=== PATIENT | female | born 1980 | race Caucasian/White ===

== ENCOUNTER 2021-08-28 11:58 | Emergency (ER) | payer MEDICAID, SELFPAY ==
[2021-08-28] VITALS (25 sets, daily range): BP systolic 124–142; BP diastolic 67–96; PULSE 85–116; RESP 8–26; TEMP 37.7–39.4; O2SAT 93–100
--- NOTE | ~2021-08-28 | XR_ITS ---
XR chest 2V 08/28/2021 12:34 Indication: Left-sided chest pain Procedure: 2 view chest Comparison: No prior studies for comparison. Findings: Heart size normal. Left basilar infiltrates. No edema, pleural effusion or pneumothorax. No acute osseous abnormality. Impression: 1: Left basilar infiltrates, most likely atelectasis. Pneumonia less favored. Reviewed, dictated and finalized at location A. Impression: 1: Left basilar infiltrates, most likely atelectasis. Pneumonia less favored.
--- NOTE | 2021-08-28 11:59 | ECG_ITS ---
Measurements Intervals [place] Rate: 102 P: 21 MI: 151 QRS: -4 QRSD: 86 T: 25 QT: 314 QTc: 411 Interpretive Statements SINUS TACHYCARDIA INCOMPLETE RIGHT BUNDLE BRANCH BLOCK DELAYED PRECORDIAL R/S TRANSITION LOW QRS VOLTAGE IN PRECORDIAL LEADS BORDERLINE T WAVE ABNORMALITY- ANTERIOR LEADS BORDERLINE ECG Electronically Signed On 08-28-2021 13:02:17 CDT by Carlos Salcido D.O.
[2021-08-28 12:22] LABS: Basophils Absolute Auto 0.1 K/mm3 (0.0-0.1); Basophils Percent Auto 0.4 % (0.2-1.2); Eosinophils Percent Auto 0.2 % (0-4.4); Hematocrit 38.9 % (37.0-47.0); Immature Granulocyte Absolute 0.05 K/mm3 (0.00-0.031); Immature Granulocyte Percent A 0.4 % (0-0.5); Lymphocytes Absolute Auto 1.16 K/mm3 (0.9-3.2); Lymphocytes Percent Auto 8.9 % (18.3-44.2); Mean Corpuscular HGB Conc 33.4 g/dl (32-36); Mean Corpuscular Hemoglobin 30.1 pg (26-34); Mean Platelet Volume 10.6 fl (7.4-10.4); Monocytes Absolute Auto 1.6 K/mm3 (0.1-0.6); Monocytes Percent Auto 11.9 % (2.6-8.5); Neutrophils Absolute Auto 10.2 K/mm3 (1.3-6.7); Neutrophils Percent Auto 78.2 % (45.5-73.1); Platelet Count Result 263 k/mm3 (150-375); Red Blood Count 4.32 M/mm3 (4.2-5.4); Red Cell Distribution Width 12.1 % (11.5-14.5); White Blood Count 13.1 K/mm3 (4.5-10.0)
--- NOTE | 2021-08-28 12:31 | PC.NURSE ---
Patient off unit to Radiology .
[2021-08-28 12:32] LABS: INR 1.1; Prothrombin Time 13.6 Seconds (11.1-14.7)
[2021-08-28 12:33] LABS: Alanine Aminotransferase 91 U/L (6-35); Albumin Level 4.2 g/dL (3.5-5.1); Alkaline Phosphatase 94 U/L (38-126); Anion Gap 6 mmol/L (8-16); Aspartate Amino Transferase 66 U/L (14-36); Bilirubin,Total 2.7 mg/dL (0.2-1.3); Blood Urea Nitrogen 10 mg/dL (7-17); Calcium 8.9 mg/dL (8.4-10.2); Carbon Dioxide 24 mmol/L (22-30); Chloride 106 mmol/L (98-107); Estimated CRCL calculation 106 ml/min; Estimated Glomerular Filt Rate > 60; Glucose 103 mg/dL (65-110); Lipase 20 U/L (23-300); Partial Thromboplastin Time 32.5 SECONDS (22.3-36.8); Potassium 4.1 mmol/L (3.4-5.0); Sodium 136 mmol/L (137-145)
[2021-08-28 12:44] LABS: Troponin I < 0.012 ng/mL (0.000-0.034)
--- NOTE | 2021-08-28 12:51 | PC.NURSE ---
Dr. Muhammad at bedside to assess pt.
[2021-08-28] MEDS: ONDANSETRON INJ 4 MG/2 ML VIAL IV PUSH (13:11)
[2021-08-28] MEDS: SODIUM CHLORIDE 0.9% IV 1,000 ML 999 ML IV CONT (13:11)
[2021-08-28] MEDS: KETOROLAC 30 MG/ML VIAL (*BKC) IV PUSH (13:11)
[2021-08-28 13:21] LABS: Appearance Urine Cloudy (Clear); Bilirubin Urine Negative (Negative); Blood Urine 2+ (Negative); Color Urine Yellow (Yellow); Glucose Urine UA Negative (Negative); Ketones Urine Negative (Negative); Leukocyte Esterase Ur 3+ LEU/UL (Negative); Nitrate Urine Positive (Negative); Protein Urine 3+ mg/dL (Negative); Specific Grav Ur 1.025 (1.001-1.035); Urobilinogen Urine >=8.0 mg/dL (<2.0); pH Urine 7.5 (5.0-9.0)
[2021-08-28 13:29] LABS: Add Urine Microscopic? YES; Bacteria Urine Trace /hpf; Squamous Epithelial Cell Urine Occasional /hpf (Few); WBC Clumps Urine Present /HPF; WBC Urine >75 /hpf
[2021-08-28] MEDS: ACETAMINOPHEN 500 MG TABLET 1000 MG PO (13:51)
--- NOTE | 2021-08-28 14:07 | ED.GENADULT ---
HPI - General Adult General Chief complaint: Chest Pain Stated complaint: chest pain Time Seen by Provider: 08/28/21 12:40 History of Present Illness HPI narrative: Patient is a 41-year-old female who presents ER with left-sided back pain. Sudden onset. Goes up into her shoulder into her leg. Associate with some chest pain as well. She also endorses some left side abdominal. Developed nausea while here. Been ongoing for couple of hours. Patient can be febrile here. No sinus congestion sore throat or productive cough. No known sick contacts. She does endorse that she has had some dark burning urination for the last week. Has history of kidney infections unsure if this is similar. Has not take any pain medication for her discomfort. Related Data Allergies Allergy/AdvReac Type Severity Reaction Status Date / Time No Known Allergies Allergy Verified 08/28/21 12:47 Review of Systems Review of Systems: All systems reviewed & are unremarkable except as noted in HPI and below Constitutional: Constitutional: Denies chills, Reports fatigue and Reports fever(s) ENT: Denies nasal congestion and Denies sore throat Cardiovascular: Cardiovascular: Reports chest pain, Denies rapid heart rate and Reports radiating jaw, neck or arm pain Respiratory: Respiratory: Denies chest congestion, Denies cough and Denies dyspnea Gastrointestinal: Gastrointestinal: Reports abdominal pain, Denies diarrhea, Reports nausea and Denies vomiting Genitourinary: Genitourinary: Denies hematuria, Reports nocturia, Reports dysuria and Reports flank pain Musculoskeletal: Musculoskeletal: Reports myalgias and Denies arthralgias PMFSH Past Medical History Medical History (Updated 08/28/21 @ 16:33 by Huber Muhammad MD) Healthy female adult Surgical History Surgical History (Updated 08/28/21 @ 14:09 by Huber Muhammad MD) No history of previous surgery Social History Social History (Updated 08/28/21 @ 14:09 by Huber Muhammad MD) Smoking status: Never smoker Exam Narrative: GENERAL: Fatigued-appearing, well-nourished, and in no acute distress. HEAD: Normocephalic, atraumatic. EYES: PERRL and EOMI. ENT: Nares clear, no rhinorrhea or epistaxis. Mucous membranes moist. NECK: Supple. CHEST: Clear to auscultation. No respiratory distress. HEART: Tachycardic and regular. Normal peripheral pulses. ABDOMEN: Soft, nontender, nondistended, normal active bowel sounds. Back: No reproducible midline tenderness of the T/L-spine. Left CVA tenderness noted but no right CVA tenderness. No palpable spasm in the paraspinal musculature. EXTREMITIES: Normal range of motion. No edema. SKIN: Warm, dry, no rash. NEURO: Alert and oriented x3. PSYCH: Normal mood and affect. Course Vital Signs Vital signs: Vital Signs Temperature 101.7 F H 08/28/21 12:01 Pulse Rate 108 H 08/28/21 12:01 Respiratory Rate 14 08/28/21 12:01 Blood Pressure 142/89 H 08/28/21 12:01 Pulse Oximetry 100 08/28/21 12:01 Oxygen Delivery Room Air 08/28/21 12:01 Temperature 99.9 F H 08/28/21 14:45 Pulse Rate 102 H 08/28/21 14:45 Respiratory Rate 10 L 08/28/21 14:45 Blood Pressure 138/92 H 08/28/21 14:31 Pulse Oximetry 94 08/28/21 14:45 Oxygen Delivery Room Air 08/28/21 12:48 Medical Decision Making Vital Signs Vital Signs: Vital Signs Temperature 101.7 F H 08/28/21 12:01 Pulse Rate 108 H 08/28/21 12:01 Respiratory Rate 14 08/28/21 12:01 Blood Pressure 142/89 H 08/28/21 12:01 Pulse Oximetry 100 08/28/21 12:01 Oxygen Delivery Room Air 08/28/21 12:01 Temperature 99.9 F H 08/28/21 14:45 Pulse Rate 102 H 08/28/21 14:45 Respiratory Rate 10 L 08/28/21 14:45 Blood Pressure 138/92 H 08/28/21 14:31 Pulse Oximetry 94 08/28/21 14:45 Oxygen Delivery Room Air 08/28/21 12:48 Lab Data Result diagrams: 08/28/21 12:12 08/28/21 12:12 Labs: Lab Results 08/28/21 0
[2021-08-28 14:12] LABS: Influenza A QL RT-PCR Negative (Negative); Influenza B QL RT-PCR Negative (Negative); SARS-CoV-2 RNA PCR Negative
[2021-08-28 16:16] LABS: Troponin I < 0.012 ng/mL (0.000-0.034)
== END 2021-08-28 16:53 | disposition home or self-care (01) ==
PROVIDERS: Emergency Medicine; Emergency Provider Emergency Medicine
DX: N12 Tubulo-interstitial nephritis, not specified as acute or chronic (principal); Z20.822 Contact with and (suspected) exposure to COVID-19
CPT/HCPCS: 36415; 71046; 80053; 81001; 83690; 84484; 85025; 85610; 85730; 87077; 87086; 87088; 87186; 87502; 93005; 96365; 96375; 99284; A9270; C9803; J0696; J1885; J2405; J7030; U0003; U0005

== ENCOUNTER 2022-01-07 15:15 | Emergency (ER) | payer OTHER, SELFPAY ==
[2022-01-07 15:24] VITALS: BP 150/97; PULSE 96; RESP 16; TEMP 36.8; O2SAT 99
--- NOTE | 2022-01-07 15:32 | ED.BACK ---
HPI - Back Pain/Injury General Chief Complaint: Back Pain/Injury Stated Complaint: lowerback/rib pain Time Seen by Provider: 01/07/22 15:30 Source: patient Mode of arrival: ambulatory Limitations: no limitations History of Present Illness HPI Narrative: Ms. Parry is a 41-year-old female patient presenting to clinic today with complaints of low back pain and bilateral rib pain. She reports that she had episode of nausea and vomiting 2 days ago and developed back pain and rib pain yesterday. She reports she is taking some old Flexeril in they do not seem to be helping her. Feels as though she is having muscle spasms in her back as well as in her ribs. She denies any shortness of breath or chest pain. States that she does have some pain with walking and trying to stand up straight. She rates her pain a 9/10 currently. She has not taken any pain medications this morning Related Data Home Medications Medication Instructions Recorded Confirmed hydroxyzine HCl 25 mg tablet mg 01/07/22 Allergies Allergy/AdvReac Type Severity Reaction Status Date / Time No Known Allergies Allergy Unverified 09/02/21 11:01 Review of Systems Review of Systems: Pertinent positives per HPI. Patient denies any fever, chills, rash, headache, visual changes, dizziness, cough, runny nose, sore throat, shortness of breath, chest pain, palpitations, nausea, vomiting, diarrhea, constipation, abdominal pain, or any urinary issues. PMFSH Past Medical History Medical History Healthy female adult Surgical History Surgical History No history of previous surgery Social History Social History Smoking status: Never smoker Comments At the time of my signature, I reviewed and agree with the nursing past medical, surgical, social, and family history. There is no relevant family history pertinent to the patient complaint. Exam Narrative: General: Well-developed, well nourished, in no apparent distress Head: Normocephalic, atraumatic. Cardio: Regular rate and rhythm, s1 and s2 normal, no murmur appreciated. Resp: Clear to auscultation bilaterally, no rhonchi, rales, wheezing or rubs. Musculoskeletal: No deformity, exquisite tenderness to light palpation across the low back and across the upper abdomen lower ribs, grossly normal range of motion, muscle strength strong and equal, peripheral pulse strong, no edema, no cyanosis, cautious and slow gait and station. Not wanting to stand up straight due to pain Course Course Emergency Course: Portions of this record may have been created with voice recognition software. Level of Care: Express Care Visit Vital Signs Vital signs: Vital Signs Temperature 36.8 C 01/07/22 15:24 Pulse Rate 96 01/07/22 15:24 Respiratory Rate 16 01/07/22 15:24 Blood Pressure 150/97 H 01/07/22 15:24 Pulse Oximetry 99 01/07/22 15:24 Oxygen Delivery Room Air 01/07/22 15:24 Temperature 36.8 C 01/07/22 15:24 Pulse Rate 96 01/07/22 15:24 Respiratory Rate 16 01/07/22 15:24 Blood Pressure 150/97 H 01/07/22 15:24 Pulse Oximetry 99 01/07/22 15:24 Oxygen Delivery Room Air 01/07/22 15:24 Vital signs reviewed MDM - Back Pain/Injury MDM Narrative Medical decision making narrative: At the time of visit patient is resting in the exam chair with moderate to severe pain. She rates her pain 9 at 10 currently. Toradol 60 mg IM given in the clinic today. I suspect the patient has also lower lumbar strain and abdominal wall muscle strain from vomiting 2 days [address] I will place her on a prescription for some naproxen as well as some Flexeril. Differential Diagnosis Differential diagnosis: Likely lumbar radiculopathy, strain of lumbar region and other ( Abdominal wall pain) Discharge Plan Discharge
[2022-01-07] MEDS: KETOROLAC (*BKC) 60 MG/2 ML VIAL IM (15:39)
== END 2022-01-07 16:06 | disposition home or self-care (01) ==
PROVIDERS: Emergency Provider Nurse Practitioner Family; PCP Physician Assistant
DX: S39.012A Strain of muscle, fascia and tendon of lower back, initial encounter (principal); S39.011A Strain of muscle, fascia and tendon of abdomen, initial encounter; X58.XXXA Exposure to other specified factors, initial encounter
CPT/HCPCS: 96372; 99213; G0463; J1885

== ENCOUNTER 2022-03-19 07:29 | Outpatient (CLI) | payer OTHER, SELFPAY ==
--- NOTE | ~2022-03-19 | MM_ITS ---
EXAMINATION: MM screening samia BI w mathew HISTORY: Screening mammogram TECHNIQUE: Craniocaudal and mediolateral oblique 3-D tomosynthesis images were obtained and synthetic 2-D images were generated. Bilateral rotated lateral CC views. CAD analysis was submitted and interp reted. COMPARISON: No prior mammogram is available for comparison at this institution. BREAST PARENCHYMAL COMPOSITION: The breasts are heterogeneously dense, which may obscure small masses . FINDINGS: There is no evidence of suspicious mass, calcification, or architectural distortion to sugg est malignancy in either breast. There has been no suspicious interval change. IMPRESSION: 1. No mammographic evidence of malignancy. 2. Recommend routine screening mammography in one year. BI-RADS Category 1: Negative Reviewed, dictated and finalized at location B. [employer]
== END 2022-03-19 07:30 | disposition home or self-care (01) ==
LOC: ANHIMG 07:32
PROVIDERS: PCP Physician Assistant; Visit Provider Physician Assistant
DX: Z12.31 Encounter for screening mammogram for malignant neoplasm of breast (principal)
CPT/HCPCS: 77063; 77067

== ENCOUNTER 2022-07-20 15:15 | Emergency (ER) | payer OTHER, SELFPAY ==
[2022-07-20 15:24] VITALS: BP 139/84; PULSE 72; RESP 16; TEMP 37; O2SAT 99
--- NOTE | 2022-07-20 15:57 | ED.GENADULT ---
HPI - General Adult General Chief complaint: Urogenital-Female Stated complaint: Vaginal Problems Source: patient Mode of arrival: ambulatory Limitations: no limitations History of Present Illness HPI narrative: Patient presents for evaluation of a burning sensation in her vagina this started 3 days ago. She believes she has an infection associated with using a public toilet 2 days prior to that. She has noted some blood and white discharge on tissue when wiping after urinating. She believes she cut herself with her fingernail when wiping vigorously following urination. She states her significant other two months ago and she has not been sexually active since that time. She has not had a period since December 2021. She has an IUD. Denies any abdominal pain, nausea, vomiting, fever chills. Denies any hx of STI. States she has burning sensation during urination without other urinary symptoms. Related Data Home Medications Medication Instructions Recorded Confirmed Unknown Iud 07/20/22 amitriptyline 100 mg tablet mg 07/20/22 hydrochlorothiazide 25 mg tablet mg 07/20/22 Allergies Allergy/AdvReac Type Severity Reaction Status Date / Time No Known Allergies Allergy Verified 07/20/22 15:26 Review of Systems Review of Systems: CONSTITUTIONAL: Denies fever, chills, or sweats. EYES: Denies visual changes, redness, or discharge. ENT: Denies rhinorrhea, congestion, sore throat, or otalgia. CARDIOVASCULAR: Denies chest pain, palpitations, or edema. RESPIRATORY: Denies cough or dyspnea. GASTROINTESTINAL: Denies abdominal pain, nausea, vomiting, or diarrhea. GENITOURINARY: reports burning sensation in the vagina with white discharge. Reports blood on the tissue when wiping following urination. Reports dysuria without other urinary symptoms. Denies vaginal bleeding other than on tissue when wiping following urination. SKIN: reports a wound to the vaginal area MUSCULOSKELETAL: Denies back pain, joint pain, or myalgia. NEUROLOGIC: Denies headache, numbness, dizziness, or weakness. PSYCHIATRIC: Denies anxiety or depression. [facility] Past Medical History Medical History Healthy female adult Surgical History Surgical History No history of previous surgery Family History Family History Mother Family history non-contributory Social History Social History Smoking status: Never smoker Gender identity (if verbalized by the patient): Female Sexual Orientation (if Verbalized by the Patient): Straight or Heterosexual Spiritual care concerns: No Exam Narrative: GENERAL: Well-appearing, well-nourished, and in no acute distress. HEAD: Normocephalic, atraumatic. EYES: PERRLA and EOMI. ENT: Nares clear, no rhinorrhea or epistaxis. Mucous membranes moist. Oropharynx without tonsillar hypertrophy exudate or other lesions. Bilateral TMs pearly conteh nonbulging NECK: Supple. No adenopathy or masses. No carotid bruits or JVD CHEST: Clear to auscultation. No respiratory distress. No wheezes rales or rhonchi HEART: Regular rate and rhythm. No murmur heard. Normal peripheral pulses. ABDOMEN: Soft, nontender, nondistended, normal active bowel sounds. EXTREMITIES: Normal range of motion. No edema. GENITAL: (performed in company of manager supply chain planning ISABELA Hauser): no external genital lesions. There is a linear fissure between the labia which appears to be a simple excoriation. Labia are erythematous. There is a thick yellow/ green discharge in vaginal vault. I cannot visualize IUD strings. She has no adnexal tenderness or cervical motion tenderness SKIN: Warm, dry, no rash. NEURO: No focal deficits. Alert and oriented x3. PSYCH: Normal mood and affect. Course Cours
== END 2022-07-20 16:00 | disposition home or self-care (01) ==
PROVIDERS: Emergency Provider Nurse Practitioner; PCP Physician Assistant
DX: N76.0 Acute vaginitis (principal); N30.00 Acute cystitis without hematuria
CPT/HCPCS: 81003; 81025; 87070; 87086; 87255; 87491; 87591; 87661; 99214; G0463

== ENCOUNTER 2022-11-23 13:29 | Emergency (ER) | payer OTHER, SELFPAY ==
--- NOTE | ~2022-11-23 | XR_ITS ---
XR lumbar spine 2-3V 11/23/2022 14:11 Indication: Low back pain Procedure: 3 views lumbar spine Comparison: No prior studies for comparison. Findings: Vertebral body heights are maintained. There is disc narrowing at all lumbar levels. There is facet hypertrophy at L4-5 and L5-S1. No acute fracture or traumatic malalignment. No evidence for spondylolisthesis. Pedicles intact. There is an IUD in the pelvis. Sacral foramen are symmetric. Impression: 1: Moderate lumbar spondylosis. Reviewed, dictated and finalized at location L. Impression: 1: Moderate lumbar spondylosis.
--- NOTE | 2022-11-23 13:40 | ED.BACK ---
HPI - Back Pain/Injury General Chief Complaint: Back Pain/Injury Stated Complaint: Back/Left Leg Pain Time Seen by Provider: 11/23/22 13:41 Source: patient Mode of arrival: ambulatory Limitations: no limitations History of Present Illness HPI Narrative: Abena is a 42-year-old female patient presenting to the clinic today with complaints of back and left leg pain. She reports the pain started approximately 3 weeks ago when she got out of her truck and felt a pop to her left lower back. She denies any saddle anesthesia or loss of bowel bladder. Reports that she is having numbness and tingling in the left leg with the low back/hip pain. States she went to her PCP 1 week ago and was prescribed a muscle relaxer as they thought at that time that her pain was caused by muscle spasms. She has been taking ibuprofen with minimal relief. Rates her pain a 10/10 currently. Last dose of Motrin was at 6:00 a.m. this morning. States she is unable to sit due to the pain and standing will not bearing much weight on her left leg is the most comfortable position. She reports she is having difficulty walking due to the pain. Related Data Home Medications Medication Instructions Recorded Confirmed Unknown Iud 07/20/22 amitriptyline 100 mg tablet mg 07/20/22 hydrochlorothiazide 25 mg tablet mg 07/20/22 cyclobenzaprine 10 mg tablet mg 11/23/22 11/23/22 Allergies Allergy/AdvReac Type Severity Reaction Status Date / Time No Known Allergies Allergy Verified 11/23/22 13:45 Review of Systems Review of Systems: Pertinent positives per HPI. Patient denies any fever, chills, rash, headache, visual changes, dizziness, cough, runny nose, sore throat, shortness of breath, chest pain, palpitations, nausea, vomiting, diarrhea, constipation, abdominal pain, or any urinary issues. [facility] Past Medical History Medical History Healthy female adult Surgical History Surgical History No history of previous surgery Family History Family History Mother Family history non-contributory Social History Social History Smoking status: Never smoker Gender identity (if verbalized by the patient): Female Sexual Orientation (if Verbalized by the Patient): Straight or Heterosexual Spiritual care concerns: No Comments At the time of my signature, I reviewed and agree with the nursing past medical, surgical, social, and family history. There is no relevant family history pertinent to the patient complaint. Exam Narrative: General: Well-developed, well nourished, in no apparent distress Head: Normocephalic, atraumatic. Cardio: Regular rate and rhythm, s1 and s2 normal, no murmur appreciated. Resp: Clear to auscultation bilaterally, no rhonchi, rales, wheezing or rubs. Musculoskeletal: No deformity, non-tender to palpation, grossly normal range of motion, muscle strength strong and equal, peripheral pulse strong, no edema, no cyanosis, normal gait and station Course Course Emergency Course: Portions of this record may have been created with voice recognition software. Level of Care: Express Care Visit Vital Signs Vital signs: Vital signs reviewed MDM - Back Pain/Injury MDM Narrative Medical decision making narrative: At the time of visit patient is resting on the exam table. X-ray of the lumbar spine was performed and was negative for any sign fracture or malalignment. I suspect the patient has lumbar radiculopathy with sciatica on the left side. Toradol 60 mg IM was given in the clinic for pain. Prescription for Medrol Dosepak was also given. Patient is continue her muscle relaxers. Supportive measures were discussed with the patient she voiced understanding the discharge instructions. Return to
[2022-11-23 13:44] VITALS: BP 117/70; PULSE 85; RESP 16; TEMP 37.4; O2SAT 98
[2022-11-23 13:46] VITALS: BP 117/70; PULSE 85; RESP 16; TEMP 37.4; O2SAT 98
[2022-11-23] MEDS: KETOROLAC (*BKC) 60 MG/2 ML VIAL IM (14:14)
== END 2022-11-23 14:38 | disposition home or self-care (01) ==
PROVIDERS: Emergency Provider Nurse Practitioner Family; PCP Physician Assistant
DX: M54.42 Lumbago with sciatica, left side (principal)
CPT/HCPCS: 72100; 96372; 99213; G0463; J1885

== ENCOUNTER 2023-05-22 17:26 | Emergency (ER) | payer OTHER, SELFPAY ==
[2023-05-22 17:49] VITALS: BP 134/92; PULSE 91; RESP 16; TEMP 37.6; O2SAT 100
--- NOTE | 2023-05-22 18:32 | ED.GENADULT ---
HPI - General Adult General Chief complaint: Upper Respiratory Infection Stated complaint: SOB, freezing Source: patient Mode of arrival: ambulatory Limitations: no limitations History of Present Illness HPI narrative: Patient presents for evaluation of sick symptoms for last 3 days. Symptoms include fever, chills, headache, sore throat, sinus congestion, clear rhinorrhea, mild shortness of breath. She denies any significant cough, nausea, vomiting, diarrhea. No recent sick contacts to her knowledge. She is taking nytl-[id number]-[id number] cough and cold medications with mild improvement in her symptoms or after. She does not smoke. Related Data Home Medications Medication Instructions Recorded Confirmed hydrochlorothiazide 25 mg tablet 25 mg PO DAILY 07/20/22 05/22/23 dulaglutide 3 mg/0.5 mL See Rx Instructions .Route .COMPLEX 05/22/23 05/22/23 subcutaneous pen injector (Trulicity) Allergies Allergy/AdvReac Type Severity Reaction Status Date / Time No Known Allergies Allergy Verified 05/22/23 17:36 Review of Systems Review of Systems: CONSTITUTIONAL: Reports fever and chills. EYES: Denies visual changes, redness, or discharge. ENT: Reports sinus congestion, clear rhinorrhea, sore throat. CARDIOVASCULAR: Denies chest pain, palpitations, or edema. RESPIRATORY: Reports mild shortness of breath. Denies significant cough. GASTROINTESTINAL: Denies abdominal pain, nausea, vomiting, or diarrhea. GENITOURINARY: Denies dysuria or hematuria. SKIN: Denies rash or itching. MUSCULOSKELETAL: Denies back pain, joint pain, or myalgia. NEUROLOGIC: Reports headache. Denies numbness, dizziness, or weakness. PSYCHIATRIC: Denies anxiety or depression. [facility] Past Medical History Medical History Healthy female adult Surgical History Surgical History No history of previous surgery Family History Family History Mother Family history non-contributory Social History Social History Smoking status: Never smoker Substance use: never Gender identity (if verbalized by the patient): Female Sexual Orientation (if Verbalized by the Patient): Straight or Heterosexual Spiritual care concerns: No Exam Narrative: GENERAL: appears acutely ill but nontoxic. HEAD: Normocephalic, atraumatic. EYES: PERRLA and EOMI. ENT: Nares clear, no rhinorrhea or epistaxis. Mucous membranes moist. Mild posterior pharyngeal erythema. No exudate. Uvula is midline.. Bilateral TMs pearly cnoteh nonbulging NECK: Supple. No adenopathy or masses. No carotid bruits or JVD CHEST: Clear to auscultation. No respiratory distress. No wheezes rales or rhonchi HEART: Regular rate and rhythm. No murmur heard. Normal peripheral pulses. ABDOMEN: Soft, nontender, nondistended, normal active bowel sounds. EXTREMITIES: Normal range of motion. No edema. SKIN: Warm, dry, no rash. NEURO: No focal deficits. Alert and oriented x3. PSYCH: Normal mood and affect. Course Course Emergency Course: This is a 42-year-old female who presented for evaluation of sick symptoms. Influenza B positive. Will treat with Tamiflu. Increase hydration. Dzcu-ajw-grxjpln agents for symptom management. Follow up with primary provider. Go to the ER for worsening symptoms. Patient in agreement with plan of care. Level of Care: Express Care Visit Vital Signs Vital signs: Vital Signs Temperature 37.6 C 05/22/23 17:49 Pulse Rate 91 05/22/23 17:49 Respiratory Rate 16 05/22/23 17:49 Blood Pressure 134/92 H 05/22/23 17:49 Pulse Oximetry 100 05/22/23 17:49 Oxygen Delivery Room Air 05/22/23 17:49 Temperature 37.6 C 05/22/23 17:49 Pulse Rate 91 05/22/23 17:49 Respiratory Rate 16
== END 2023-05-22 18:52 | disposition home or self-care (01) ==
PROVIDERS: Emergency Provider Nurse Practitioner; PCP Physician Assistant
DX: J10.1 Influenza due to other identified influenza virus with other respiratory manifestations (principal); Z20.822 Contact with and (suspected) exposure to COVID-19
CPT/HCPCS: 87081; 87426; 87804; 87880; 99213; G0463

== ENCOUNTER 2023-06-06 07:26 | Outpatient (CLI) | payer OTHER, SELFPAY ==
--- NOTE | ~2023-06-06 | MM_ITS ---
EXAMINATION: MM screening samia BI w mathew HISTORY: Screening mammogram TECHNIQUE: Craniocaudal and mediolateral oblique 3-D tomosynthesis images were obtained and synthetic 2-D images were generated. CAD analysis was submitted and interpreted. COMPARISON: 03/19/2022 bilateral screening mammogram BREAST PARENCHYMAL COMPOSITION: The breasts are heterogeneously dense, which may obscure small masses . FINDINGS: There is no evidence of suspicious mass, calcification, or architectural distortion to sugg est malignancy in either breast. There has been no suspicious interval change. IMPRESSION: 1. No mammographic evidence of malignancy. 2. Recommend routine screening mammography in one year. BI-RADS Category 1: Negative Reviewed, dictated and finalized at location A.
== END 2023-06-06 07:27 | disposition home or self-care (01) ==
LOC: ANHIMG 07:28
PROVIDERS: PCP Physician Assistant; Visit Provider Physician Assistant
DX: Z12.31 Encounter for screening mammogram for malignant neoplasm of breast (principal)
CPT/HCPCS: 77063; 77067

== ENCOUNTER 2023-12-04 16:02 | Emergency (ER) | payer OTHER, SELFPAY ==
[2023-12-04 16:13] VITALS: BP 130/88; PULSE 78; RESP 16; TEMP 36.2; O2SAT 99
--- NOTE | 2023-12-04 16:28 | ED.URI ---
HPI - URI/Sore Throat General Chief Complaint: Upper Respiratory Infection Stated Complaint: runny nose,hurts to swallow,loss of voice Time Seen by Provider: 12/04/23 16:31 Source: patient, RN notes reviewed and old records reviewed Mode of arrival: ambulatory Limitations: no limitations History of Present Illness HPI Narrative: Patient presents with complaints of runny nose, sore throat, hoarse voice. Symptoms began yesterday. She reports most bothersome symptoms are sore throat and hoarseness. She denies any fever, chills, sweats. She denies any injury or trauma. No other concerns or complaints at this time. Related Data Home Medications Medication Instructions Recorded Confirmed hydrochlorothiazide 25 mg tablet 25 mg PO DAILY 07/20/22 12/04/23 dulaglutide 3 mg/0.5 mL See Rx Instructions .Route .COMPLEX 05/22/23 12/04/23 subcutaneous pen injector (Trulicity) Allergies Allergy/AdvReac Type Severity Reaction Status Date / Time No Known Allergies Allergy Verified 12/04/23 16:09 Review of Systems Review of Systems: All systems reviewed & are unremarkable except as noted in HPI and below Constitutional: Constitutional: Reports no additional constitutional complaints ENT: Reports system reviewed and no additional complaints, except as documented, Reports as per HPI, Reports change in voice, Reports hoarseness, Reports nasal congestion, Reports nasal discharge and Reports sore throat Cardiovascular: Cardiovascular: Reports no additional cardiovascular complaints Respiratory: Respiratory: Reports no additional respiratory complaints Gastrointestinal: Gastrointestinal: Reports no additional gastrointestinal complaints [facility] Past Medical History Medical History Healthy female adult Surgical History Surgical History No history of previous surgery Family History Family History Mother Family history non-contributory Social History Social History Smoking status: Never smoker Substance use: never Gender identity (if verbalized by the patient): Female Sexual Orientation (if Verbalized by the Patient): Straight or Heterosexual Spiritual care concerns: No Comments At the time of my signature, I reviewed and agree with the nursing past medical, surgical, social, and family history. There is no relevant family history pertinent to the patient complaint. Exam Const: General: cooperative, no acute distress, alert and awake Orientation/consciousness: oriented to person, oriented to place and oriented to time HENMT: Head: normal to inspection Ears: TM's normal bilaterally Mouth: Yes moist mucous membranes Throat: posterior oropharynx abnormal erythema Other: hoarse voice noted Resp: Effort & Inspection: normal respiratory effort and able to speak in complete sentences Auscultation: clear to auscultation bilaterally, no crackles, no rales, no rhonchi and no wheezes Cardio: Palpation: normal PMI Rate: regular rate Rhythm: regular rhythm Heart sounds: S1 normal heart sound present and S2 normal heart sound present Neuro: General: oriented to person, oriented to place and oriented to time Cranial nerves: Yes CN's II-XII intact bilaterally Psych: Appearance: grossly normal Thought process: Normal thought process present Insight: Good insight present (Psych) Judgement: Good judgement present (Psych) Course Course Level of Care: Express Care Visit Vital Signs Vital signs: Vital Signs Temperature 97.2 F L 12/04/23 16:13 Pulse Rate 78 12/04/23 16:13 Respiratory Rate 16 12/04/23 16:13 Blood Pressure 130/88 12/04/23 16:13 Pulse Oximetry 99 12/04/23 16:13 Oxygen Delivery Room Air 12/04/23 16:13 Temperature 97.2 F L 12/04/23 16:13 Puls
[2023-12-04 16:42] LABS: EDCOVIDSCREEN Negative (Negative); EDINFLUASCREEN Negative (Negative); EDINFLUBSCREEN Negative (Negative)
[2023-12-04 16:43] LABS: EDSTREPNEGPOS1 Negative (Negative)
== END 2023-12-04 17:21 | disposition home or self-care (01) ==
PROVIDERS: Emergency Provider Nurse Practitioner Family; PCP Physician Assistant
DX: J06.9 Acute upper respiratory infection, unspecified (principal); Z20.822 Contact with and (suspected) exposure to COVID-19
CPT/HCPCS: 87081; 87426; 87804; 87880; 99213; G0463

== ENCOUNTER 2024-02-20 07:45 | Outpatient (CLI) | payer OTHER, SELFPAY ==
--- NOTE | 2024-02-20 07:54 | ECG_ITS ---
Test Date: 2024-02-20 08:15:26 Measurements Intervals [place] Rate: 70 P: 5 MO: 171 QRS: -5 QRSD: 94 T: 21 QT: 378 QTc: 410 Interpretive Statements SINUS RHYTHM LOW QRS VOLTAGE IN PRECORDIAL LEADS [QRS DEFLECTION < 1.0 mV IN CHEST LEADS] WARNING: DATA QUALITY MAY AFFECT INTERPRETATION No previous ECG available for comparison Electronically Signed On 02-21-2024 14:51:49 PRINCIPAL TECHNICAL WRITER by Gurpreet Lion M.D.
[2024-02-20 08:23] LABS: Hematocrit 41.2 % (37.0-47.0); Hemoglobin 13.7 g/dL (12.0-15.0)
[2024-02-20 08:41] LABS: Alanine Aminotransferase 23 U/L (6-35); Albumin Level 3.8 g/dL (3.5-5.1); Alkaline Phosphatase 74 U/L (38-126); Anion Gap 3 mmol/L (4-12); Aspartate Amino Transferase 19 U/L (14-36); Bilirubin,Total 1.1 mg/dL (0.2-1.3); Blood Urea Nitrogen 18 mg/dL (7-17); Calcium 9.1 mg/dL (8.4-10.2); Carbon Dioxide 28 mmol/L (22-30); Chloride 108 mmol/L (98-107); Estimated Glomerular Filt Rate > 60; Glucose 99 mg/dL (65-110); Potassium 3.9 mmol/L (3.4-5.0); Sodium 139 mmol/L (137-145)
--- OUTSIDE RECORDS SUMMARY | 2024-02-27 09:51 | XMS_ITS | CONTINUITY OF CARE DOCUMENT ---
Author Name shyla mansfield Address Unknown Organization [facility] Address [address] [place] [address] Phone [phone] Care Team Providers Care Ship'S Pilot Name Role Phone shyla mansfield Unavailable Unavailable INSURANCE PROVIDERS Payer name Policy type / Coverage type Roland red democrat [place] [id number] MEDICAID (2) Medicaid [id number]
--- OUTSIDE RECORDS SUMMARY | 2024-02-27 09:52 | XMS_ITS | Continuity of Care Document ---
Author Organization [facility] [place] Address [address] [place] [address] Care Team Providers Care Operating Room Specialist Name Role Phone ISAACDWAINERICCOKALYANI Primary Care Provider [phone] Assessment No assessment recorded. Plan of Treatment Reminders Order Date Submit Date Provider Last Modified By Organization Details Last Modified Time Details Appointments None recorded. Lab None recorded. Referral None recorded. Procedures None recorded. Surgeries robotic assisted hysterectom y w/bilateral salpingo-oo phorectomy (SURG) 2023 024 [facility] Surgery [facility], [address], [place], [address], 12:05:32 Imaging None recorded. Medication Orders None recorded. Patient TargetsNo targets recorded. Patient InstructionsNo instructions recorded. Reason for Referral None Reported. Results Created Date Observation Date Name Description Value Unit Range Abnormal Flag Note LastModifiedBy Organization Detail LastModifiedTime 12/08/1912/08/2023 US, pelvi s No observ ation record ed. [email or web address] [place] [address], [place], [address], 12/08/2023 10:29:38 12/08/1912/08/2023 US, trans vagin al No observ ation record ed. [email or web address] [place] [address], [place], [address], 12/08/2023 10:29:48 12/08/1912/08/2023 US, pelvi s No observ ation record ed. [email or web address] [address], [place], [address], 12/08/2023 22:24:30 Result Notes None recorded. Problems Name Problem SNOMED Code Status Onset Date Resolution Date Notes Provider Name and Address Organization Details Recorded Time Removal of intrauter ine device Active 2012 REMOVAL OF IUD;Record ed Elsewhere: No Locatio n: [facility] rce: EHR Chroni c: N Practice ID: [id number] Billa ble Time: 03:30:00 PM Not Available [facility] 0 16:09:36 Insertion of intrauter ine contracep tive device Active 2012 INSERTION OF IUD;Record ed Elsewhere: No Locatio n: [facility] rce: EHR Chroni c: N Practice ID: 0001 Billa ble Time: 10:30:00 AM Not Available [facility] 0 16:09:36 Uses IUD (intraute rine device) contracep tion [id number] Active 2013 Surveillan ce of intrauteri ne contracept torsten device;Rec orded Elsewhere: No Locatio n: [facility] rce: EHR Chroni c: N Practice ID: 0001 Billa ble Time: 04:00:00 PM Not Available [facility] 0 16:09:36 Screening for malignant neoplasm of cervix Active 2012 Screening for malignant neoplasms of the cervix;Rec orded Elsewhere: No Locatio n: [facility] rce: EHR Chroni c: N Practice ID: 0001 Billa ble Time: 09:00:00 AM Not Available [facility] 0 16:09:36 Specializ ed medical examinati on Active 2012 Gynecologi isela Examinatio n;Recorded Elsewhere: No Locatio n: [facility] rce: EHR Chroni c: N Practice ID: 0001 Billa ble Time: 09:00:00 AM Not Available [facility] 0 16:09:36 test negative [id number] Active 2012 examinatio n or test, negative result;Rec orded Elsewhere: No Locatio n: [facility] rce: EHR Chroni c: N Practice ID: 0001 Parul ble Time: 10:30:00 AM Not Available [facility] 16:09:36 Problem Notes None recorded. Procedures Surgical History Date Name Laterality Status Provider Name and Address Organization Details Recorded Time 02/24/20 24 ROBOTIC ASSISTED HYSTERECTOMY W/BILATERAL SALPINGO-OOPHORECT AVIS (SURG) completed Jacquelin Thomson [facility] 02/24/2024 12:06:20 04/01/19 23 Date of Last Pap Smear completed [facility] 11/28/2023 14:54:49 02/28/19 21 cholecystectomy completed [facility] 11/28/2023 16:10:10 10/20/19 08 Dilation and Curettage completed [facility] 11/28/2023 16:09:48 10/12/19 08 Colposcopy completed [facility] 11/28/2023 16:12:36 10/12/19 08 LEEP completed [facility] 11/28/2023 16:10:55 08/29/19 08 Colposcopy completed [facility] 11/28/2023 16:11:08 02/28/19 06 Dilation and Curettage completed [facility] 11/28/2023 16:09:09 02/28/19 05 Dilation and Curettage completed [facility] 11/28/2023 16:09:31 02/28/19 04 Dilation and Curettage completed [facility] 11/28/2023 16:08:51 12/14/19 02 section completed [facility] 11/28/2023 16:11:50 02/28/19 02 Dilation and Curettage completed [facility] 11/28/2023 16:08:39 02/28/19 01 Dilation and Curettage completed [facility] 11/28/2023 16:07:47 02/28/19 00 Dilation and Curettage completed [facility] 11/28/2023 16:07:42 02/28/19 00 Laparoscopy completed [facility] 11/28/2023 16:10:40 02/28/18 98 Dilation and Curettage completed [facility] 11/28/2023 16:07:26 02/28/18 97 Dilation and Curettage completed [facility] 11/28/2023 16:08:04 02/28/18 96 Dilation and Curettage completed [facility] 11/28/2023 16:08:01 02/28/18 95 Dilation and Curettage completed [facility] 11/28/2023 16:08:27 02/28/18 94 Dilation and Curettage completed [facility] 11/28/2023 16:07:07 Imaging Results None recorded. Procedure Notes None recorded. Medical Equipment None Reported. Allergies No known drug allergies Medications Name Sig Start Date Stop Date Status Note LastModified by Organization Details LastModified Time Mirena 21 mcg/24 hr (up to 8 years) 52 mg intrauter ine device active Prescrib ed Elsewher e: Yes Loca tion: [facility] M odify By: [email or web address] trick En counter DateTime : 02/10/20 13 10:30:00 AM Not Available Not Available Not Available hydrocodo ne 5 mg-acetam inophen 325 mg tablet TAKE 1 TO 2 TABLETS BY MOUTH EVERY 6 HOURS NEEDED FOR PAIN active Not Available Not Available No t Available Flagyl 500 mg tablet take 1 tablet (500MG) by oral route every 12 hours for 10 days 03/12 completed Prescrib ed Elsewher e: No Locat ion: [facility] odify By: [email or web address] trick En counter DateTime : 03/08/19 02:52:07 PM Not Available Not Available Not Available methylpre dnisolone 8 mg tablet 12/06 completed Not Available Not Available Not Available oseltamiv ir 75 mg capsule 12/06 completed Not Available Not Available Not Available triamcino lone acetonide 0.1 % topical ointment active Not Available Not Available Not Available nystatin 100,000 unit/gram topical cream active Not Available Not Available Not Available prednison e 50 mg tablet TAKE 1 TABLET BY MOUTH DAILY 12/06 completed Not Available Not Available Not Available Clindagel 1 % topical gel, once daily apply by topical route every day a thin layer to the affected area(s) 03/08 completed Prescrib ed Elsewher e: No Locat ion: [facility] odify By: [email or web address] Encount er DateTime : 02/10/20 13 10:30:00 AM Not Available Not Available Not Available hydrochlo rothiazid e 25 mg tablet TAKE 1 TABLET BY MOUTH EVERY DAY IN THE MORNING active Not Available Not Available No t Available amoxicill in 875 mg-potass ium clavulana te 125 mg tablet 12/06 completed Not Available Not Available Not Available Trulicity 1.5 mg/0.5 mL subcutane ous pen injector 12/06 completed Not Available Not Available Not Available Trulicity 0.75 mg/0.5 mL subcutane ous pen injector 12/06 completed Not Available Not Available Not Available Trulicity 3 mg/0.5 mL subcutane ous pen injector 12/06 completed Not Available Not Available Not Available Trulicity 4.5 mg/0.5 mL subcutane ous pen injector 12/06 completed Not Available Not Available Not Available Vitals Date Recorded Body height Body mass index (BMI) Body weight Systolic blood pressure Diastolic blood pressure Provider Name and Address Organization Details Last Updated DateTime 12/13/2023 172.72 cm 38.9 kg/m2 069559.6 5 g 126 mm[Hg] 86 mm[Hg] Hiwot Kenyon [facility] 09:35:00 Social History Question Answer Notes LastModified by Organizat ion Details LastModified Time Tobacco Smoking Status Never Smoker Ofelia Snyder adria, [facility] 12/07/2023 12:05:33 What Is Your Level Of Alcohol Consumption? Occasional Information not available 12/07/2023 Are You Blind Or Do You Have Difficulty Seeing? No Information n ot available 12/07/2023 What Is Your Level Of Caffeine Consumption? None Information not available 12/07/2023 How Much Tobacco Do You Chew? None Information not available 12/07/2023 In The 14 Days Before Symptom Onset, Have You Had Close Contact With A Laboratory-confirm ed COVID-19 While That Case Was Ill? No Information n ot available 12/07/2023 In The 14 Days Before Symptom Onset, Have You Had Close Contact With A Person Who Is Under Investigation For COVID-19 While That Person Was Ill? No Information not available 12/07/2023 Have You Been To An Area Known To Be High Risk For COVID-19? No Information not available 12/07/2023 Are You Deaf Or Do You Have Serious Difficulty Hearing? No Information not available 12/07/2023 What Is The Highest Grade Or Level Of School You Have Completed Or The Highest Degree You Have Received? 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 No Information not available 12/07/2023 Do You Feel Stressed (tense, Restless, Nervous, Or Anxious, Or Unable To Sleep At Night)? [id number] Information not available 12/07/2023 Do You Use Any Illicit Or Recreational Drugs? No Information not available 12/07/2023 Have You Used IV Drugs? No Information not available 12/07/2023 Sex: Female Functional Status Question Answer Note LastModified by Organizat ion Details LastModified Time Do you have difficulty walking or climbing stairs? No Information not available 12/07/2023 Are you able to walk? YESWOREST Information not available 12/07/2023 Are you able to care for yourself? Yes Information not available 12/07/2023 Do you have difficulty dressing or bathing? No Information not available 12/07/2023 What is your exercise level? Moderate Information not available 12/07/2023 Mental Status None recorded. Family History Relationship Description Onset Age of this Age Resolved Age Notes LastModified by Organization Details LastModified Time Mother Diabetes mellitus [email or web address] Not available 11/27 15:01:54 Mother Malignant tumor of cervix [email or web address] Not available 11/27 15:02:07 Father Diabetes mellitus [email or web address] Not available 11/27 15:01:54 Sister Diabetes mellitus [email or web address] Not available 11/27 15:01:54 Brother Diabetes mellitus [email or web address] Not available 11/27 15:01:55 Maternal Grandmother Diabetes mellitus Not available 11/27 15:01:55 Paternal Grandmother Diabetes mellitus [email or web address] Not available 11/27 15:01:55 Paternal Grandmother Malignant tumor of lung [email or web address] Not available 11/27 15:02:32 Maternal Grandfather Diabetes mellitus Not available 11/27 15:02:52 Paternal Grandfather Diabetes mellitus [email or web address] Not available 11/27 15:03:00 Medical History Condition Response Allergies (Food, seasonal, environmental ) N Other N Breast Cancer N Drug/Latex Allergies/Reactions N Blood Transfusion N Dermatologic Disorders N Lung Disease N Defects or Inherited Disease N Breast Problem N Gestational Diabetes N Hematologic disorders N Anesthesia Complications N History of STI N Deep Vein Thrombosis N Polycystic ovary syndrome N Anxiety Disorder N Autoimmune disease N Arthritis N Infertility N Polyps N Acid Reflux (GERD) N History of abnormal pap N Cancer N Stroke N Varicosities N Neurologic/Epilepsy N Endometriosis N High Cholesterol N Headaches N Fibromyalgia N Kidney Disease N Heart Problems N Kidney or Bladder Problems N Thyroid Problems N GI Problems N Eating Disorder N Anemia N Art (IVF or FET) N Psychiatric Illness N Ovarian Cancer N Diabetes N Pulmonary (TB, Asthma) N Hepatitis/Liver Disease N No Past Medical History N Eczema N Urinary Tract Infection N Abuse/Domestic Violence N Asthma N Trauma/Violence N Depression/ depression N Heart Disease N Pre-Eclampsia N Hypertension N Osteoporosis N Thrombophilias N Gynecological History Statement/Question Response Date of Last Mammogram Flow Heavy Date of LMP 01/31/2024 Was last menstrual period normal N STIs/STDs N HPV Vaccine N Colposcopy 10/12/2007 Duration of Flow (days) Current Control Method IUD Date of Last Colonoscopy Sexually Active? N Menses Monthly Y Date of DEXA bone scan Age of first menstrual cycle 11 Date of Last Pap Smear 04/01/2022 Sexual Problems? N Desired Control Method Hysterectom y LMP Definite Obstetrics History GPAL:G 3 P 2 0 1 2 Type Value Full Term 2 Living 2 Ectopics 1 Total 3 Past Encounters Encounter ID Performer Location Encounter Start Date Encounter Closed Date Diagnosis/Indication Diagnosis SNOMED-CT Code Diagnosis ICD10 Code [id number] Josse Gillespie MD [place] [address],[facility] [address] 12/07/2023 11:45:14 12/07/2023 12:55:02 Menorrhagia 827240938 N92.0 [id number] [facility] [address],[facility] [address] 12/08/2023 09:28:38 12/08/2023 09:52:58 Menorrhagia 322692793 N92.0 [id number] Josse Gillespie MD [place] [address],[place] [address] 12/13/2023 09:31:22 12/13/2023 12:40:55 Menorrhagia 170966139 N92.0 Family his tory of malignant neoplasm of ovary 743621432 Z80.41 Health Concerns Section Related Observation LastModified by Organization Detai ls LastModified Time None Recorded Concern Status LastModified by Organization Details LastModified Time None Recorded Payers Encounter Date Sequence Insurance Name Policy Number Policy Astorga Covered Member ID Astorga Member ID Guarantor Name 12/13/2023 1 [facility] (MEDICAID HMO) [id number] Jaja Parry [id number] Jaja Parry Notes Date Note Type Note Provider Name and Address Organization Details Recorded Time 12/13/2023 text/html This patient is a 43-year-old female presents for heavy vaginal bleeding. She has longstanding very heavy bleeding. Her menses are regular. However, they require double protection. Patient has accidents, getting blood on her bedding and clothing. Is affected work. She changes a pad or tampon every hour. She leaks blood around the pad and tampon. This bleeding has a profound impact on her quality of life and her activities of daily living. we reviewed her ultrasound results. The ultrasound is normal. We discussed treatment in detail. I spent over 40 minutes on the patient's care. We made a decision to perform surgery today. We discussed the procedure in detail. We discussed all the medical alternatives. We discussed those in detail including the risks, benefits, and alternatives. She has a strong family history of ovarian cancer. We agreed to robotic assisted hysterectomy with bilateral salpingo-oophorect avis. The patient understands the procedure. The procedure was described to the patient in great detail. the patient also understands the risks. The risks were also explained in detail. She understands that injuries May occur during surgery. She understands these injuries can result in hospitalization, more surgery, and severe illness. She understands there is risk of hemorrhage and infection. Josse Gillespie MD [address], [place], [address], [place] [facility] 12/13/2023 12:34:48 OBGyn Episode No OBEpisode recorded.
--- OUTSIDE RECORDS SUMMARY | 2024-02-27 09:52 | XMS_ITS | Continuity of Care Document ---
Author Organization [facility] [place] Address [address] [place] [address] Care Team Providers Care Business Banking Officer Name Role Phone RICCO PRESTONSEY Primary Care Provider Assessment No assessment recorded. Plan of Treatment Reminders Order Date Submit Date Provider Last Modified By Organization Details Last Modified Time Details Appointments None record ed. Lab None record ed. Referral None record ed. Procedures None record ed. Surgeries None record ed. Imaging None record ed. Medication Orders None record ed. Patient TargetsNo targets recorded. Patient InstructionsNo instructions recorded. Reason for Referral None Reported. Results Created Date Observation Date Name Description Value Unit Range Abnormal Flag Note LastModifiedBy Organization Detail LastModifiedTime 12/08/1912/08/2023 US, migdalia s No observ ation record ed. [email or web address] [place] [address], [place], [address], 12/08/2023 10:29:38 12/08/1912/08/2023 US, trans vagin al No observ ation record ed. [email or web address] [place] [address], [place], [address], 12/08/2023 10:29:48 12/08/1912/08/2023 US, huevi s No observ ation record ed. [email or web address] [address], [place], [address], 12/08/2023 22:24:30 Result Notes None recorded. Problems Name Problem SNOMED Code Status Onset Date Resolution Date Notes Provider Name and Address Organization Details Recorded Time Removal of intrauter ine device Active 2012 REMOVAL OF IUD;Record ed Elsewhere: No Locatio n: [facility]: EHR Chroni c: N Practice ID: 0001 Billa ble Time: 03:30:00 PM [facility] 0 16:09:36 Insertion of intrauter ine contracep tive device Active 2012 INSERTION OF IUD;Record ed Elsewhere: No Locatio n: [facility]: EHR Chroni c: N Practice ID: 0001 Billa ble Time: 10:30:00 AM Not Available [facility] 0 16:09:36 Uses IUD (intraute rine device) contracep tion [id number] Active 2013 Surveillan ce of intrauteri ne contracept torsten device;Rec orded Elsewhere: No Locatio n: [facility]: EHR Chroni c: N Practice ID: 0001 Billa ble Time: 04:00:00 PM Not Available [facility] 0 16:09:36 Screening for malignant neoplasm of cervix Active 2012 Screening for malignant neoplasms of the cervix;Rec orded Elsewhere: No Locatio n: [facility]: EHR Chroni c: N Practice ID: 0001 Billa ble Time: 09:00:00 AM Not Available [facility] 0 16:09:36 Specializ ed medical examinati on Active 2012 Gynecologi isela Examinatio n;Recorded Elsewhere: No Locatio n: [facility]: EHR Chroni c: N Practice ID: 0001 Billa ble Time: 09:00:00 AM Not Available [facility] 0 16:09:36 test negative 261465214 Active 2012 examinatio n or test, negative result;Rec orded Elsewhere: No Locatio n: [facility]: EHR Chroni c: N Practice ID: 0001 Billa ble Time: 10:30:00 AM Not Available [facility] 0 16:09:36 Problem Notes None recorded. Procedures Surgical History Date Name Laterality Status Provider Name and Address Organization Details Recorded Time 02/24/20 24 ROBOTIC ASSISTED HYSTERECTOMY W/BILATERAL SALPINGO-OOPHORECT TYLER (SURG) completed Jacquelin Thomson [facility] 02/24/2024 12:06:20 04/01/19 23 Date of Last Pap Smear completed [facility] 11/28/2023 14:54:49 02/28/19 21 cholecystectomy completed [facility] 11/28/2023 16:10:10 10/20/19 08 Dilation and Curettage completed [facility] 11/28/2023 16:09:48 10/12/19 08 Colposcopy completed [facility] 11/28/2023 16:12:36 10/12/19 08 LEEP completed [facility] 11/28/2023 16:10:55 08/29/19 08 Colposcopy completed [facility] 11/28/2023 16:11:08 02/28/19 06 Dilation and Curettage completed [facility] 11/28/2023 16:09:09 02/28/19 05 Dilation and Curettage completed [facility] 11/28/2023 16:09:31 02/28/19 04 Dilation and Curettage completed [facility] 11/28/2023 16:08:51 12/14/19 02 section completed [facility] 11/28/2023 16:11:50 02/28/19 02 Dilation and Curettage completed [facility] 11/28/2023 16:08:39 02/28/19 01 Dilation and Curettage completed [facility] 11/28/2023 16:07:47 02/28/19 00 Dilation and Curettage completed [facility] 11/28/2023 16:07:42 02/28/19 00 Laparoscopy completed [facility] 11/28/2023 16:10:40 02/28/18 98 Dilation and Curettage completed [facility] 11/28/2023 16:07:26 02/28/18 97 Dilation and Curettage completed [facility] 11/28/2023 16:08:04 02/28/18 96 Dilation and Curettage completed [facility] 11/28/2023 16:08:01 02/28/18 95 Dilation and Curettage completed [facility] 11/28/2023 16:08:27 02/28/18 94 Dilation and Curettage completed [facility] 11/28/2023 16:07:07 Imaging Results None recorded. Procedure Notes None recorded. Medical Equipment None Reported. Allergies No known drug allergies Medications Name Sig Start Date Stop Date Status Note LastModified by Organization Details LastModified Time Mirena 21 mcg/24 hr (up to 8 years) 52 mg intrauter ine device active Prescrib ed Elsewher e: Yes [facility] M odify By: [email or web address] trick En counter [...] Prescrib ed Elsewher e: No Locat ion: [facility] odify By: [email or web address] trick En counter DateTime : 03/08/19 14 02:52:07 PM Not Available Not Available Not [...] Prescrib ed Elsewher e: No Locat ion: [facility] odify By: [email or web address] Encount er DateTime : [...] Available Not Available Vitals Date Recorded Body weight Body mass index (BMI) Body height Systolic blood pressure Diastolic blood pressure Provider Name and Address Organization Details Last Updated DateTime 12/07/2023 310387.5 8 g 39.5 kg/m2 172.72 cm 115 mm[Hg] 80 mm[Hg] [facility] 12:03:11 Social History Question Answer Notes LastModified by Organizat ion Details LastModified Time Tobacco Smoking Status Never Smoker Ofelia Snyder adria [facility] 12/07/2023 12:05:33 What Is Your [...] Or The Highest Degree You Have Received? 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 No Information not available 12/07/2023 Do You Feel Stressed (tense, Restless, Nervous, Or Anxious, Or Unable To Sleep At Night)? [id number] Information not available 12/07/2023 Do You Use [...] Organization Details LastModified Time Mother Diabetes mellitus [email or web address] Not available 11/27 15:01:54 Mother Malignant tumor of cervix [email or web address] Not available 11/27 15:02:07 Father Diabetes mellitus [email or web address] Not available 11/27 15:01:54 Sister Diabetes mellitus [email or web address] Not available 11/27 15:01:54 Brother Diabetes mellitus [email or web address] Not available 11/27 15:01:55 Maternal Grandmother Diabetes mellitus [email or web address] Not available 11/27 15:01:55 Paternal Grandmother Diabetes mellitus [email or web address] Not available 11/27 15:01:55 Paternal Grandmother Malignant tumor of lung Not available 11/27 15:02:32 Maternal Grandfather Diabetes mellitus [email or web address] Not available 11/27 15:02:52 Paternal Grandfather Diabetes mellitus [email or web address] Not available 11/27 15:03:00 Medical History Condition [...] Diagnosis/Indication Diagnosis SNOMED-CT Code Diagnosis ICD10 Code [id number] Josse Gillespie MD [place] [address] [address] 12/07/2023 11:45:14 12/07/2023 12:55:02 Menorrhagia 500469711 N92.0 Health Concerns Section Related Observation LastModified by Organization Detai ls LastModified Time None Recorded Concern Status LastModified by Organization Details LastModified Time None Recorded Payers Encounter Date Sequence Insurance Name Policy Number Policy Astorga Covered Member ID Astorga Member ID Guarantor Name 12/07/2023 1 [facility] (MEDICAID HMO) [id number] Jaja Parry [id number] Jaja Parry Notes Date Note Type Note Provider Name and Address Organization Details Recorded Time 12/07/2023 text/html This patient is a 43-year-old female [...] life and her activities of daily living. patient has failed treatment with Mirena IUD. Patient would like definitive treatment. We talked about various treatment options. Not a good candidate for hormone /estrogen containing treatment. Discussed endometrial ablation. Showed her the endometrial ablation video. Discussed risks, benefits, and alternatives. Discussed hysterectomy. Discussed risks, benefits, and alternatives. She will will obtain pelvic ultrasound and we will consider ablation versus hysterectomy. Spent over 30 minutes on her care. Josse Gillespie MD [address], [place], [address], [place] [facility] 12/07/2023 12:54:55 OBGyn Episode No OBEpisode recorded.
--- OUTSIDE RECORDS SUMMARY | 2024-02-27 09:52 | XMS_ITS | Data Portability ---
Author Organization [employer], Main Office Address [address] [place] [address] Assessment Encounter Date Assessment Date Assessment LastModified by Organization Details LastModified Time 09/07/2023 09/07/2023 P eyad Not available 11/2023 14:32:51 09/14/2023 09/14/2023 Pt to RTC one wk for possible BK casting. eyad Not available 09/14/2023 12:29:05 Plan of Treatment Reminders Order Date Submit Date Provider Last Modified By Organization Details Last Modified Time Details Appointments None recorded. Lab None recorded. Referral None recorded. Procedures None recorded. Surgeries None recorded. Imaging None recorded. Medication Orders methylpre dnisolone 8 mg tablet 2023 024 [id number], [address], [place], [place], [id number], 4 12:46:04 Patient TargetsNo targets recorded. Patient Instructions Encounter Date Encounter Id Patient Instructions Last Modified By Organization Details Last Modified Time 09/21/2023 [id number] application of cast, short leg cast* CATHERINE Not available 09/29/2023 04:27:01 Reason for Referral None Reported. Problems Name Problem SNOMED Code Status Onset Date Resolution Date Notes Provider Name and Address Organization Details Recorded Time Plantar fasciitis of right foot 9339484026695 9101 Active 2023 ANNA MARIE Alvarez, [employer] 15:49:57 Pain in right foot 0638302999695 07 Active 2023 Spike Navas DPM [address] [facility], [facility] [address], [place], [address], [employer] [facility] [employer] 4 16:20:12 Edema of lower extremity 729446379 Active 2023 Spike Navas DPM [address], [place], [address], [employer] [facility] 4 16:20:18 Leg length inequality 96521090 Active 2023 Spike Navas DPM [address], [address], [place], [address], [employer] [facility] 4 16:21:06 Plantar fasciitis 065024057 Active 2023 ANNA MARIE Alvarez, [place] [employer] [facility] 4 10:40:55 Edema 859481900 Active 2023 Spike Navas DPM [address], [address], [place], [address], [employer] [facility] 4 12:27:46 Problem Notes None recorded. Procedures Surgical History Date Name Laterality Status Provider Name and Address Organization Details Recorded Time 10/06/19 Unna boot - LE edema completed Spike Navas DPM [address], [address], [place], [address], [employer] [facility] 10/07/2023 09:20:24 09/28/19 24 Unna boot - LE edema completed Spike Navas DPM [address], [address], [place], [address], [employer] [facility] 09/28/2023 12:27:34 09/21/19 24 Trigger Point Injection completed Spike Navas DPM [address], [place], [address], [employer] [facility] [employer] [facility] 09/22/2023 08:43:43 09/14/19 24 Corticosteroid Injection completed Spike Navas DPM [address], [place], [address], [facility] [employer] 09/14/2023 12:28:46 09/14/19 24 Strapping Foot & Ankle completed Spike Navas DPM [address], [address], [place], [address], [facility] [employer] [facility] 09/14/2023 12:28:06 09/07/19 24 Trigger Point Injection completed Spike Navas DPM [address], [place], [address], [facility] [employer] [facility] 09/07/2023 14:32:22 09/07/19 24 Strapping Foot & Ankle completed Spike Navas DPM [address], [address], [place], [address], [facility] [employer] [facility] 09/07/2023 14:32:40 07/20/19 24 Trigger Point Injection completed Spike Navas DPM [address], [address], [place], [address], [facility] [employer] [facility] 07/20/2023 09:26:00 07/20/19 24 Unna boot - LE edema completed Spike Navas DPM [address], [address], [place], [address], [facility] [employer] [facility] 07/20/2023 09:26:07 07/11/19 24 Trigger Point Injection completed Spike Navas DPM [address], [place], [address], [facility] [employer] [facility] 07/11/2023 16:19:47 07/11/19 24 Unna boot - LE edema completed Spike Navas DPM [address], [place], [address], [facility] [employer] [facility] 07/11/2023 16:20:08 Imaging Results None recorded. Procedure Notes None recorded. Medical Equipment None Reported. Allergies No known drug allergies Medications Name Sig Start Date Stop Date Status Note LastModified by Organization Details LastModified Time fluconazole 150 mg tablet active Not Available Not Available No t Available metronidazole 500 mg tablet active Not Available Not Availabl e Not Available methylprednisolo ne 8 mg tablet TAKE 1 TABLET BY MOUTH THREE TIMES DAILY active Not Available Not Available No t Available oseltamivir 75 mg capsule active Not Available Not Available N ot Available lidocaine 5 % topical patch active Not Available Not Availabl e Not Available hydrochlorothiaz mansoor 25 mg tablet active Not Available Not Avail able Not Available gabapentin 100 mg capsule active Not Available Not Available N ot Available methylprednisolo ne 4 mg tablets in a dose pack active Not Available Not Availab le Not Available amitriptyline 100 mg tablet active Not Available Not Availabl e Not Available amoxicillin 875 mg-potassium clavulanate 125 mg tablet active Not Available Not Available No t Available nitrofurantoin monohydrate/macr ocrystals 100 mg capsule active Not Available Not Available Not Available Trulicity 1.5 mg/0.5 mL subcutaneous pen injector active Not Available Not Available Not Available Trulicity 0.75 mg/0.5 mL subcutaneous pen injector active Not Available Not Available Not Available Trulicity 3 mg/0.5 mL subcutaneous pen injector active Not Available Not Available Not Available Trulicity 4.5 mg/0.5 mL subcutaneous pen injector active Not Available Not Available Not Available Vitals Date Recorded Body height Body mass index (BMI) Body weight Oxygen saturation Oxygen saturation in Arterial blood by Pulse oximetry Body temperature Heart rate Provider Name and Address Organization Details Last Updated DateTime 4 172.72 cm 39.8 kg/m2 553578. 2 g 99 % 99 % 98.2 [degF] 77 /min Elías Toth, [facility] 4 10:34:40 Date Recorded Body height Body mass index (BMI) Body weight Oxygen saturation Oxygen saturation in Arterial blood by Pulse oximetry Body temperature Heart rate Provider Name and Address Organization Details Last Updated DateTime 4 172.72 cm 39.8 kg/m2 879814. 2 g 98 % 98 % 98.6 [degF] 70 /min Elías Toth [facility] 4 12:04:35 Date Recorded Body height Body mass index (BMI) Body weight Oxygen saturation Oxygen saturation in Arterial blood by Pulse oximetry Body temperature Heart rate Provider Name and Address Organization Details Last Updated DateTime 4 172.72 cm 39.8 kg/m2 118024. 2 g 98 % 98 % 98.2 [degF] 66 /min ANNA MARIE Alvarez [facility] [employer] [facility] 4 12:04:37 Date Recorded Body height Body mass index (BMI) Body weight Oxygen saturation Oxygen saturation in Arterial blood by Pulse oximetry Body temperature Heart rate Provider Name and Address Organization Details Last Updated DateTime 4 172.72 cm 39.8 kg/m2 272534. 2 g 98 % 98 % 98.2 [degF] 70 /min ANNA MARIE Alvarez [facility] [employer] [facility] 4 11:40:22 Date Recorded Body height Body mass index (BMI) Body weight Oxygen saturation Oxygen saturation in Arterial blood by Pulse oximetry Body temperature Heart rate Provider Name and Address Organization Details Last Updated DateTime 4 172.72 cm 39.8 kg/m2 551047. 2 g 96 % 96 % 98.4 [degF] 77 /min ANNA MARIE Alvarez [facility] [employer] [facility] 4 16:01:00 Social History Question Answer Notes LastModified by [employer] ion Details LastModified Time Tobacco Smoking Status Never Smoker ANNA MARIE Alvarez [facility] [employer] [facility] 07/11/2023 15:40:48 What Is Your Level Of Alcohol Consumption? Occasional [email or web address] Information not available 07/11/2023 What Is Your Level Of Caffeine Consumption? Moderate [email or web address] Information not available 07/11/2023 What Was The Date Of Your Most Recent Tobacco Screening? 10/06/2023 Information not available 10/06/2023 Do You Use Any Illicit Or Recreational Drugs? No [email or web address] Information not available 07/11/2023 Sex: Unknown Functional Status None recorded. Mental Status None recorded. Family History Relationship Description Onset Age of this Age Resolved Age Notes LastModified by Organization Details LastModified Time Father Diabetes mellitus [email or web address] Not available 2023 15:39:08 Father Hypertensive disorder [email or web address] Not available 2023 15:39:34 Mother Diabetes mellitus [email or web address] Not available 2023 15:39:08 Mother Hypertensive disorder [email or web address] Not available 2023 15:39:34 Maternal Grandmother Hypertensive disorder [email or web address] Not available 2023 15:39:34 Paternal Grandmother Malignant neoplastic disease [email or web address] Not available 2023 15:39:56 Medical History Condition Response HEADACHES/MIGRAINES Y Gynecological HistoryNo gynecological history recorded. Obstetrics History GPAL:G 0 P 0 0 0 0 Past Encounters Encounter ID Performer Location Encounter Start Date Encounter Closed Date Diagnosis/Indication Diagnosis SNOMED-CT Code Diagnosis ICD10 Code [id number] Spike Navas DPM [facility] [place] [address] [address] 07/11/2023 15:17:13 10/04/2023 17:50:53 Plantar fasciitis of right foot 7586926225 2180150 M72.2 Pain in right foot 50952 85439 03053 M79.671 Edema of l ower extremity 705009359 R60.0 Leg length inequality 45 664896 M21.70 [id number] Spike Navas D[place] [facility] [place] [address] [address] 07/20/2023 09:05:50 07/20/2023 09:53:32 Pain in right foot 5175189847 52315 M79.671 Edema of l ower extremity 425502633 R60.0 Plantar fa sciitis of right foot 7276232856 5444398 M72.2 Leg length inequality 45 390449 M21.70 [id number] Spike Navas DPM [facility] [place] [address] [address] 09/07/2023 10:19:16 09/07/2023 14:45:41 Plantar fasciitis 288089503 M72.2 Pain in right foot 04237 81908 42781 M79.190 [id number] Spike Navas DPM [facility] [place] [address] [address] 09/14/2023 12:01:15 09/14/2023 12:35:34 [id number] Spike Navas DPM [facility] [place] [address] [address] [address] 09/21/2023 11:54:24 09/22/2023 10:15:08 Pain in right foot 7121345607 66750 M79.671 Edema of l ower extremity 909989380 R60.0 [id number] Spike Navas DPM [facility] [place] [address] [address] [address] 09/28/2023 11:32:25 09/28/2023 12:52:52 Pain in right foot 1879965745 30844 M79.671 Edema 276698835 R60.9 Edema of l ower extremity 420845901 R60.0 [id number] Spike Navas DPM [facility] [place] [address] [address] 10/06/2023 15:56:09 11/28/2023 16:38:07 Pain in right foot 4840653931 94415 M79.671 Edema of l ower extremity 885704501 R60.0 Health Concerns Section Related Observation LastModified by Organization Detai ls LastModified Time None Recorded Concern Status LastModified by Organization Details LastModified Time None Recorded Advance Directives Directive None Recorded Payers Encounter Date Sequence Insurance Name Policy Number Policy Astorga Covered Member ID Astorga Member ID Guarantor Name 09/07/2023 1 [facility] [id number] Jaja Parry [id number] Jaja Parry 09/14/2023 1 [facility] (MEDICAID HMO) [id number] Jaja Parry [id number] Jaja Parry 09/21/2023 1 [facility] (MEDICAID HMO) [id number] Jaja Parry [id number] Jaja Parry 09/28/2023 1 [facility] (MEDICAID HMO) [id number] 0003 Jaja Parry [id number] Jaja Parry 10/06/2023 1 [facility] (MEDICAID HMO) [id number] 0003 Jaja Parry [id number] Jaja Parry Notes Date Note Type Note Provider Name and Address Organization Details Recorded Time 09/07/2023 text/html 30 % improved at this time, Rt foot, PFitis. Rx and previous injections helpful, but pt is undergoing weight loss regimen and WB and walking excessively to lose weight. Pain has recurred. Spike Navas DPM [address], [address], [place], [address], [employer] 09/07/2023 14:32:55 09/14/2023 text/html Persistent heel pain, Rt foot. Unrelieved by injections and steroids oral. Spike Navas DPM [address], [place], [address], [employer] 09/14/2023 12:29:09 09/21/2023 text/html Pt RTC for sever PFitis, heel spur, Rt foot. Unrelieved by oral meds, taping and support, injections. Spike Navas DPM [address], [place], [address], [employer] 09/22/2023 09:02:20 09/28/2023 text/html Pt RTC for c/o pain and edema, Rt leg. BK cast applied last visit. Pt stepped on a nail which pierced the cast and caused significant pain. Pt RT urgent care, where the BK cast was removed. Pt RTC this date w/o any area of ulceration or infection from the trauma. Her pain is mildly improved. Spike Navas DPM [address], [place], [address], [email or web address] [facility] 09/28/2023 12:28:07 10/06/2023 text/html Pt RTC in low profile walker. States that she still has pain during ambulation, 30% improved since pain was at its worst. Pt was instructed on proper application of the device (too loose as worn). Spike Navas DPM [address], [place], [address], [place] [facility] 10/07/2023 09:20:43 OBGyn Episode No OBEpisode recorded.
--- OUTSIDE RECORDS SUMMARY | 2024-02-27 09:52 | XMS_ITS | Continuity of Care Document ---
Author Organization [facility] [place] Address [address] [place] [place] [address] Care Team Providers Care Lead Carpenter Name Role Phone KALYANI PRESTON Primary Care Provider Assessment No assessment recorded. Plan of Treatment Reminders Order Date Submit Date Provider Last Modified By Organization Details Last Modified Time Details Appointments None recorded. Lab None recorded. Referral None recorded. Procedures None recorded. Surgeries None recorded. Imaging US, pelvis 2023 [place] [address] [address], [address], [place], [address], 14:34:58 [email or web address] [place] [facility] [address], [place], [address], 14:34:58 Medication Orders None recorded. Patient TargetsNo targets recorded. Patient InstructionsNo instructions recorded. Reason for Referral None Reported. Results Created Date Observation Date Name Description Value Unit Range Abnormal Flag Note LastModifiedBy Organization Detail LastModifiedTime 12/08/1912/08/2023 US, pelvi s No observ ation record ed. [email or web address] [place] [address], [place], [address], 12/08/2023 10:29:38 12/08/1912/08/2023 US, trans vagin al No observ ation record ed. [email or web address] [place] [address], [place], [address], 12/08/2023 10:29:48 12/08/19 24 12/08/2023 US, migdalia s No observ ation record ed. [email or web address] [address], [place], [address], 12/08/2023 22:24:30 Result Notes None recorded. Problems Name Problem SNOMED Code Status Onset Date Resolution Date Notes Provider Name and Address Organization Details Recorded Time Removal of intrauter ine device Active 2012 REMOVAL OF IUD;Record ed Elsewhere: No Locatio n: [facility] rce: EHR Chroni c: N Practice ID: 0001 Billa ble Time: 03:30:00 PM Not Available [facility] 0 16:09:36 Insertion of intrauter ine contracep tive device Active 2012 INSERTION OF IUD;Record ed Elsewhere: No Locatio n: [facility] rce: EHR Chroni c: N Practice ID: 0001 Billa ble Time: 10:30:00 AM Not Available [facility] 0 16:09:36 Uses IUD (intraute rine device) contracep tion [id number] Active 2013 Surveillan ce of intrauteri ne contracept torsten device;Rec orded Elsewhere: No Locatio n: [facility] rce: EHR Chroni c: N Practice ID: 0001 Billa ble Time: 04:00:00 PM Not Available [facility] 0 16:09:36 Screening for malignant neoplasm of cervix Active 2012 Screening for malignant neoplasms of the cervix;Rec orded Elsewhere: No Locatio n: [facility] rce: EHR Chroni c: N Practice ID: 0001 Billa ble Time: 09:00:00 AM Not Available [facility] 0 16:09:36 Specializ ed medical examinati on Active 2012 Gynecologi isela Examinatio n;Recorded Elsewhere: No Locatio n: [facility] rce: EHR Chroni c: N Practice ID: 0001 Billa ble Time: 09:00:00 AM Not Available [facility] 0 16:09:36 test negative [id number] Active 2012 examinatio n or test, negative result;Rec orded Elsewhere: No Locatio n: [facility] rce: EHR Chroni c: N Practice ID: 0001 Billa ble Time: 10:30:00 AM Not Available [facility] 0 16:09:36 Problem Notes None recorded. Procedures Surgical History Date Name Laterality Status Provider Name and Address Organization Details Recorded Time 02/24/20 24 ROBOTIC ASSISTED HYSTERECTOMY W/BILATERAL SALPINGO-OOPHORECT TYLER (SURG) completed Jacquelin Thomson [facility] 02/24/2024 12:06:20 04/01/19 23 Date of [...] [facility] 11/28/2023 16:07:07 Imaging Results Imaging Date Name Status LastModified by Organization Details LastModified Time 12/08/2023 US, pelvis completed [email or web address] [address] [address], [place], [address], 12/08/2023 10:29:38 12/08/2023 US, transvaginal completed [email or web address] [facility] [address] [address], [place], [address], 12/08/2023 10:29:48 12/08/2023 US, pelvis completed [email or web address] [address], [place], [address], 12/08/2023 22:24:30 Procedure Notes None recorded. Medical Equipment None Reported. Allergies No known drug allergies Medications Name Sig Start Date Stop Date Status Note LastModified by Organization Details LastModified Time Mirena 21 mcg/24 hr (up to 8 years) 52 mg intrauter ine device active Prescrib ed Elsewher e: Yes Loca tion: [facility] odify By: [email or web address] trick En counter DateTime [...] Prescrib ed Elsewher e: No Locat ion: [facility] odify By: [email or web address] trick En counter DateTime [...] Prescrib ed Elsewher e: No Locat ion: [facility] M odify By: cmedical Encount er DateTime : [...] Not Available Not Available Not Available Vitals None Recorded Social History Question Answer Notes LastModified by Organizat ion Details LastModified Time Tobacco Smoking Status Never Smoker Ofelia Snyder [facility] 12/07/2023 12:05:33 What Is Your Level [...] Or The Highest Degree You Have Received? 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 No Information not available 12/07/2023 Do You Feel Stressed (tense, Restless, Nervous, Or Anxious, Or Unable To Sleep At Night)? [id number] Information not available 12/07/2023 Do You Use [...] Organization Details LastModified Time Mother Diabetes mellitus [email or web address] Not available 11/27 15:01:54 Mother Malignant tumor of cervix [email or web address] Not available 11/27 15:02:07 Father Diabetes mellitus [email or web address] Not available 11/27 15:01:54 Sister Diabetes mellitus [email or web address] Not available 11/27 15:01:54 Brother Diabetes mellitus [email or web address] Not available 11/27 15:01:55 Maternal Grandmother Diabetes mellitus Not available 11/27 15:01:55 Paternal Grandmother Diabetes mellitus [email or web address] Not available 11/27 15:01:55 Paternal Grandmother Malignant tumor of lung [email or web address] Not available 11/27 15:02:32 Maternal Grandfather Diabetes mellitus [email or web address] Not available 11/27 15:02:52 Paternal Grandfather Diabetes mellitus [email or web address] Not available 11/27 15:03:00 Medical History Condition [...] Diagnosis/Indication Diagnosis SNOMED-CT Code Diagnosis ICD10 Code [id number] Josse Gillespie MD [place] [address] [address] 12/07/2023 11:45:14 12/07/2023 12:55:02 Menorrhagia 932957194 N92.0 [id number] Odette De Leon [place] [address] [address] 12/08/2023 09:28:38 12/08/2023 09:52:58 Menorrhagia 910591951 N92.0 Health Concerns Section Related Observation LastModified by Organization Detai ls LastModified Time None Recorded Concern Status LastModified by Organization Details LastModified Time None Recorded Payers Encounter Date Sequence Insurance Name Policy Number Policy Astorga Covered Member ID Astorga Member ID Guarantor Name 12/08/2023 1 [facility] (MEDICAID HMO) [id number] Jaja Parry [id number] Jaja Parry OBGyn Episode No OBEpisode recorded.
--- OUTSIDE RECORDS SUMMARY | 2024-02-27 09:52 | XMS_ITS | Continuity of Care Document ---
Author Organization [facility] Address [address] [place] [address] Care Team Providers Care Reinsurance Accountant Name Role Phone KALYANI PRESTON Primary Care [...] instructions recorded. Reason for Referral None Reported. Problems Name Problem SNOMED Code Status Onset Date Resolution Date Notes Provider Name and Address Organization Details Recorded Time Removal of intrauter ine device Active 2012 REMOVAL OF IUD;Record ed Elsewhere: No Locatio n: [facility] rce: EHR Chroni c: N Practice ID: 0001 Billa ble Time: 03:30:00 PM Not Available [facility] 0 16:09:36 Insertion of intrauter ine contracep tive device Active 2012 INSERTION OF IUD;Record ed Elsewhere: No Locatio n: [facility] rce: EHR Chroni c: N Practice ID: 0001 Billa ble Time: 10:30:00 AM Not Available [facility] 0 16:09:36 Uses IUD (intraute rine device) contracep tion [id number] Active 2013 Surveillan ce of intrauteri ne contracept torsten device;Rec orded Elsewhere: No Locatio n: [facility] rce: EHR Chroni c: N Practice ID: 0001 Billa ble Time: 04:00:00 PM Not Available [facility] 0 16:09:36 Screening for malignant neoplasm of cervix Active 2012 Screening for malignant neoplasms of the cervix;Rec orded Elsewhere: No Locatio n: [facility] rce: EHR Chroni c: N Practice ID: 0001 Billa ble Time: 09:00:00 AM Not Available [facility] 0 16:09:36 Specializ ed medical examinati on Active 2012 Gynecologi isela Examinatio n;Recorded Elsewhere: No Locatio n: [facility] rce: EHR Chroni c: N Practice ID: 0001 Billa ble Time: 09:00:00 AM Not Available [facility] 0 16:09:36 test negative [id number] Active 2012 examinatio n or test, negative result;Rec orded Elsewhere: No Locatio n: [facility] rce: EHR Chroni c: N Practice ID: 0001 Billa ble Time: 10:30:00 AM Not Available [facility] 0 16:09:36 Problem Notes None recorded. Procedures Surgical History Date Name Laterality Status Provider Name and Address Organization Details Recorded Time 02/24/20 24 ROBOTIC ASSISTED HYSTERECTOMY W/BILATERAL SALPINGO-OOPHORECT TYLER (SURG) completed Jacquelin Thomson [facility] 02/24/2024 12:06:20 04/01/19 23 Date of Last Pap Smear completed Taniya Niño [facility] 11/28/2023 14:54:49 02/28/19 21 cholecystectomy completed Taniya Niño [facility] 11/28/2023 16:10:10 10/20/19 08 Dilation and Curettage completed Taniya Niño [facility] 11/28/2023 16:09:48 10/12/19 08 Colposcopy completed Taniya Niño [facility] 11/28/2023 16:12:36 10/12/19 08 LEEP completed [facility] 11/28/2023 16:10:55 08/29/19 08 Colposcopy completed [facility] 11/28/2023 16:11:08 02/28/19 06 Dilation and Curettage completed [facility] 11/28/2023 16:09:09 02/28/19 05 Dilation and Curettage completed [facility] 11/28/2023 16:09:31 02/28/19 04 Dilation and Curettage completed [facility] 11/28/2023 16:08:51 12/14/19 02 section completed [facility] 11/28/2023 16:11:50 02/28/19 02 Dilation and Curettage completed [facility] 11/28/2023 16:08:39 02/28/19 01 Dilation and Curettage completed [facility] 11/28/2023 16:07:47 02/28/19 00 Dilation and Curettage completed [facility] 11/28/2023 16:07:42 02/28/19 00 Laparoscopy completed [facility] 11/28/2023 16:10:40 02/28/18 98 Dilation and Curettage completed [facility] 11/28/2023 16:07:26 02/28/18 97 Dilation and Curettage completed [facility] 11/28/2023 16:08:04 02/28/18 96 Dilation and Curettage completed [facility] 11/28/2023 16:08:01 02/28/18 95 Dilation and Curettage completed Taniya Niño [facility] 11/28/2023 16:08:27 02/28/18 94 Dilation and Curettage completed Taniya Niño [facility] 11/28/2023 16:07:07 Imaging Results None recorded. Procedure Notes None recorded. Medical Equipment None Reported. Allergies No known drug allergies Medications Name Sig Start Date Stop Date Status Note LastModified by Organization Details LastModified Time Mirena 21 mcg/24 hr (up to 8 years) 52 mg intrauter ine device active Prescrib ed Elsewher e: Yes [facility] By: [email or web address] faulknerk En counter DateTime : 02/10/20 10:30:00 AM Not Available Not Available Not Available hydrocodo ne 5 mg-acetam inophen 325 mg tablet TAKE 1 TO 2 TABLETS BY MOUTH EVERY 6 HOURS NEEDED FOR PAIN active Not Available Not Available No t Available Flagyl 500 mg tablet take 1 tablet (500MG) by oral route every 12 hours for 10 days 03/12 completed Prescrib ed Elsewher e: No Locat ion: [facility] odify By: [email or web address] faulknerk En counter DateTime : 03/08/19 14 02:52:07 [...] Prescrib ed Elsewher e: No Locat ion: [facility] odify By: cmedical Encount er DateTime : [...] and Address Organization Details Last Updated DateTime 02/13/2024 172.72 cm 40.3 kg/m2 773033.9 8 g 144 mm[Hg] 96 mm[Hg] Hiwot Prescott [facility] 09:41:17 Social History Question Answer Notes LastModified by Organizat ion Details LastModified Time Tobacco Smoking Status Never Smoker Ofelia Snyder adria, [facility] 12/07/2023 12:05:33 What Is Your Level [...] Or The Highest Degree You Have Received? [id number] Information not available 12/07/2023 What Is Your Occupation? [employer] Information not available 12/07/2023 How Much Tobacco Do You Smoke? No Information not available 12/07/2023 Do You Feel Stressed (tense, Restless, Nervous, Or Anxious, Or Unable To Sleep At Night)? AE50088-3 Information not available 12/07/2023 Do You Use [...] Organization Details LastModified Time Mother Diabetes mellitus [email or web address] Not available 11/27 15:01:54 Mother Malignant tumor of cervix [email or web address] Not available 11/27 15:02:07 Father Diabetes mellitus Not available 11/27 15:01:54 Sister Diabetes mellitus [email or web address] Not available 11/27 15:01:54 Brother Diabetes mellitus [email or web address] Not available 11/27 15:01:55 Maternal Grandmother Diabetes mellitus [email or web address] Not available 11/27 15:01:55 Paternal Grandmother Diabetes mellitus [email or web address] Not available 11/27 15:01:55 Paternal Grandmother Malignant tumor of lung [email or web address] Not available 11/27 15:02:32 Maternal Grandfather Diabetes mellitus [email or web address] Not available 11/27 15:02:52 Paternal Grandfather Diabetes mellitus Not available 11/27 15:03:00 Medical History Condition [...] Diagnosis/Indication Diagnosis SNOMED-CT Code Diagnosis ICD10 Code [id number] Josse Gillespie MD [facility] [address] [address] 02/13/2024 09:29:03 02/14/2024 07:03:17 Menorrhagia 143064732 N92.0 Health Concerns Section Related Observation LastModified by Organization Detai ls LastModified Time None Recorded Concern Status LastModified by Organization Details LastModified Time None Recorded Payers Encounter Date Sequence Insurance Name Policy Number Policy Astorga Covered Member ID Astorga Member ID Guarantor Name 02/13/2024 1 [facility] (MEDICAID HMO) [id number] Jaja Parry [id number] Jaja Parry Notes Date Note Type Note Provider Name and Address Organization Details Recorded Time 02/13/2024 text/html this patient is a 43-year-old female with severe menorrhagia. We have agreed to perform robotic assisted hysterectomy with bilateral salpingo-oophorect tyler. The patient understands the procedure. The procedure was described to the patient in great detail. the patient also understands the risks. The risks were also explained in detail. She understands that injuries May occur during surgery. She understands these injuries can result in hospitalization, more surgery, and severe illness. She understands there is risk of hemorrhage and infection. Josse Gillespie MD [address], [place], [address], [place] [facility] 02/13/2024 21:10:33 OBGyn Episode No OBEpisode recorded.
== END 2024-02-20 07:46 | disposition home or self-care (01) ==
LOC: ANHSURGERY 07:48
PROVIDERS: Anesthesiology; PCP Physician Assistant; Visit Provider Obstetrics & Gynecology
DX: Z01.818 Encounter for other preprocedural examination (principal); N92.0 Excessive and frequent menstruation with regular cycle; I10 Essential (primary) hypertension; D64.9 Anemia, unspecified
CPT/HCPCS: 36415; 80053; 85014; 85018; 86850; 86900; 86901; 93005

== ENCOUNTER 2024-02-24 00:24 | Day surgery (SDC) | payer OTHER, SELFPAY ==
[2024-02-15 14:49] VITALS: BMI 40.2
--- NOTE | 2024-02-15 15:00 | PC.NURSE ---
Report to the Outpatient Waiting Room, entrance under the green pavilion located off [facility], at time 06:00am on date _02/24/24 . Planned Procedure Time: ___07:30am .? Time changes happen often and if your time is changed the preop area will call you the afternoon before. - You and your visitor will be asked to self-screen and do not enter if you have any COVID symptoms. Please call surgeon if you need to reschedule. - A mask is optional within the hospital at this time. Patients may have clear liquids (water, carbonated beverages, clear teas, apple juice) until 3 hours prior to surgery with a maximum of 20 ounces. - No food from midnight until time of surgery and no smoking. This includes no chewing gum, candy or mints. (0430) Take only the following medications with a SIP of water on the morning of surgery: _None DO NOT STOP ANY OF YOUR OTHER PRESCRIPTION MEDICATIONS PRIOR TO SURGERY EXCEPT THE FOLLOWING Medications to discontinue per physician None Date to take last dose None Please no make-up, nail tajik, hairspray, perfume, deodorant, or body powder the day of surgery.? No jewelry (including any body piercings) or valuables the day of surgery, leave them at home.? Please take a shower or bath the night before, or the morning of, surgery with an antibacterial soap.? Wear comfortable, loose fitting clothing.? - Jewelry must be removed prior to entering the operating room.? Rings and piercings that are not removed may be cut off. - The hospital will not accept responsibility for valuables.? - Please leave all valuables, including medications, at home the day of surgery. If you are going home after surgery, a licensed carrier driver must drive you home.? - NO public transportation without another adult if you receive anesthesia. - We recommend that an adult stay with you for 24 hours following discharge. - We also recommend that you do not drive, make important decision, drink alcoholic beverages, or take any drugs that were not prescribed by your health care provider for at least 24 hours after your discharge time. Follow any additional instructions given to you from your surgeon. Telephone instructions given to __Patient and asked if any additional questions and then verbalized understanding. Patient advised to call surgeon office or pre surgery nurse liaison [phone] if any additional questions.
[2024-02-24] VITALS (12 sets, daily range): BP systolic 126–160; BP diastolic 83–96; PULSE 74–92; RESP 12–18; TEMP 35.9–36.7; O2SAT 92–100
--- NOTE | 2024-02-24 05:38 | P.PNAN_ITS ---
Anes - Eval Pre Procedure Procedure: Operation Date: 02/24/24 07:30 Proposed Procedures p Robotic Assisted Hysterectomy with Bilateral Salpingo-oophorectomy - Josse Gillespie MD Date/Time: 02/24/24 05:38 Pre Op Diagnosis: Menorrhagia Patient Data Age: 43 Gender: F Height: 1.73 m Weight: 120 kg Allergies Allergy/AdvReac Type Severity Reaction Status Date / Time No Known Allergies Allergy Verified 12/04/23 16:09 Home Medications ?Medication ?Instructions ?Recorded ?Confirmed ?Type hydrochlorothiazide 25 mg tablet 25 mg PO DAILY 07/20/22 02/15/24 History Patient hx anesthesia problems: none Family hx anesthesia problems: none Results Review: All pre-operative results and documents have been reviewed as part of the pre- operative evaluation. [facility] Past Medical History Medical History (Updated 02/24/24 @ 05:39 by Brinda Neely CRNA) Morbid obesity HTN (hypertension) Hx of migraines Healthy female adult Surgical History Surgical History No history of previous surgery Family History Family History Mother Family history non-contributory Social History Social History Smoking status: Never smoker Alcohol use details: 1 Beer per month Substance use: never Living arrangements: with family Additional living arrangements comments: Son Gender identity (if verbalized by the patient): Female Sexual Orientation (if Verbalized by the Patient): Straight or Heterosexual Spiritual care concerns: No Exam Day of Procedure 02/24/24 05:38
[2024-02-24] MEDS: LACTATED RINGERS 1,000 ML 30 ML IV CONT ×2 (06:40→10:04)
[2024-02-24] MEDS: KETOROLAC 15 MG/ML VIAL (*BKC) IV PUSH (06:40)
[2024-02-24] MEDS: ACETAMINOPHEN 500 MG TABLET 1000 MG PO ×3 (06:40→18:45)
--- NOTE | 2024-02-24 07:15 | WPDHPUPDATE1 ---
History and Physical Update Update Date/Time: 02/24/24 07:15 History and Physical has been reviewed, including an updated exam of the patient. There are NO changes in the patient's condition. Risks, benefits, and alternatives have been discussed and questions answered. Patient agrees to proceed with procedure.
--- NOTE | 2024-02-24 07:22 | WPDANESEPPF ---
Anes - Initial Pre Proc Eval Procedure: Operation Date: 02/24/24 07:30 Proposed Procedures p Robotic Assisted Hysterectomy with Bilateral Salpingo-oophorectomy - Josse Gillespie MD Date/Time: 02/24/24 07:22 Surgeon: Josse Gillespie MD Pre Op Diagnosis: Menorrhagia Patient Data Age: 43 Gender: F Height: 1.73 m Weight: 119.3 kg Last Vital Signs Temp 97.1 F L 02/24/24 06:30 Pulse 75 02/24/24 06:30 Resp 16 02/24/24 06:30 BP 126/83 02/24/24 06:30 Pulse Ox 99 02/24/24 06:30 O2 Del Method Room Air 02/24/24 06:30 Allergies Allergy/AdvReac Type Severity Reaction Status Date / Time No Known Allergies Allergy Verified 12/04/23 16:09 Home Medications ?Medication ?Instructions ?Recorded ?Confirmed ?Type hydrochlorothiazide 25 mg tablet 25 mg PO DAILY 07/20/22 02/24/24 History Patient hx anesthesia problems: none Family hx anesthesia problems: none Results Review: All pre-operative results and documents have been reviewed as part of the pre-operative evaluation. [facility] Past Medical History Medical History Morbid obesity HTN (hypertension) Hx of migraines Healthy female adult Surgical History Surgical History No history of previous surgery Family History Family History Mother Family history non-contributory Social History Social History Smoking status: Never smoker Alcohol use details: 1 Beer per month Substance use: never Living arrangements: with family Additional living arrangements comments: Son Gender identity (if verbalized by the patient): Female Sexual Orientation (if Verbalized by the Patient): Straight or Heterosexual Spiritual care concerns: No Anes - Eval Final PreProcedure Day of Procedure 02/24/24 07:22 Patient weight: morbidly obese Heart: regular rate and rhythm Lungs: clear to auscultation Airway: Mallampati scale class II Neurological: alert and oriented Last oral intake: >/= 8 hours ASA classification: III Emergent: no Anesthetic plan: proceed Anesthesia type and monitoring: general ETT and standard monitoring Results Review: All pre-operative results and documents have been reviewed as part of the pre-operative evaluation. HTN, Morbid obesity. Informed Consent: The patient's anesthetic plan and its attendant risks and benefits were discussed with the patient/family/POA. Questions were solicited and answers provided to the satisfaction of the patient/family/POA.
[2024-02-24] MEDS: ceFAZolin 2 GM/D5W 50 ML 2 GM/50 ML BAG IVPB (07:28)
[2024-02-24 07:48] LABS: BEDSIDEPREGUCG Negative (Negative)
[2024-02-24] MEDS: METHYLENE BLUE 0.5% INJ 10 ML AMPULE IRRIGATION (09:55)
--- NOTE | 2024-02-24 10:14 | W.PM.PROC2 ---
Procedure Note - Detailed Date of Procedure 02/24/24 Pre-op Diagnosis Menorrhagia Post-op Diagnosis Same Procedure Performed Robot assisted Total hysterectomy with bilateral salpingo-oophorectomy. Cystoscopy Surgeon Josse Gillespie MD Anesthesia General Indications heavy vaginal bleeding, pelvic pain Findings Moderately enlarged uterus, normal-appearing ovaries, and and fallopian tubes. Some scarring the parametrium. Description of Procedure This patient was taken to the operating room. She was prepped and draped in the dorsal lithotomy position after induction of general anesthesia. The uterine manipulator and Ben cup were placed. This was done with a speculum and tenaculum. The speculum was placed. The cervix was grasped with a tenaculum. The stay sutures were placed at 3 and 9:00 a.m.. The stay sutures of 0 Vicryl were tied to the appropriately Size scope after it was slipped around the cervix.. The tip of the LENORA manipulator was placed in the intrauterine cavity. The cup was slid into place around the cervix and into the fornices. It was locked into place. The sutures were then wrapped around the handle and tied under tension. A 8 mm skin incision was made in the left upper quadrant the abdomen. a 5 mm Visiport trocar was inserted into abdominal cavity and pneumoperitoneum was achieved. A 8 mm supraumbilical incision was made and a 8 mm trocar was inserted into the intrauterine cavity under direct visualization of the scope. an 8 mm incision was made in the right upper quadrant of the abdomen and an 8 mm robotic trocar was placed the inter uterine cavity under direct visualization the scope. An 11 mm trocar was inserted in the right upper quadrant of the abdomen rectal is a cystoscope after an incision was made there as well. The robot was docked. Electronic Orientation of the robot was performed. Bilateral ureteral lysis was performed. This was done from the pelvic brim down to the uterine artery. This was done with careful dissection using sharp and blunt dissection.Bilateral salpingo-oophorectomy was performed. The bilateral infundibulopelvic ligaments were cauterized thoroughly and transected after visualization of the ureter passing over the pelvic brim. In stepwise fashion around the ovary the mesosalpinx was cauterized transected. The Fallopian tube tissue/ mesosalpinx was cauterized transected a stepwise fashion medially to the cornua of the uterus. the tube was transected at the cornua and cauterized thoroughly. The bilateral tubes and ovaries were taken out through the large air lock port. Then In a stepwise fashion along the lateral aspects of the uterus the round ligament and broad ligaments were cauterized transected down to the level of the uterine arteries. A bladder flap was created in the bladder was moved distally to the end of the cervix and over the Ben cup. The bilateral uterine arteries were cauterized and transected. Colpotomy was then performed. In a circumferential fashion the vagina was transected using unipolar cautery. The incision was made down on the Ben cup. The uterus and cervix were taken out through the vagina. A pneumo occluder was placed in the vagina. The vaginal cuff was closed with a 0 V lock suture in a running fashion. The pelvis was irrigated with copious amounts antibiotic irrigation. The ureters were again examined and found to be intact and flowing freely under the uterine arteries into the bladder. The bladder was intact. It was examined directly. Cystoscopy was performed after administration of methylene blue. The cystoscope was inserted. Bladder was distended with fluid. The ureteric meatus was observed bilaterally. Blue fluid was seen to egress bilaterally. The bladder was drained and the cystoscope was withdrawn. The vagina was irrigated with Betadine solution after removal of the Pneumo occluder. the trocars were removed after the robot was undocked. The skin was closed with subacute or Dermabond. The patient was taken to recovery room. She was stable condition. Sponge lap and needle counts were correct x2. Estimated Blood Loss 125 Urine Output 800 Drains Yes Packing No Pathology Yes Complications No immediate complications Condition Stable Disposition Floor
[2024-02-24] MEDS: fentaNYL CITRATE INJ (*CRX) 100 MCG/2 ML VIAL 25 MCG IV PUSH ×4 (10:24→11:10)
--- NOTE | 2024-02-24 11:40 | OBPPTRN ---
Patient transferred to post room #290 via bed. Oriented to unit, room, information board, rooming in, admission packet and security measures. Patient verbalizes understanding.
[2024-02-24] MEDS: DEXTROSE 5%/0.45% SOD CHL 1,000 ML 125 ML IV CONT ×2 (11:47→19:56)
[2024-02-24] MEDS: SIMETHICONE 80 MG TAB.CHEW PO ×2 (12:38→16:47)
[2024-02-24] MEDS: KETOROLAC 30 MG/ML VIAL (*BKC) IV PUSH ×2 (12:39→18:45)
[2024-02-24] MEDS: oxyCODONE HCL (*CRX) 5 MG TAB IR 10 MG PO (15:09)
[2024-02-24] MEDS: DOCUSATE SODIUM 100 MG CAPSULE PO (16:47)
--- NOTE | 2024-02-24 17:12 | PC.NURSE ---
Pharmacy consulted after patient complained of migraine and explained that she takes amitriptyline at home for headaches.Pharmacy verified that no drug interactions were found among current medications. Patient requested to take home medication of 100mg HS.
[2024-02-24] MEDS: ONDANSETRON INJ 4 MG/2 ML VIAL IV PUSH (17:20)
[2024-02-24] MEDS: hydroCHLOROthiazide 25 MG TABLET PO (17:37)
[2024-02-25 00:33] VITALS: BP 143/86; PULSE 79; RESP 18; TEMP 37; O2SAT 99
[2024-02-25] MEDS: KETOROLAC 30 MG/ML VIAL (*BKC) IV PUSH (00:50)
[2024-02-25] MEDS: ACETAMINOPHEN 500 MG TABLET 1000 MG PO ×2 (00:50→08:08)
[2024-02-25 04:25] VITALS: BP 116/63; PULSE 98; RESP 18; TEMP 36.6
--- NOTE | 2024-02-25 06:48 | WPDANESPN ---
Anes - Prog Note Post-Op Date/Time: 02/25/24 06:48 Cardiovascular status: normal Respiratory status: normal Airway patency: baseline Mental status: baseline Post-Op hydration status: normal Vital Signs: Last Vital Signs Temp 36.6 C 02/25/24 04:25 Pulse 98 02/25/24 04:25 Resp 18 02/25/24 04:25 BP 116/63 02/25/24 04:25 Pulse Ox 99 02/25/24 00:33 O2 Del Method Room Air 02/25/24 04:25 O2 Flow Rate 2 02/24/24 11:57 Pain Score (VAS): 2 I/O: Intake & Output 02/24/24 02/24/24 02/25/24 15:59 23:59 07:59 Intake Total 100 1800 1500 Output Total 7636 025 0380 Balance -1360 1150 -2700 02/24/24 06:30 POC Urine HCG, Qual Negative Post-procedural complaints: none Patient Feedback: Patient satisfied with anesthetic care.
--- NOTE | 2024-02-25 07:20 | PM.GYNPNOP ---
[employer] - A/P Postoperative Procedures: Procedures Operation Date: 02/24/24 07:30 Actual Procedure Side Surgeon p Robotic Assisted Hysterectomy with Bilateral Salpingo-oophorectomy, Cystoscopy Bilateral Josse Gillespie MD Postoperative day: 1 Postoperative status: doing well and other (Tollerating Regular Diet) Postoperative plan: routine post-op care and discharge Time Spent With Patient Time: Total time spent is greater than 50% in coordination of care (as documented) at patient's floor/unit and/or counseling patient: Time with patient: 15 - 25 minutes [employer]- PN:Subj Post-Op Subjective Date/time seen: 02/25/24 07:20 Subjective: patient reports feeling better, pain is well controlled and patient is tolerating oral intake Exam Const: General: cooperative, healthy appearing, comfortable and no acute distress Resp: Auscultation: no crackles, no rales, no rhonchi and no wheezes Cardio: Rhythm: regular rhythm Heart sounds: no click and no murmurs GI: Inspection: non-distended Auscultation: normal bowel sounds Other: Incisions - CDI Extrem: General: normal to inspection, no pedal edema and no calf tenderness [employer] - PN: Obj Data Vital Signs Vital Signs: Vital Signs - 24 hr 02/24/24 10:04 02/24/24 10:15 02/24/24 10:30 Temperature 97.3 F L Pulse Rate 92 79 78 Respiratory Rate 18 15 13 Blood Pressure 132/90 150/96 H 143/89 H Pulse Oximetry 98 98 98 Oxygen Delivery Simple Face Mask Simple Face Mask Simple Face Mask Oxygen Flow Rate 8 8 10 02/24/24 10:45 02/24/24 11:00 02/24/24 11:15 Temperature Pulse Rate 82 80 80 Respiratory Rate 15 12 15 Blood Pressure 151/91 H 160/90 H 152/87 H Pulse Oximetry 100 100 92 Oxygen Delivery Simple Face Mask Room Air Room Air Oxygen Flow Rate 10 02/24/24 11:19 02/24/24 11:22 02/24/24 11:57 Temperature 97.0 F L 96.6 F L Pulse Rate 74 78 Respiratory Rate 15 14 Blood Pressure 152/90 H 151/93 H Pulse Oximetry 92 95 99 Oxygen Delivery Nasal Cannula Nasal Cannula Oxygen Flow Rate 2 2 02/24/24 11:57 02/24/24 16:50 12/27/24 18:45 Temperature 98.1 F Pulse Rate 81 Respiratory Rate 18 Blood Pressure 142/89 H Pulse Oximetry 99 98 Oxygen Delivery Nasal Cannula Room Air Oxygen Flow Rate 2 02/24/24 18:45 02/24/24 20:17 02/25/24 00:33 Temperature 98.6 F Pulse Rate 83 79 Respiratory Rate 18 Blood Pressure 140/85 143/86 H Pulse Oximetry 99 Oxygen Delivery Room Air Oxygen Flow Rate 02/25/24 00:33 02/25/24 04:25 02/25/24 04:25 Temperature 97.9 F Pulse Rate 98 Respiratory Rate 18 Blood Pressure 116/63 Pulse Oximetry Oxygen Delivery Room Air Room Air Oxygen Flow Rate Intake/Output Intake/Output: Intake & Output 02/22/24 02/23/24 02/24/24 02/25/24 23:59 23:59 23:59 23:59 Intake Total 1950 1500 Output Total 2110 4200 Balance -160 -2700 Meds/Results Medications: Active Medications Generic Name Dose Route Start Last Admin Trade Name Freq PRN Reason Stop Dose Admin Acetaminophen 1,000 mg 02/24/24 12:00 02/25/24 00:50 Acetaminophen 500 Mg Tablet PO 1,000 mg Q6HR JOSE Administration Docusate Sodium 100 mg 02/24/24 17:00 02/24/24 16:47 Docusate Sodium 100 Mg Capsule PO 100 mg BID JOSE Administration Hydrochlorothiazide 25 mg 02/25/24 09:00 Hydrochlorothiazide 25 Mg Tablet PO DAILY JOSE Dextrose/Sodium Chloride 1,000 mls @ 125 mls/hr 02/24/24 11:32 02/25/24 03:56 Dextrose 5% Sodium Chloride 0.45% IV CONT Infused .Q8H JOSE Infusion Ibuprofen 600 mg 02/25/24 06:00 Ibuprofen 600 Mg Tablet PO Q6HR JOSE Naloxone HCl 0.1 mg 02/24/24 11:32 Naloxone Hcl 0.4 Mg/Ml Vial IV PUSH Q2M PRN Respiratory rate less than 10 Ondansetron HCl 4 mg 02/24/24 11:32 02/24/24 17:20 Ondansetron Inj 4 Mg/2 Ml Vial IV PUSH 4 mg Q6H PRN Administration Nausea And Vomiting Oxycodone HCl 5 mg 02/24/24 11:32 Oxycodone Hcl (*Crx) 5 Mg Tab Ir PO Q4H PRN Pain Rated 4-6 Oxycodone HCl 10 mg 02/24/24 11:32 02/24/24 15:09 Oxycodone Hcl (*Crx) 5 Mg Tab Ir PO 10 mg Q6H PRN Administration Pain Rated 7-10 Simethicone 80 mg 02/24/24 12:00 02/24/24 16:47 Simethicone 80 Mg Tab.Chew PO 80 mg TIDWM JOSE Administration Labs Labs: Laboratory Results - last 24 hr 02/24/24 06:30 POC Urine HCG, Qual Negative
[2024-02-25 07:45] VITALS: BP 136/84; PULSE 100; RESP 16; TEMP 37.6; O2SAT 99
[2024-02-25] MEDS: SIMETHICONE 80 MG TAB.CHEW PO (08:09)
[2024-02-25] MEDS: IBUPROFEN 600 MG TABLET PO (08:09)
[2024-02-25] MEDS: hydroCHLOROthiazide 25 MG TABLET PO (08:09)
[2024-02-25] MEDS: DOCUSATE SODIUM 100 MG CAPSULE PO (08:09)
--- OUTSIDE RECORDS SUMMARY | 2024-03-02 01:28 | XMS_ITS | CONTINUITY OF CARE DOCUMENT ---
Author Name shyla mansfield Address Unknown Organization [facility] Address [address] [place] [address] Phone [phone] Care Team Providers Care Patient Assistant Name Role Phone shyla mansfield Unavailable Unavailable INSURANCE PROVIDERS Payer name Policy type / Coverage type Roland red democrat [id number] MEDICAID (2) Medicaid [id number]
--- OUTSIDE RECORDS SUMMARY | 2024-03-02 01:28 | XMS_ITS | Data Portability ---
Author Organization [employer], Main Office Address [address] [place] [address] Assessment Encounter Date Assessment Date Assessment LastModified [...] methylpre dnisolone 8 mg tablet 2023 024 [id number], [address], [place], [place], [id number], 4 12:46:04 Patient TargetsNo targets recorded. Patient Instructions Encounter Date Encounter Id Patient Instructions Last Modified By Organization Details Last Modified Time 09/21/2023 [id number] application of cast, short leg cast* CATHERINE Not available 09/29/2023 04:27:01 Reason for Referral None Reported. Problems Name Problem SNOMED Code Status Onset Date Resolution Date Notes Provider Name and Address Organization Details Recorded Time Plantar fasciitis of right foot 0872662592441 9101 Active 2023 ANNA MARIE Alvarez, [employer] 15:49:57 Pain in right foot 3422367694920 07 Active 2023 Spike Navas DPM [address] [facility] [facility] [address], [place], [address], [employer] [facility] [employer] 4 16:20:12 Edema of lower extremity 512722198 Active 2023 Spike Navas DPM [address], [place], [address], [employer] [facility] 4 16:20:18 Leg length inequality 26039054 Active 2023 Spike Navas DPM [address], [place], [address], [employer] [facility] 4 16:21:06 Plantar fasciitis 071404564 Active 2023 ANNA MARIE Alvarez, MD [facility] [address] [facility] [employer] 4 10:40:55 Edema 363879537 Active 2023 Spike Navas DPM [address], [place], [address], [employer] [facility] 4 12:27:46 Problem Notes None recorded. Procedures Surgical History Date Name Laterality Status Provider Name and Address Organization Details Recorded Time 10/06/19 Unna boot - LE edema completed Spike Navas DPM [address], [place], [address], [employer] [facility] [employer] 10/07/2023 09:20:24 09/28/19 24 Unna boot - LE edema completed Spike Navas DPM [address], [place], [address], [employer] [facility] [employer] 09/28/2023 12:27:34 09/21/19 24 Trigger Point Injection completed Spike Navas DPM [address], [place], [address], [employer] [facility] [employer] [facility] 09/22/2023 08:43:43 09/14/19 24 Corticosteroid Injection completed Spike Navas DPM [address], [place], [address], [facility] [employer] 09/14/2023 12:28:46 09/14/19 24 Strapping Foot & Ankle completed Spike Navas DPM [address], [place], [address], [facility] [employer] [facility] 09/14/2023 12:28:06 09/07/19 24 Trigger Point Injection completed Spike Navas DPM [address], [place], [address], [facility] [employer] [facility] 09/07/2023 14:32:22 09/07/19 24 Strapping Foot & Ankle completed Spike Navas DPM [address], [place], [address], [facility] [employer] [facility] 09/07/2023 14:32:40 07/20/19 24 Trigger Point Injection completed Spike Navas DPM [address], [place], [address], [facility] [employer] [facility] 07/20/2023 09:26:00 07/20/19 24 Unna boot - LE edema completed Spike Navas DPM [address], [place], [address], [facility] [employer] [facility] 07/20/2023 09:26:07 07/11/19 24 Trigger Point Injection completed Spike Navas DPM [address], [place], [address], [facility] [employer] [facility] 07/11/2023 16:19:47 07/11/19 24 Unna boot - LE edema completed Spike Navas DPM [address], [place], [address], [facility] [employer] [facility] 07/11/2023 16:20:08 Imaging Results None recorded. Procedure [...] Updated DateTime 4 172.72 cm 39.8 kg/m2 393941. 2 g 99 % 99 % 98.2 [degF] 77 /min Elías Toth, [facility] [employer] [facility] 4 10:34:40 Date Recorded Body height Body mass index (BMI) Body weight Oxygen saturation Oxygen saturation in Arterial blood by Pulse oximetry Body temperature Heart rate Provider Name and Address Organization Details Last Updated DateTime 4 172.72 cm 39.8 kg/m2 744735. 2 g 98 % 98 % 98.6 [degF] 70 /min Elías Toth [facility] [employer] [facility] 4 12:04:35 Date Recorded Body height Body mass index (BMI) Body weight Oxygen saturation Oxygen saturation in Arterial blood by Pulse oximetry Body temperature Heart rate Provider Name and Address Organization Details Last Updated DateTime 4 172.72 cm 39.8 kg/m2 384702. 2 g 98 % 98 % 98.2 [degF] 66 /min ANNA MARIE Alvarez [facility] [employer] [facility] 4 12:04:37 Date Recorded Body height Body mass index (BMI) Body weight Oxygen saturation Oxygen saturation in Arterial blood by Pulse oximetry Body temperature Heart rate Provider Name and Address Organization Details Last Updated DateTime 4 172.72 cm 39.8 kg/m2 798391. 2 g 98 % 98 % 98.2 [degF] 70 /min ANNA MARIE Alvarez [facility] [employer] [facility] 4 11:40:22 Date Recorded Body height Body mass index (BMI) Body weight Oxygen saturation Oxygen saturation in Arterial blood by Pulse oximetry Body temperature Heart rate Provider Name and Address Organization Details Last Updated DateTime 4 172.72 cm 39.8 kg/m2 339915. 2 g 96 % 96 % 98.4 [degF] 77 /min ANNA MARIE Alvarez [facility] [employer] [facility] 4 16:01:00 Social History Question Answer Notes LastModified by ADIKTIVOizat ion Details LastModified Time Tobacco Smoking Status Never Smoker ANNA MARIE Alvarez [facility] [employer] [facility] 07/11/2023 15:40:48 What Is Your Level Of Alcohol Consumption? Occasional Information not available 07/11/2023 What Is Your Level Of Caffeine Consumption? Moderate [email or web address] Information not available 07/11/2023 What Was The Date Of Your Most Recent Tobacco Screening? 10/06/2023 [email or web address] Information not available 10/06/2023 Do You Use Any Illicit Or Recreational Drugs? No [email or web address] Information not available 07/11/2023 Sex: Unknown Functional Status None recorded. Mental Status None recorded. Family History Relationship Description Onset Age of this Age Resolved Age Notes LastModified by Organization Details LastModified Time Father Diabetes mellitus [email or web address] Not available 2023 15:39:08 Father Hypertensive disorder Not available 2023 15:39:34 Mother Diabetes mellitus [email or web address] Not available 2023 15:39:08 Mother Hypertensive disorder [email or web address] Not available 2023 15:39:34 Maternal Grandmother Hypertensive disorder [email or web address] Not available 2023 15:39:34 Paternal Grandmother Malignant neoplastic disease [email or web address] Not available 2023 15:39:56 Medical History Condition Response HEADACHES/MIGRAINES Y Gynecological HistoryNo gynecological history recorded. Obstetrics History GPAL:G 0 P 0 0 0 0 Past Encounters Encounter ID Performer Location Encounter Start Date Encounter Closed Date Diagnosis/Indication Diagnosis SNOMED-CT Code Diagnosis ICD10 Code Diagnosis Note [id number] Spike Navas DPM [facility] [place] [address] [address] 07/11/2023 15:17:13 10/04/2023 17:50:53 Plantar fasciitis of right foot 3693408649 7202843 M72.2 Pain in right foot 36850 15993 62654 M79.671 Edema of l ower extremity 468120241 R60.0 Leg length inequality 45 734693 M21.70 [id number] Spike Navas DPM [facility] [address] [address] 07/20/2023 09:05:50 07/20/2023 09:53:32 Pain in right foot 2612366166 70444 M79.671 Edema of l ower extremity 098995032 R60.0 Plantar fa sciitis of right foot 4397976033 3765184 M72.2 Leg length inequality 45 550366 M21.70 [id number] Spike Navas DPM [facility] [place] [address] [address] 09/07/2023 10:19:16 09/07/2023 14:45:41 Plantar fasciitis 469544438 M72.2 Pain in right foot 17362 36182 42514 M79.950 [id number] Spike Navas DPM [facility] [address] [address] 09/14/2023 12:01:15 09/14/2023 12:35:34 [id number] Spike Navas DPM [facility] [place] [address] [address] [address] 09/21/2023 11:54:24 09/22/2023 10:15:08 Pain in right foot 6951851849 48939 M79.671 Edema of l ower extremity 979685892 R60.0 [id number] Spike Navas DPM [facility] [place] [address] [address] 09/28/2023 11:32:25 09/28/2023 12:52:52 Pain in right foot 6768245431 02302 M79.671 Edema 767104430 R60.9 Edema of l ower extremity 912760955 R60.0 [id number] Spike Navas DPM [facility] [address] [address] [address] 10/06/2023 15:56:09 11/28/2023 16:38:07 Pain in right foot 6920906223 12772 M79.671 Edema of l ower extremity 757064276 R60.0 Health Concerns Section Related Observation LastModified by Organization Detai ls LastModified Time None Recorded Concern Status LastModified by Organization Details LastModified Time None Recorded Advance Directives Directive None Recorded Payers Encounter Date Sequence Insurance Name Policy Number Policy Astorga Covered Member ID Astorga Member ID Guarantor Name 09/07/2023 1 [facility] (MEDICAID HMO) [id number] Jaja Parry [id number] Jaja Parry 09/14/2023 1 [facility] (MEDICAID HMO) [id number] Jaja Parry [id number] Jaja Parry 09/21/2023 1 [facility] (MEDICAID HMO) [id number] 0003 Jaja Parry [id number] Jaja Parry 09/28/2023 1 [facility] (MEDICAID HMO) [id number] 0003 Jaja Parry [id number] Jaja Parry 10/06/2023 1 [facility] (MEDICAID HMO) [id number] 0003 Jaja Sohan [id number] Jaja Parry Notes Date Note Type Note Provider Name and Address Organization Details Recorded Time 09/07/2023 text/html 30 % improved at this time, Rt foot, PFitis. Rx and previous injections helpful, but pt is undergoing weight loss regimen and WB and walking excessively to lose weight. Pain has recurred. Spike Navas DPM [address], [place], [address], [facility] 09/07/2023 14:32:55 09/14/2023 text/html Persistent heel pain, Rt foot. Unrelieved by injections and steroids oral. Spike Navas DPM [address], [place], [address], [facility] 09/14/2023 12:29:09 09/21/2023 text/html Pt RTC for sever PFitis, heel spur, Rt foot. Unrelieved by oral meds, taping and support, injections. Spike Navas DPM [employer], [place], [address], [facility] 09/22/2023 09:02:20 09/28/2023 text/html Pt RTC for [...] is mildly improved. Spike Navas DPM [address], [place], [address], [facility] 09/28/2023 12:28:07 10/06/2023 text/html Pt RTC in low profile walker. States that she still has pain during ambulation, 30% improved since pain was at its worst. Pt was instructed on proper application of the device (too loose as worn). Spike Navas DPM [address], [place], [address], [place] [facility] 10/07/2023 09:20:43 OBGyn Episode No OBEpisode recorded.
--- OUTSIDE RECORDS SUMMARY | 2024-03-02 01:29 | XMS_ITS | Continuity of Care Document ---
Author Organization [facility] [place] Address [address] [place] [address] Care Team Providers Care Imaging Engineer Name Role Phone RICCO PRESTONSEY Primary Care [...] s No observ ation record ed. [email or web address] [place] [address], [place], [address], 12/08/2023 10:29:38 12/08/1912/08/2023 US, trans vagin al No observ ation record ed. [email or web address] [place] [address], [place], [address], 12/08/2023 10:29:48 12/08/1912/08/2023 US, huevi s No observ ation record ed. [email or web address] [address], [place], [address], 12/08/2023 22:24:30 Result Notes None recorded. Problems Name Problem SNOMED Code Status Onset Date Resolution Date Notes Provider Name and Address Organization Details Recorded Time Removal of intrauter ine device Active 2012 REMOVAL OF IUD;Record ed Elsewhere: No Locatio n: [facility] rce: EHR Chroni c: N Practice ID: 0001 Billa ble Time: 03:30:00 PM Not Available [facility] 0 16:09:36 Insertion of intrauter ine contracep tive device Active 2012 INSERTION OF IUD;Record ed Elsewhere: No Locatio n: [facility] rce: EHR Chroni c: N Practice ID: 0001 Billa ble Time: 10:30:00 AM Not Available [facility] 0 16:09:36 Uses IUD (intraute rine device) contracep tion 780635671 Active 2013 Surveillan ce of intrauteri ne contracept torsten device;Rec orded Elsewhere: No Locatio n: [facility] rce: EHR Chroni c: N Practice ID: 0001 Billa ble Time: 04:00:00 PM Not Available [facility] 0 16:09:36 Screening for malignant neoplasm of cervix Active 2012 Screening for malignant neoplasms of the cervix;Rec orded Elsewhere: No Locatio n: [facility] rce: EHR Chroni c: N Practice ID: 0001 Billa ble Time: 09:00:00 AM Not Available [facility] 0 16:09:36 Specializ ed medical examinati on Active 2012 Gynecologi isela Examinatio n;Recorded Elsewhere: No Locatio n: [facility] rce: EHR Chroni c: N Practice ID: 0001 Billa ble Time: 09:00:00 AM Not Available [facility] 0 16:09:36 test negative 543452048 Active 2012 examinatio n or test, negative result;Rec orded Elsewhere: No Locatio n: [facility] rce: EHR Chroni c: N Practice ID: 0001 Billa ble Time: 10:30:00 AM Not Available [facility] 0 16:09:36 Problem Notes None recorded. Procedures Surgical History Date Name Laterality Status Provider Name and Address Organization Details Recorded Time 02/24/20 24 ROBOTIC ASSISTED HYSTERECTOMY W/BILATERAL SALPINGO-OOPHORECT TYLER (SURG) completed Jacquelin Thomson [facility] 02/24/2024 12:06:20 04/01/19 23 Date of Last Pap Smear completed [facility] 11/28/2023 14:54:49 02/28/19 21 cholecystectomy completed [facility] 11/28/2023 16:10:10 10/20/19 08 Dilation and Curettage completed [facility] 11/28/2023 16:09:48 10/12/19 08 Colposcopy completed [facility] 11/28/2023 16:12:36 10/12/19 08 LEEP completed [facility] 11/28/2023 16:10:55 08/29/19 08 Colposcopy completed [facility] 11/28/2023 16:11:08 02/28/19 06 Dilation and Curettage completed [facility] 11/28/2023 16:09:09 02/28/19 05 Dilation and Curettage completed [facility] 11/28/2023 16:09:31 02/28/19 04 Dilation and Curettage completed [facility] 11/28/2023 16:08:51 12/14/19 02 section completed [facility] 11/28/2023 16:11:50 02/28/19 02 Dilation and Curettage completed [facility] 11/28/2023 16:08:39 02/28/19 01 Dilation and Curettage completed [facility] 11/28/2023 16:07:47 02/28/19 00 Dilation and Curettage completed [facility] 11/28/2023 16:07:42 02/28/19 00 Laparoscopy completed [facility] 11/28/2023 16:10:40 02/28/18 98 Dilation and Curettage completed [facility] 11/28/2023 16:07:26 02/28/18 97 Dilation and Curettage completed [facility] 11/28/2023 16:08:04 02/28/18 96 Dilation and Curettage completed [facility] 11/28/2023 16:08:01 02/28/18 95 Dilation and Curettage completed [facility] 11/28/2023 16:08:27 02/28/18 94 Dilation and Curettage completed [facility] 11/28/2023 16:07:07 Imaging Results None recorded. Procedure Notes None recorded. Medical Equipment None Reported. Allergies No known drug allergies Medications Name Sig Start Date Stop Date Status Note LastModified by Organization Details LastModified Time Mirena 21 mcg/24 hr (up to 8 years) 52 mg intrauter ine device active Prescrib ed Elsewher e: Yes [facility] By: [email or web address] trick En counter DateTime : 02/10/20 13 10:30:00 AM Not Available Not Available Not Available hydrocodo ne 5 mg-acetam inophen 325 mg tablet 2023 active Not Available Not Available Not Avai lable Flagyl 500 mg tablet take 1 tablet (500MG) by oral route every 12 hours for 10 days 03/12 completed Prescrib ed Elsewher e: No Locat ion: [facility] odify By: [email or web address] trick En counter DateTime [...] the affected area(s) 03/08 completed Prescrib ed Brendanher e: No Locat ion: [facility] odify By: [email or web address] Encount er DateTime : [...] Address Organization Details Last Updated DateTime 12/07/2023 275077.5 8 g 39.5 kg/m2 172.72 cm 115 mm[Hg] 80 mm[Hg] Ofelia Snyder [facility] 12:03:11 Social History Question Answer Notes LastModified by Organizat ion Details LastModified Time Tobacco Smoking Status Never Smoker Ofelia Snyder [facility] 12/07/2023 12:05:33 What Is Your Level [...] Or The Highest Degree You Have Received? 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 No Information not available 12/07/2023 Do You Feel Stressed (tense, Restless, Nervous, Or Anxious, Or Unable To Sleep At Night)? DQ03058-2 Information not available 12/07/2023 Do You Use [...] Organization Details LastModified Time Mother Diabetes mellitus [email or web address] Not available 11/27 15:01:54 Mother Malignant tumor of cervix [email or web address] Not available 11/27 15:02:07 Father Diabetes mellitus [email or web address] Not available 11/27 15:01:54 Sister Diabetes mellitus [email or web address] Not available 11/27 15:01:54 Brother Diabetes mellitus [email or web address] Not available 11/27 15:01:55 Maternal Grandmother Diabetes mellitus [email or web address] Not available 11/27 15:01:55 Paternal Grandmother Diabetes mellitus [email or web address] Not available 11/27 15:01:55 Paternal Grandmother Malignant tumor of lung [email or web address] Not available 11/27 15:02:32 Maternal Grandfather Diabetes mellitus [email or web address] Not available 11/27 15:02:52 Paternal Grandfather Diabetes mellitus [email or web address] Not available 11/27 15:03:00 Medical History Condition Response Allergies (Food, seasonal, environmental ) N Other N Drug/Latex Allergies/Reactions N Breast Cancer N Blood Transfusion N Lung Disease N Dermatologic Disorders N Defects or Inherited Disease N Breast Problem N Gestational Diabetes N Hematologic disorders N Anesthesia Complications N History of STI N Deep Vein Thrombosis N Polycystic ovary syndrome N Anxiety Disorder N Autoimmune disease N Arthritis N Polyps N Infertility N Acid Reflux (GERD) N History of abnormal pap N Cancer N Varicosities N Stroke N Neurologic/Epilepsy N Endometriosis N High Cholesterol N Fibromyalgia N Headaches N Kidney Disease N Heart Problems N Thyroid Problems N Kidney or Bladder Problems N GI Problems N Eating Disorder [...] Duration of Flow (days) Current Control Method Hysterectom y Date of Last Colonoscopy Sexually Active? N [...] Diagnosis/Indication Diagnosis SNOMED-CT Code Diagnosis ICD10 Code [id number] Josse Gillespie MD [place] [address] [address] 12/07/2023 11:45:14 12/07/2023 12:55:02 Menorrhagia 156098880 N92.0 Health Concerns Section Related Observation LastModified by Organization Detai ls LastModified Time None Recorded Concern Status LastModified by Organization Details LastModified Time None Recorded Payers Encounter Date Sequence Insurance Name Policy Number Policy Astorga Covered Member ID Astorga Member ID Guarantor Name 12/07/2023 1 [facility] (MEDICAID HMO) [id number] Jaja Parry [id number] Jaja Parry Notes Date Note Type Note [...] over 30 minutes on her care. Josse Gillespei MD [address], [place], [address], [place] [facility] 12/07/2023 12:54:55 OBGyn Episode No OBEpisode recorded.
--- OUTSIDE RECORDS SUMMARY | 2024-03-02 01:29 | XMS_ITS | Continuity of Care Document ---
Author Organization [facility] [place] [place] Address [address] [place] [address] Care Team Providers Care Director Sales Support Name Role Phone ISAACDWAINERICCOKALYANI Primary Care Provider [phone] Assessment No assessment recorded. Plan of Treatment Reminders Order Date Submit Date Provider Last Modified By Organization Details Last Modified Time Details Appointments None recorded. Lab None recorded. Referral None recorded. Procedures None recorded. Surgeries robotic assisted hysterectom y w/bilateral salpingo-oo phorectomy (SURG) 2023 024 [facility], [address], [place], [address], 12:05:32 Imaging None recorded. Medication Orders None recorded. Patient TargetsNo targets recorded. Patient InstructionsNo instructions recorded. Reason for Referral None Reported. Results Created Date Observation Date Name Description Value Unit Range Abnormal Flag Note LastModifiedBy Organization Detail LastModifiedTime 12/08/1912/08/2023 US, pelvi s No observ ation record ed. [email or web address] [place] [address], [place], [address], 12/08/2023 10:29:38 12/08/1912/08/2023 US, trans vagin al No observ ation record ed. [email or web address] [place] [address], [place], [address], 12/08/2023 10:29:48 12/08/1912/08/2023 US, pelvi s No observ ation record ed. [email or web address] [address], [place], [address], 12/08/2023 22:24:30 Result Notes None recorded. Problems Name Problem SNOMED Code Status Onset Date Resolution Date Notes Provider Name and Address Organization Details Recorded Time Removal of intrauter ine device Active 2012 REMOVAL OF IUD;Record ed Elsewhere: No Locatio n: [facility] rce: EHR Chroni c: N Practice ID: 0001 Billa ble Time: 03:30:00 PM Not Available [facility] 0 16:09:36 Insertion of intrauter ine contracep tive device Active 2012 INSERTION OF IUD;Record ed Elsewhere: No Locatio n: [facility] rce: EHR Chroni c: N Practice ID: 0001 Billa ble Time: 10:30:00 AM Not Available [facility] 0 16:09:36 Uses IUD (intraute rine device) contracep tion [id number] Active 2013 Surveillan ce of intrauteri ne contracept torsten device;Rec orded Elsewhere: No Locatio n: [facility] rce: EHR Chroni c: N Practice ID: 0001 Billa ble Time: 04:00:00 PM Not Available [facility] 0 16:09:36 Screening for malignant neoplasm of cervix Active 2012 Screening for malignant neoplasms of the cervix;Rec orded Elsewhere: No Locatio n: [facility] rce: EHR Chroni c: N Practice ID: 0001 Billa ble Time: 09:00:00 AM Not Available [facility] 0 16:09:36 Specializ ed medical examinati on Active 2012 Gynecologi isela Examinatio n;Recorded Elsewhere: No Locatio n: [facility] rce: EHR Chroni c: N Practice ID: 0001 Billa ble Time: 09:00:00 AM Not Available [facility] 0 16:09:36 test negative [id number] Active 2012 examinatio n or test, negative result;Rec orded Elsewhere: No Locatio n: [facility] Fide rce: EHR Chroni c: N Practice ID: 0001 Parul ble Time: 10:30:00 AM Not Available [facility] 16:09:36 Problem Notes None recorded. Procedures Surgical History Date Name Laterality Status Provider Name and Address Organization Details Recorded Time 02/24/20 24 ROBOTIC ASSISTED HYSTERECTOMY W/BILATERAL SALPINGO-OOPHORECT AVIS (SURG) completed Jacquelin Thomson [facility] 02/24/2024 12:06:20 04/01/19 23 Date of Last Pap Smear completed [facility] 11/28/2023 14:54:49 02/28/19 21 cholecystectomy completed [facility] 11/28/2023 16:10:10 10/20/19 08 Dilation and Curettage completed [facility] 11/28/2023 16:09:48 10/12/19 08 Colposcopy completed [facility] 11/28/2023 16:12:36 10/12/19 08 LEEP completed [facility] 11/28/2023 16:10:55 08/29/19 08 Colposcopy completed [facility] 11/28/2023 16:11:08 02/28/19 06 Dilation and Curettage completed [facility] 11/28/2023 16:09:09 02/28/19 05 Dilation and Curettage completed [facility] 11/28/2023 16:09:31 02/28/19 04 Dilation and Curettage completed [facility] 11/28/2023 16:08:51 12/14/19 02 section completed [facility] 11/28/2023 16:11:50 02/28/19 02 Dilation and Curettage completed [facility] 11/28/2023 16:08:39 02/28/19 01 Dilation and Curettage completed [facility] 11/28/2023 16:07:47 02/28/19 00 Dilation and Curettage completed [facility] 11/28/2023 16:07:42 02/28/19 00 Laparoscopy completed [facility] 11/28/2023 16:10:40 02/28/18 98 Dilation and Curettage completed [facility] 11/28/2023 16:07:26 02/28/18 97 Dilation and Curettage completed [facility] 11/28/2023 16:08:04 02/28/18 96 Dilation and Curettage completed [facility] 11/28/2023 16:08:01 02/28/18 95 Dilation and Curettage completed [facility] 11/28/2023 16:08:27 02/28/18 94 Dilation and Curettage completed [facility] 11/28/2023 16:07:07 Imaging Results None recorded. Procedure Notes None recorded. Medical Equipment None Reported. Allergies No known drug allergies Medications Name Sig Start Date Stop Date Status Note LastModified by Organization Details LastModified Time Mirena 21 mcg/24 hr (up to 8 years) 52 mg intrauter ine device active Prescrib ed Elsewher e: Yes Loca tion: [facility] M odify By: [email or web address] trick En counter DateTime : 02/10/20 13 10:30:00 AM Not Available Not Available Not Available hydrocodo ne 5 mg-acetam inophen 325 mg tablet 2023 active Not Available Not Available Not Avai lable Flagyl 500 mg tablet take 1 tablet (500MG) by oral route every 12 hours for 10 days 03/12 completed Prescrib ed Elsewher e: No Locat ion: [facility] odify By: [email or web address] trick En counter DateTime [...] Prescrib ed Elsewher e: No Locat ion: [facility] odify By: cmedical Encount er DateTime : [...] Updated DateTime 12/13/2023 172.72 cm 38.9 kg/m2 573815.6 5 g 126 mm[Hg] 86 mm[Hg] Hiwot Kenyon [facility] 09:35:00 Social History Question Answer Notes LastModified by Organizat ion Details LastModified Time Tobacco Smoking Status Never Smoker Ofelia Snyder adria, [facility] 12/07/2023 12:05:33 What Is Your Level [...] Or The Highest Degree You Have Received? 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 No Information not available 12/07/2023 Do You Feel Stressed (tense, Restless, Nervous, Or Anxious, Or Unable To Sleep At Night)? [id number] Information not available 12/07/2023 Do You Use [...] Organization Details LastModified Time Mother Diabetes mellitus [email or web address] Not available 11/27 15:01:54 Mother Malignant tumor of cervix [email or web address] Not available 11/27 15:02:07 Father Diabetes mellitus [email or web address] Not available 11/27 15:01:54 Sister Diabetes mellitus [email or web address] Not available 11/27 15:01:54 Brother Diabetes mellitus [email or web address] Not available 11/27 15:01:55 Maternal Grandmother Diabetes mellitus [email or web address] Not available 11/27 15:01:55 Paternal Grandmother Diabetes mellitus [email or web address] Not available 11/27 15:01:55 Paternal Grandmother Malignant tumor of lung [email or web address] Not available 11/27 15:02:32 Maternal Grandfather Diabetes mellitus [email or web address] Not available 11/27 15:02:52 Paternal Grandfather Diabetes mellitus [email or web address] Not available 11/27 15:03:00 Medical History Condition [...] Diagnosis/Indication Diagnosis SNOMED-CT Code Diagnosis ICD10 Code [id number] Josse Gillespie MD [place] [address],[facility] [place] [address] 12/07/2023 11:45:14 12/07/2023 12:55:02 Menorrhagia 458349854 N92.0 [id number] [facility] [address],[facility] [place] [address] 12/08/2023 09:28:38 12/08/2023 09:52:58 Menorrhagia 310594779 N92.0 [id number] Josse Gillespie MD [place] [address],[place] [address] 12/13/2023 09:31:22 12/13/2023 12:40:55 Menorrhagia 675184925 N92.0 Family his tory of malignant neoplasm of ovary [id number] Z80.41 Health Concerns Section Related Observation LastModified by Organization Detai ls LastModified Time None Recorded Concern Status LastModified by Organization Details LastModified Time None Recorded Payers Encounter Date Sequence Insurance Name Policy Number Policy Astorga Covered Member ID Astorga Member ID Guarantor Name 12/13/2023 1 [facility] (MEDICAID HMO) [id number] Jaja Parry [id number] Jaja Parry Notes Date Note Type Note [...] infection. Josse Gillespie MD [address], [place], [address], [facility] [place] 12/13/2023 12:34:48 OBGyn Episode No OBEpisode recorded.
--- OUTSIDE RECORDS SUMMARY | 2024-03-02 01:29 | XMS_ITS | Continuity of Care Document ---
Author Organization [facility] [place] Address [address] [place] [address] Care Team Providers Care Rotary Peel Oven Tender Name Role Phone KALYANI PRESTON Primary Care Provider Assessment No assessment recorded. Plan of Treatment Reminders Order Date Submit Date Provider Last Modified By Organization Details Last Modified Time Details Appointments None recorded. Lab None recorded. Referral None recorded. Procedures None recorded. Surgeries None recorded. Imaging US, pelvis 2023 [place] [id number] [address] [place], [place], [address], 14:34:58 US, transvagina l 2023 [email or web address] 4 [place], [place], [address], 14:34:58 Medication Orders None recorded. Patient TargetsNo targets recorded. Patient InstructionsNo instructions recorded. Reason for Referral None Reported. Results Created Date Observation Date Name Description Value Unit Range Abnormal Flag Note LastModifiedBy Organization Detail LastModifiedTime 12/08/1912/08/2023 US, pelvi s No observ ation record ed. [email or web address] [place] [address], [place], [address], 12/08/2023 10:29:38 12/08/1912/08/2023 US, trans vagin al No observ ation record ed. [email or web address] [place] [address], [place], [address], 12/08/2023 10:29:48 12/08/19 24 12/08/2023 US, migdalia s No observ ation record ed. [email or web address] [address], [place], [address], 12/08/2023 22:24:30 Result Notes None recorded. Problems Name Problem SNOMED Code Status Onset Date Resolution Date Notes Provider Name and Address Organization Details Recorded Time Removal of intrauter ine device Active 2012 REMOVAL OF IUD;Record ed Elsewhere: No Locatio n: [facility] rce: EHR Chroni c: N Practice ID: 0001 Billa ble Time: 03:30:00 PM Not Available [facility] 0 16:09:36 Insertion of intrauter ine contracep tive device Active 2012 INSERTION OF IUD;Record ed Elsewhere: No Locatio n: [facility] rce: EHR Chroni c: N Practice ID: 0001 Billa ble Time: 10:30:00 AM Not Available [facility] 0 16:09:36 Uses IUD (intraute rine device) contracep tion [id number] Active 2013 Surveillan ce of intrauteri ne contracept torsten device;Rec orded Elsewhere: No Locatio n: [facility] rce: EHR Chroni c: N Practice ID: 0001 Billa ble Time: 04:00:00 PM Not Available [facility] 0 16:09:36 Screening for malignant neoplasm of cervix Active 2012 Screening for malignant neoplasms of the cervix;Rec orded Elsewhere: No Locatio n: [facility] rce: EHR Chroni c: N Practice ID: 0001 Billa ble Time: 09:00:00 AM Not Available [facility] 0 16:09:36 Specializ ed medical examinati on Active 2012 Gynecologi isela Examinatio n;Recorded Elsewhere: No Locatio n: [facility] rce: EHR Chroni c: N Practice ID: 0001 Billa ble Time: 09:00:00 AM Not Available [facility] 0 16:09:36 test negative [id number] Active 2012 examinatio n or test, negative result;Rec orded Elsewhere: No Locatio n: [facility] Fide rce: EHR Chroni c: N Practice ID: 0001 Billa ble Time: 10:30:00 AM Not Available [facility] 0 16:09:36 Problem Notes None recorded. Procedures Surgical History Date Name Laterality Status Provider Name and Address Organization Details Recorded Time 02/24/20 24 ROBOTIC ASSISTED HYSTERECTOMY W/BILATERAL SALPINGO-OOPHORECT TYLER (SURG) completed Jacquelin Thomson [facility] 02/24/2024 12:06:20 04/01/19 23 Date of Last Pap Smear completed [facility] 11/28/2023 14:54:49 02/28/19 21 cholecystectomy completed [facility] 11/28/2023 16:10:10 10/20/19 08 Dilation and Curettage completed [facility] 11/28/2023 16:09:48 10/12/19 08 Colposcopy completed [facility] 11/28/2023 16:12:36 10/12/19 08 LEEP completed [facility] 11/28/2023 16:10:55 08/29/19 08 Colposcopy completed [facility] 11/28/2023 16:11:08 02/28/19 06 Dilation and Curettage completed [facility] 11/28/2023 16:09:09 02/28/19 05 Dilation and Curettage completed [facility] 11/28/2023 16:09:31 02/28/19 04 Dilation and Curettage completed [facility] 11/28/2023 16:08:51 12/14/19 02 section completed [facility] 11/28/2023 16:11:50 02/28/19 02 Dilation and Curettage completed [facility] 11/28/2023 16:08:39 02/28/19 01 Dilation and Curettage completed [facility] 11/28/2023 16:07:47 02/28/19 00 Dilation and Curettage completed [facility] 11/28/2023 16:07:42 02/28/19 00 Laparoscopy completed [facility] 11/28/2023 16:10:40 02/28/18 98 Dilation and Curettage completed [facility] 11/28/2023 16:07:26 02/28/18 97 Dilation and Curettage completed [facility] 11/28/2023 16:08:04 02/28/18 96 Dilation and Curettage completed [facility] 11/28/2023 16:08:01 02/28/18 95 Dilation and Curettage completed [facility] 11/28/2023 16:08:27 02/28/18 94 Dilation and Curettage completed [facility] 11/28/2023 16:07:07 Imaging Results Imaging Date Name Status LastModified by Organization Details LastModified Time 12/08/2023 US, pelvis completed [email or web address] [place] [address], [place], [address], 12/08/2023 10:29:38 12/08/2023 US, [facility]vaginal [email or web address] [address], [place], [address], 12/08/2023 10:29:48 12/08/2023 US, pelvis completed [email or web address] [address], [place], [address], 12/08/2023 22:24:30 Procedure Notes None recorded. Medical Equipment None Reported. Allergies No known drug allergies Medications Name Sig Start Date Stop Date Status Note LastModified by Organization Details LastModified Time Mirena 21 mcg/24 hr (up to 8 years) 52 mg intrauter ine device active Prescrib ed Elsewher e: Yes [facility] By: [email or web address] trick En [...] Elsewher e: No Locat ion: Davin bentley [facility] odify By: kmkirkpa trick En counter [...] Prescrib ed Elsewher e: No Locat ion: [facility] M odify By: cmedical Encount er [...] Tobacco Smoking Status Never Smoker Ofelia Snyder [facility], [facility] 12/07/2023 12:05:33 What Is Your [...] Or The Highest Degree You Have Received? 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 No Information not available 12/07/2023 Do You Feel Stressed (tense, Restless, Nervous, Or Anxious, Or Unable To Sleep At Night)? [id number] Information not available 12/07/2023 Do You Use [...] Organization Details LastModified Time Mother Diabetes mellitus [email or web address] Not available 11/27 15:01:54 Mother Malignant tumor of cervix [email or web address] Not available 11/27 15:02:07 Father Diabetes mellitus [email or web address] Not available 11/27 15:01:54 Sister Diabetes mellitus [email or web address] Not available 11/27 15:01:54 Brother Diabetes mellitus [email or web address] Not available 11/27 15:01:55 Maternal Grandmother Diabetes mellitus [email or web address] Not available 11/27 15:01:55 Paternal Grandmother Diabetes mellitus [email or web address] Not available 11/27 15:01:55 Paternal Grandmother Malignant tumor of lung [email or web address] Not available 11/27 15:02:32 Maternal Grandfather Diabetes mellitus [email or web address] Not available 11/27 15:02:52 Paternal Grandfather Diabetes mellitus [email or web address] Not available 11/27 15:03:00 Medical History Condition Response Allergies (Food, seasonal, environmental ) N Other N Breast Cancer N Drug/Latex Allergies/Reactions N Blood Transfusion N Lung Disease N [...] Diagnosis/Indication Diagnosis SNOMED-CT Code Diagnosis ICD10 Code [id number] MD Divya Quezada [address] [address] 12/07/2023 11:45:14 12/07/2023 12:55:02 Menorrhagia [id number] N92.0 [id number] Odette De Leon [place] [address] [address] 12/08/2023 09:28:38 12/08/2023 09:52:58 Menorrhagia 908495660 N92.0 Health Concerns Section Related Observation LastModified by Organization Chan [email or web address] LastModified Time None Recorded Concern Status LastModified by Organization Details LastModified Time None Recorded Payers Encounter Date Sequence Insurance Name Policy Number Policy Astorga Covered Member ID Astorga Member ID Guarantor Name 12/08/2023 1 [facility] (MEDICAID HMO) [id number] Jaja Parry [id number] Jaja Parry OBGyn Episode No OBEpisode recorded.
--- OUTSIDE RECORDS SUMMARY | 2024-03-02 01:29 | XMS_ITS | Continuity of Care Document ---
Author Organization [facility] Address [address] [place] [address] Care Team Providers Care Secretary Of State Name Role Phone KALYANI PRESTON Primary Care Provider [phone] Assessment No assessment recorded. Plan of Treatment [...] OF IUD;Record ed Elsewhere: No Locatio n: [facility]: EHR Chroni c: N Practice ID: [id number] Billa ble Time: 03:30:00 PM Not Available [facility] 0 16:09:36 Insertion of intrauter ine contracep tive device Active 2012 INSERTION OF IUD;Record ed Elsewhere: No Locatio n: [facility]: EHR Chroni c: N Practice ID: [id number] Billa ble Time: 10:30:00 AM Not Available [facility] 0 16:09:36 Uses IUD (intraute rine device) contracep tion [id number] Active 2013 Surveillan ce of intrauteri ne contracept torsten device;Rec orded Elsewhere: No Locatio n: [facility]: EHR Chroni c: N Practice ID: [id number] Billa ble Time: 04:00:00 PM Not Available [facility] 0 16:09:36 Screening for malignant neoplasm of cervix Active 2012 Screening for malignant neoplasms of the cervix;Rec orded Elsewhere: No Locatio n: [facility]: EHR Chroni c: N Practice ID: [id number] Billa ble Time: 09:00:00 AM Not Available [facility] 0 16:09:36 Specializ ed medical examinati on Active 2012 Gynecologi isela Examinatio n;Recorded Elsewhere: No Locatio n: [facility]: EHR Chroni c: N Practice ID: [id number] Billa ble Time: 09:00:00 AM Not Available [facility] 0 16:09:36 test negative [id number] Active 2012 examinatio n or test, negative result;Rec orded Elsewhere: No Locatio n: [facility]: EHR Chroni c: N Practice ID: [id number] Billa ble Time: 10:30:00 AM Not Available [facility] 0 16:09:36 Problem Notes None recorded. Procedures Surgical History Date Name Laterality Status Provider Name and Address Organization Details Recorded Time 02/24/20 24 ROBOTIC ASSISTED HYSTERECTOMY W/BILATERAL SALPINGO-OOPHORECT TYLER (SURG) completed Jacquelin Thomson [facility] 02/24/2024 12:06:20 04/01/19 23 Date of Last Pap Smear completed Taniya Niño [facility] 11/28/2023 14:54:49 02/28/19 21 cholecystectomy completed Taniya Niño [facility] 11/28/2023 16:10:10 10/20/19 08 Dilation and Curettage completed Taniya Niño [facility] 11/28/2023 16:09:48 10/12/19 08 Colposcopy completed Taniya Niño [facility] 11/28/2023 16:12:36 10/12/19 08 LEEP completed [facility] 11/28/2023 16:10:55 08/29/19 08 Colposcopy completed [facility] 11/28/2023 16:11:08 02/28/19 06 Dilation and Curettage completed [facility] 11/28/2023 16:09:09 02/28/19 05 Dilation and Curettage completed [facility] 11/28/2023 16:09:31 02/28/19 04 Dilation and Curettage completed [facility] 11/28/2023 16:08:51 12/14/19 02 section completed [facility] 11/28/2023 16:11:50 02/28/19 02 Dilation and Curettage completed [facility] 11/28/2023 16:08:39 02/28/19 01 Dilation and Curettage completed [facility] 11/28/2023 16:07:47 02/28/19 00 Dilation and Curettage completed [facility] 11/28/2023 16:07:42 02/28/19 00 Laparoscopy completed [facility] 11/28/2023 16:10:40 02/28/18 98 Dilation and Curettage completed [facility] 11/28/2023 16:07:26 02/28/18 97 Dilation and Curettage completed [facility] 11/28/2023 16:08:04 02/28/18 96 Dilation and Curettage completed [facility] 11/28/2023 16:08:01 02/28/18 95 Dilation and Curettage completed Taniya Niño [facility] 11/28/2023 16:08:27 02/28/18 94 Dilation and Curettage completed Taniya Niño [facility] 11/28/2023 16:07:07 Imaging Results None recorded. Procedure Notes None recorded. Medical Equipment None Reported. Allergies No known drug allergies Medications Name Sig Start Date Stop Date Status Note LastModified by Organization Details LastModified Time Mirena 21 mcg/24 hr (up to 8 years) 52 mg intrauter ine device active Prescrib ed Elsewher e: Yes Loca tion: [facility] By: [email or web address] trick En counter DateTime : 02/10/20 13 10:30:00 AM Not Available Not Available Not Available hydrocodo ne 5 mg-acetam inophen 325 mg tablet 2023 active Not Available Not Available Not Avai lable Flagyl 500 mg tablet take 1 tablet (500MG) by oral route every 12 hours for 10 days 03/12 completed Prescrib ed Elsewher e: No Locat ion: [facility] By: [email or web address] En counter DateTime [...] Prescrib ed Elsewher e: No Locat ion: [facility] By: [email or web address] Encount er DateTime : [...] Updated DateTime 02/13/2024 172.72 cm 40.3 kg/m2 822899.9 8 g 144 mm[Hg] 96 mm[Hg] Hiwot Prescott [facility] 09:41:17 Social History Question Answer Notes LastModified by Organizat ion Details LastModified Time Tobacco Smoking Status Never Smoker Ofelia Snyder adria, [facility] 12/07/2023 12:05:33 What Is Your Level [...] Or The Highest Degree You Have Received? 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 No Information not available 12/07/2023 Do You Feel Stressed (tense, Restless, Nervous, Or Anxious, Or Unable To Sleep At Night)? [id number] Information not available 12/07/2023 Do You Use [...] Organization Details LastModified Time Mother Diabetes mellitus [email or web address] Not available 11/27 15:01:54 Mother Malignant tumor of cervix [email or web address] Not available 11/27 15:02:07 Father Diabetes mellitus [email or web address] Not available 11/27 15:01:54 Sister Diabetes mellitus [email or web address] Not available 11/27 15:01:54 Brother Diabetes mellitus [email or web address] Not available 11/27 15:01:55 Maternal Grandmother Diabetes mellitus [email or web address] Not available 11/27 15:01:55 Paternal Grandmother Diabetes mellitus [email or web address] Not available 11/27 15:01:55 Paternal Grandmother Malignant tumor of lung [email or web address] Not available 11/27 15:02:32 Maternal Grandfather Diabetes mellitus Not available 11/27 15:02:52 Paternal Grandfather Diabetes mellitus [email or web address] Not available 11/27 15:03:00 Medical History Condition Response Allergies (Food, seasonal, environmental ) N Other N Drug/Latex Allergies/Reactions N Blood Transfusion N Breast Cancer N Dermatologic Disorders N Lung Disease N [...] Diagnosis/Indication Diagnosis SNOMED-CT Code Diagnosis ICD10 Code [id number] Josse Gillespie MD [place] [address] [address] 02/13/2024 09:29:03 02/14/2024 07:03:17 Menorrhagia [id number] N92.0 Health Concerns Section Related Observation LastModified by Organization Detai ls LastModified Time None Recorded Concern Status LastModified by Organization Details LastModified Time None Recorded Payers Encounter Date Sequence Insurance Name Policy Number Policy Astorga Covered Member ID Astorga Member ID Guarantor Name 02/13/2024 1 [facility] (MEDICAID HMO) [id number] Jaja Parry [id number] Jaja Parry Notes Date Note Type Note [...] infection. Josse Gillespie MD [address] [place], [address], [facility] 02/13/2024 21:10:33 OBGyn Episode No OBEpisode recorded.
--- OUTSIDE RECORDS SUMMARY | 2024-03-02 01:29 | XMS_ITS | Data Portability ---
Author Organization [facility] [place] Address [address] [place] [address] [place] [address] Care Team Providers Care Retail Sales Consultant Name Role Phone KALYANI PRESTON Primary Care Provider [phone] Assessment No assessment recorded. Plan of Treatment Reminders Order Date Submit Date Provider Last Modified By Organization Details Last Modified Time Details Appointments None recorded. Lab None recorded. Referral None recorded. Procedures None recorded. Surgeries robotic assisted hysterectom y w/bilateral salpingo-oo phorectomy (SURG) 2023 [facility] Surgery [facility], [address], [place], [address], 12:05:32 Imaging US, pelvis 2023 [email or web address] [address] [place], [address], [place], [address], 14:34:58 US, transvagina l 2023 [email or web address] [address] [place], [address], [place], [address], 14:34:58 Medication Orders None recorded. Patient TargetsNo targets recorded. Patient InstructionsNo instructions recorded. Reason for Referral None Reported. Results Created Date Observation Date Name Description Value Unit Range Abnormal Flag Note LastModifiedBy Organization Detail LastModifiedTime 12/08/19 24 12/08/2023 US, migdalia browning No observ ation record ed. [email or web address] [place] [address], [place], [address], 12/08/2023 10:29:38 12/08/19 24 12/08/2023 US, trans vagin al No observ ation record ed. [email or web address] [place] [address], [place], [address], 12/08/2023 10:29:48 12/08/19 24 12/08/2023 US, pelvi s No observ ation record ed. [email or web address] [address], [place], [address], 12/08/2023 22:24:30 Result Notes None recorded. Problems Name Problem SNOMED Code Status Onset Date Resolution Date Notes Provider Name and Address Organization Details Recorded Time Removal of intrauter ine device Active 2012 REMOVAL OF IUD;Record ed Elsewhere: No Locatio n: [facility] rce: EHR Chroni c: N Practice ID: 0001 Billa ble Time: 03:30:00 PM Not Available [facility] 0 16:09:36 Insertion of intrauter ine contracep tive device Active 2012 INSERTION OF IUD;Record ed Elsewhere: No Locatio n: [facility] rce: EHR Chroni c: N Practice ID: 0001 Billa ble Time: 10:30:00 AM Not Available [facility] 0 16:09:36 Uses IUD (intraute rine device) contracep ti [id number] Active 2013 Surveillan ce of intrauteri ne contracept torsten device;Rec orded Elsewhere: No Locatio n: [facility] rce: EHR Chroni c: N Practice ID: 0001 Billa ble Time: 04:00:00 PM Not Available [facility] 0 16:09:36 Screening for malignant neoplasm of cervix Active 2012 Screening for malignant neoplasms of the cervix;Rec orded Elsewhere: No Locatio n: [facility] rce: EHR Chroni c: N Practice ID: 0001 Billa ble Time: 09:00:00 AM Not Available [facility] 0 16:09:36 Specializ ed medical examinati on Active 2012 Gynecologi isela Examinatio n;Recorded Elsewhere: No Locatio n: [facility] rce: EHR Chroni c: N Practice ID: 0001 Billa ble Time: 09:00:00 AM Not Available [facility] 0 16:09:36 test negative [id number] Active 2012 examinatio n or test, negative result;Rec orded Elsewhere: No Locatio n: [facility] rce: EHR Chroni c: N Practice ID: 0001 Billa ble Time: 10:30:00 AM Not Available [facility] 0 16:09:36 Problem Notes None recorded. Procedures Surgical History Date Name Laterality Status Provider Name and Address Organization Details Recorded Time 02/24/20 24 ROBOTIC ASSISTED HYSTERECTOMY W/BILATERAL SALPINGO-OOPHORECT TYLER (SURG) completed Jacquelin Thomson [facility] 02/24/2024 12:06:20 04/01/19 23 Date of Last Pap Smear completed Taniya Niño [facility] 11/28/2023 14:54:49 02/28/19 21 cholecystectomy completed Taniya Niño [facility] 11/28/2023 16:10:10 10/20/19 08 Dilation and Curettage completed Taniya Niño [facility] 11/28/2023 16:09:48 10/12/19 08 Colposcopy completed Taniya Niño [facility] 11/28/2023 16:12:36 10/12/19 08 LEEP completed Taniya Niño [facility] 11/28/2023 16:10:55 08/29/19 08 Colposcopy completed Taniyarandi Niño [facility] 11/28/2023 16:11:08 02/28/19 06 Dilation and Curettage completed [facility] 11/28/2023 16:09:09 02/28/19 05 Dilation and Curettage completed [facility] 11/28/2023 16:09:31 02/28/19 04 Dilation and Curettage completed [facility] 11/28/2023 16:08:51 12/14/19 02 section completed [facility] 11/28/2023 16:11:50 02/28/19 02 Dilation and Curettage completed [facility] 11/28/2023 16:08:39 02/28/19 01 Dilation and Curettage completed [facility] 11/28/2023 16:07:47 02/28/19 00 Dilation and Curettage completed [facility] 11/28/2023 16:07:42 02/28/19 00 Laparoscopy completed [facility] 11/28/2023 16:10:40 02/28/18 98 Dilation and Curettage completed [facility] 11/28/2023 16:07:26 02/28/18 97 Dilation and Curettage completed [facility] 11/28/2023 16:08:04 02/28/18 96 Dilation and Curettage completed [facility] 11/28/2023 16:08:01 02/28/18 95 Dilation and Curettage completed [facility] 11/28/2023 16:08:27 02/28/18 94 Dilation and Curettage completed [facility] 11/28/2023 16:07:07 Imaging Results Imaging Date Name Status LastModified by Organization Details LastModified Time 12/08/2023 US, pelvis completed [email or web address] [place] [address], [place], [address], 12/08/2023 10:29:38 12/08/2023 [email or web address] [address], [place], [address], 12/08/2023 10:29:48 12/08/2023 US, pelvis completed [email or web address] [address], [place], [address], 12/08/2023 22:24:30 Procedure Notes None recorded. Medical Equipment None Reported. Allergies No known drug allergies Medications Name Sig Start Date Stop Date Status Note LastModified by Organization Details LastModified Time Mirena 21 mcg/24 hr (up to 8 years) 52 mg intrauter ine device active Prescrib ed Elsewher e: Yes Loca tion: [facility] odify By: [email or web address] trick En counter DateTime : 02/10/20 13 10:30:00 AM Not Available Not Available Not Available hydrocodo ne 5 mg-acetam inophen 325 mg tablet 2023 active Not Available Not Available Not Avai lable Flagyl 500 mg tablet take 1 tablet (500MG) by oral route every 12 hours for 10 days 03/12 completed Prescrib ed Elsewher e: No Locat ion: [facility] odify By: [email or web address] trick En counter [...] to the affected area(s) 03/08 completed Prescrib thomas Ocampo e: No Locat ion: [facility] M odify By: [email or web address] Encount er DateTime [...] Address Organization Details Last Updated DateTime 12/07/2023 440682.5 8 g 39.5 kg/m2 172.72 cm 115 mm[Hg] 80 mm[Hg] Ofelia Snyder [facility] 4 12:03:11 Date Recorded Body height Body mass index (BMI) Body weight Systolic blood pressure Diastolic blood pressure Provider Name and Address Organization Details Last Updated DateTime 12/13/2023 172.72 cm 38.9 kg/m2 209727.6 5 g 126 mm[Hg] 86 mm[Hg] Hiwot Prescott [facility] 4 09:35:00 Date Recorded Body height Body mass index (BMI) Body weight Systolic blood pressure Diastolic blood pressure Provider Name and Address Organization Details Last Updated DateTime 02/13/2024 172.72 cm 40.3 kg/m2 508794.9 8 g 144 mm[Hg] 96 mm[Hg] Hiwot Picketter [facility] 4 09:41:17 Date Recorded Body height Body mass index (BMI) Body weight Systolic blood pressure Diastolic blood pressure Provider Name and Address Organization Details Last Updated DateTime 03/01/2024 172.72 cm 39.2 kg/m2 053158.8 3 g 148 mm[Hg] 89 mm[Hg] Hiwot Kenyon [facility] 5 15:46:12 Social History Question Answer Notes LastModified by Organizat ion Details LastModified Time Tobacco Smoking Status Never Smoker Ofelia Snyder adria, [facility] 12/07/2023 12:05:33 What Is [...] Or The Highest Degree You Have Received? 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 No Information not available 12/07/2023 Do You Feel Stressed (tense, Restless, Nervous, Or Anxious, Or Unable To Sleep At Night)? [id number] Information not available 12/07/2023 Do You Use [...] Organization Details LastModified Time Mother Diabetes mellitus Not available 11/27 15:01:54 Mother Malignant tumor of cervix [email or web address] Not available 11/27 15:02:07 Father Diabetes mellitus [email or web address] Not available 11/27 15:01:54 Sister Diabetes mellitus [email or web address] Not available 11/27 15:01:54 Brother Diabetes mellitus Not available 11/27 15:01:55 Maternal Grandmother Diabetes mellitus [email or web address] Not available 11/27 15:01:55 Paternal Grandmother Diabetes mellitus Not available 11/27 15:01:55 Paternal Grandmother Malignant tumor of lung [email or web address] Not available 11/27 15:02:32 Maternal Grandfather Diabetes mellitus [email or web address] Not available 11/27 15:02:52 Paternal Grandfather Diabetes mellitus [email or web address] Not available 11/27 15:03:00 Medical History Condition [...] Diagnosis/Indication Diagnosis SNOMED-CT Code Diagnosis ICD10 Code 110466 Josse Gillespie MD [place] [address],[facility] [place] [address] 12/07/2023 11:45:14 12/07/2023 12:55:02 Menorrhagia 730495233 N92.0 [id number] Odette De Leon [place] [address],[facility] [place] [address] 12/08/2023 09:28:38 12/08/2023 09:52:58 Menorrhagia 166150004 N92.0 [id number] Josse Gillespie MD [place] [address],[facility] [place] [address] 12/13/2023 09:31:22 12/13/2023 12:40:55 Menorrhagia 187508245 N92.0 Family his tory of malignant neoplasm of ovary 851518213 Z80.41 [id number] Josse Gillespie MD [place] [address] [address] 02/13/2024 09:29:03 02/14/2024 07:03:17 Menorrhagia 214382218 N92.0 [id number] Josse Gillespie MD [place] [address],[facility] [place] [address] 03/01/2024 15:10:13 03/01/2024 18:27:48 Postoperative care 062575543 Z48.89 Health Concerns Section Related Observation LastModified by Organization Detai ls LastModified Time None Recorded Concern Status LastModified by Organization Details LastModified Time None Recorded Advance Directives Directive None Recorded Payers Encounter Date Sequence Insurance Name Policy Number Policy Astorga Covered Member ID Astorga Member ID Guarantor Name 12/07/2023 1 [facility] (MEDICAID HMO) [id number] Jaja Parry [id number] Jaja Parry 12/08/2023 1 [employer] [facility] [facility] [place] [id number] Jaja Parry [id number] Jaja Parry 12/13/2023 1 [employer] [facility] [place] [id number] Jaja Parry [id number] Jaja Parry 02/13/2024 1 [employer] [facility] [place] [id number] Jaja Parry [id number] Jaja Parry 03/01/2024 1 [employer] [facility] [place] [id number] 0003 Jaja Parry [id number] Jaja Parry Notes Date Note Type Note [...] on her care. Josse Gillespie MD [address], [place], [address], [facility] 12/07/2023 12:54:55 12/13/2023 text/html This patient is a 43-year-old [...] agreed to robotic assisted hysterectomy with bilateral salpingo-oophorecto my. The patient understands the procedure. The procedure [...] infection. Josse Gillespie MD [address], [place], [address], [facility] 12/13/2023 12:34:48 02/13/2024 text/html this patient is a 43-year-old female with severe menorrhagia. We have agreed to perform robotic assisted hysterectomy with bilateral salpingo-oophorecto my. The patient understands the procedure. The procedure [...] infection. Josse Gillespie MD [address], [place], [address], [facility] 02/13/2024 21:10:33 03/01/2024 text/html female Patient presents for postop follow-up. She is 1 week postop from a total robotic hysterectomy bilateral salpingectomy and left oophorectomy . She has no complaints. Her incisions are clean dry and intact. She is recovering normally. She will follow-up as needed. Josse Gillespie MD [address], [place], [address], [facility] 03/01/2024 18:27:47 OBGyn Episode Ob Episode Information Episode Created Date Number of Fetuses Patient Bloodtype Patient rh Status Prepregnancy Weight lbs Domestic Partner Domestic Partner Phone Father Name Jewelry Polisher Status 11/28/19 24 1 CLOSED Fetus Data First Name Last Name Admitted to NICU Weight (g) Sex Living Outcome Pediatric Complications Fetus ID Race Codes Race Delivery Type Ectopic [id number] Ludivina Calculation LUDIVINA Calculation Method Initial Ludivina Date Initial Exam Date Initial Exam Provider Initial Ultrasound Date Last Menstrual Period Date Ultra Sound Weeks Gestation Conception by IVF Embryo Age at Transfer Date of Transfer 0 Eighteen To Twenty Week Ludivina Update Ultra Sound Date Fundal Height At Umbil Quickening Date Ultra Sound Latest Weeks Gestation Final Ludivina Confirmed By Final Ludivina Confirmed Date Final Ludivina Date Ultra Sound Latest Days Gestation 0 0 Menstrual History Last Menstrual Date Menses Monthly On Bcp Conception Prior Menses Frequency Hcg Plus Date Menarche Onset Age Delivery Information Delivery Date Delivery Type Labor Anesthesia Weeks Gestation Incision Type Labor Labor Length Hrs Delivered By Post Complications Tubal Sterilization Discharge Date Comments 0 Discharge Information Feeding Method Contraceptive Method Maternal HG B and HCT Levels Ob Episode Information Episode Created Date Number of Fetuses Patient Bloodtype Patient rh Status Prepregnancy Weight lbs Domestic Partner Domestic Partner Phone Father Name Jewelry Polisher Status 11/28/19 24 1 CLOSED Fetus Data First Name Last Name Admitted to NICU Weight (g) Sex Living Outcome Pediatric Complications Fetus ID Race Codes Race Delivery Type 4309.12 4 M Full Term [id number] Vaginal Delivery Ludivina Calculation LUDIVINA Calculation Method Initial Ludivina Date Initial Exam Date Initial Exam Provider Initial Ultrasound Date Last Menstrual Period Date Ultra Sound Weeks Gestation Conception by IVF Embryo Age at Transfer Date of Transfer 0 Eighteen To Twenty Week Ludivina Update Ultra Sound Date Fundal Height At Umbil Quickening Date Ultra Sound Latest Weeks Gestation Final Ludivina Confirmed By Final Ludivina Confirmed Date Final Ludivina Date Ultra Sound Latest Days Gestation 0 0 Menstrual History Last Menstrual Date Menses Monthly On Bcp Conception Prior Menses Frequency Hcg Plus Date Menarche Onset Age Delivery Information Delivery Date Delivery Type Labor Anesthesia Weeks Gestation Incision Type Labor Labor Length Hrs Delivered By Post Complications Tubal Sterilization Discharge Date Comments 7 40 Discharge Information Feeding Method Contraceptive Method Maternal HG B and HCT Levels Ob Episode Information Episode Created Date Number of Fetuses Patient Bloodtype Patient rh Status Prepregnancy Weight lbs Domestic Partner Domestic Partner Phone Father Name Jewelry Polisher Status 11/28/19 24 1 CLOSED Fetus Data First Name Last Name Admitted to NICU Weight (g) Sex Living Outcome Pediatric Complications Fetus ID Race Codes Race Delivery Type 4195.72 6 M Full Term [id number] Primary Ludivina Calculation LUDIVINA Calculation Method Initial Ludivina Date Initial Exam Date Initial Exam Provider Initial Ultrasound Date Last Menstrual Period Date Ultra Sound Weeks Gestation Conception by IVF Embryo Age at Transfer Date of Transfer 0 Eighteen To Twenty Week Ludivina Update Ultra Sound Date Fundal Height At Umbil Quickening Date Ultra Sound Latest Weeks Gestation Final Ludivina Confirmed By Final Ludivina Confirmed Date Final Ludivina Date Ultra Sound Latest Days Gestation 0 0 Menstrual History Last Menstrual Date Menses Monthly On Bcp Conception Prior Menses Frequency Hcg Plus Date Menarche Onset Age Delivery Information Delivery Date Delivery Type Labor Anesthesia Weeks Gestation Incision Type Labor Labor Length Hrs Delivered By Post Complications Tubal Sterilization Discharge Date Comments 2 40 Discharge Information Feeding Method Contraceptive Method Maternal HG B and HCT Levels
== END 2024-02-25 10:22 | disposition home or self-care (01) ==
LOC: ANHSURGERY 06:09 → ANHOB2 11:37
PROVIDERS: PCP Physician Assistant; Visit Provider Obstetrics & Gynecology
PROC: (CPT 58571; principal; 2024-02-24 07:30)
DX: N80.03 Adenomyosis of the uterus (principal); N72 Inflammatory disease of cervix uteri; N88.8 Other specified noninflammatory disorders of cervix uteri; N83.8 Other noninflammatory disorders of ovary, fallopian tube and broad ligament; G89.18 Other acute postprocedural pain; I10 Essential (primary) hypertension; E66.01 Morbid (severe) obesity due to excess calories; Z68.41 Body mass index [BMI] 40.0-44.9, adult; Z98.890 Other specified postprocedural states; Z90.49 Acquired absence of other specified parts of digestive tract; Z80.3 Family history of malignant neoplasm of breast; Z80.49 Family history of malignant neoplasm of other genital organs
CPT/HCPCS: 58571; S2900; 88307; 99199; A9270; J0690; J1100; J1171; J1885; J2003; J2250; J2405; J2704; J3010; J7030; J7120; Q9968

== ENCOUNTER 2024-05-05 10:23 | Emergency (ER) | payer OTHER, SELFPAY ==
--- NOTE | ~2024-05-05 | XR_ITS ---
EXAMINATION: XR tibia fibula RT 2V DATE: 05/05/2024 11:58 INDICATION: Right lower leg pain. TECHNIQUE: 2 views of the right tibia and fibula on 3 radiographs were obtained. COMPARISON: None. FINDINGS: Alignment is normal. No fracture. Joint spaces are normal. IMPRESSION: 1. Normal right tibia and fibula. Reviewed, dictated and finalized at location A. L ROASTER
--- NOTE | ~2024-05-05 | US_ITS ---
EXAMINATION: US venous doppler LE RT DATE: 05/05/2024 12:21 INDICATION: Right lower limb swelling. TECHNIQUE: Grayscale ultrasound images without and with compression and Doppler ultrasound images of the right lower extremity veins were obtained. COMPARISON: None. FINDINGS: The visualized portions of right common femoral vein, profunda (deep) femoral vein, femoral vein, pop liteal vein, peroneal veins, posterior tibial veins, and greater saphenous vein outflow are patent. IMPRESSION: 1. No deep venous thrombosis. Reviewed, dictated and finalized at location A. [employer]
--- OUTSIDE RECORDS SUMMARY | 2024-05-05 10:25 | XMS_ITS | CONTINUITY OF CARE DOCUMENT ---
Author Name shyla mansfield Address Unknown Organization [facility] Address [address] [place] [address] Phone [phone] Care Team Providers Care Radiotelegrapher Name Role Phone shyla mansfield Unavailable Unavailable INSURANCE PROVIDERS Payer name Policy type / Coverage type Roland red constitution party ID [id number] MEDICAID (2) Medicaid [id number]
--- OUTSIDE RECORDS SUMMARY | 2024-05-05 10:25 | XMS_ITS | Data Portability ---
Author Organization [facility] Address [address] [address] Care Team Providers Care Egg Smeller Name Role Phone KALYANI PRESTON Primary Care Provider [phone] Assessment No assessment recorded. Plan of Treatment Reminders Order Date Submit Date Provider Last Modified By Organization Details Last Modified Time Details Appointments ANXIETY/D EPRESSION 2024 09:30A Joshua GILLESPIE MD Not available Not available Not available MED CHECK 2024 09:00A Joshua GILLESPIE MD Not available Not available Not available Lab urinalysi s, dipstick 2024 025 [email or web address] [facility] [address], [address], [place], [address], 03/13/2024 16:17:41 Referral None recorded. Procedures None recorded. Surgeries robotic assisted hysterect avis w/bilater al salpingo- oophorect avis (SURG) 2023 024 [facility] [place], [address], [place], [address], 02/24/2024 12:05:32 Imaging None recorded. Medication Orders Macrobid 100 mg capsule 2024 025 [place] [id number], [address] [facility], [place], [place], [id number], 05/03/2024 09:21:27 Patient TargetsNo targets recorded. Patient InstructionsNo instructions recorded. Reason for Referral None Reported. Results Created Date Observation Date Name Description Value Unit Range Abnormal Flag Note LastModifiedBy Organization Detail LastModifiedTime 03/13/1903/13/2024 CULTU RE: URINE result report SEE RESULT S BELOW Test: Cultu re: Urine Speci men Sourc e: Urine - Clean Catch Speci men Type: Urine Speci men Date: 2024 1533 Resul t Date: 2024 2250 Resul t Statu s: Final resul t Abnor mal: No Resul ting Lab: [facility] [address] [facility] [address] Tel: CULTU RE ----- ----- ----- --- No growt h in 1 day (dete ction level of 10,00 0 colon ies / ml.) Not Available [facility] (Lab) [address] [facility], [place], [address], 03/14/2024 23:53:55 03/13/19 25 03/13/2024 urina lysis , dipst ick Leukocytes + Not Available [facility] arielle [address], [place], [address], 03/13/2024 16:16:30 03/13/19 25 03/13/2024 urina lysis , dipst ick Nitrite - Not Available [facility] [address], [place], [address], 03/13/2024 16:16:30 03/13/19 25 03/13/2024 urina lysis , dipst ick Protein ++ Not Available [facility] [address], [place], [address], 03/13/2024 16:16:30 03/13/19 25 03/13/2024 urina lysis , dipst ick pH 6 Not Available [facility] [address], [place], [address], 03/13/2024 16:16:30 03/13/19 25 03/13/2024 urina lysis , dipst ick Blood ++ Not Available [facility] [address], [place], [address], 03/13/2024 16:16:30 03/13/19 25 03/13/2024 urina lysis , dipst ick Specific [place] 1.025 Not Available [facility] bradley [address], [place], [address], 03/13/2024 16:16:30 03/13/19 25 03/13/2024 urina lysis , dipst ick Appearance clear Not Available [facility] [address], [place], [address], 03/13/2024 16:16:30 03/13/19 25 03/13/2024 urina lysis , dipst ick Color Dark Yellow Not Available [facility] [address], [place], [address], 03/13/2024 16:16:30 12/08/19 24 12/08/2023 US, pelvi s No observ ation record ed. [email or web address] [place] [address] [address], [place], [address], 12/08/2023 10:29:38 12/08/19 24 12/08/2023 US, trans vagin al No observ ation record ed. [email or web address] [address] [place] [address] [address], [place], [address], 12/08/2023 10:29:48 12/08/19 24 12/08/2023 US, pelvi s No observ ation record ed. [email or web address] [address], [place], [address], 12/08/2023 22:24:30 Result Notes None recorded. Problems Name Problem SNOMED Code Status Onset Date Resolution Date Notes Provider Name and Address Organization Details Recorded Time Hypertensive disorder 78096506 Active 2024 Taniya covington [facility] 5 10:52:06 Migraine 19927541 Active 2024 Taniya covington [facility] 10:52:11 Problem Notes None recorded. Procedures Surgical History Date Name Laterality Status Provider Name and Address Organization Details Recorded Time 02/24/20 24 ROBOTIC ASSISTED HYSTERECTOMY W/BILATERAL SALPINGO-OOPHORECT AVIS (SURG) completed Jacquelin Thomson [facility] 02/24/2024 12:06:20 04/01/19 23 Date of Last Pap Smear completed Taniya Niño [facility] 11/28/2023 14:54:49 02/28/19 21 cholecystectomy completed Taniyarandi Niño [facility] 11/28/2023 16:10:10 10/20/19 08 Dilation and Curettage completed Taniyarandi Niño [facility] 11/28/2023 16:09:48 10/12/19 08 Colposcopy completed Taniyarandi Niño [facility] 11/28/2023 16:12:36 10/12/19 08 LEEP completed [facility] 11/28/2023 16:10:55 08/29/19 08 Colposcopy completed Taniyarandi Niño [facility] 11/28/2023 16:11:08 02/28/19 06 [facility] 11/28/2023 16:09:09 02/28/19 05 Dilation and Curettage completed [facility] 11/28/2023 16:09:31 02/28/19 04 [facility]ilation [facility]tt[facility] 11/28/2023 16:08:51 12/14/19 02 section completed [facility] 11/28/2023 16:11:50 02/28/19 02 Dilation and Curettage completed [facility] 11/28/2023 16:08:39 02/28/19 01 Dilation and Curettage completed [facility] 11/28/2023 16:07:47 02/28/19 00 Dilation and Curettage completed [facility] 11/28/2023 16:07:42 02/28/19 00 Laparoscopy completed [facility] 11/28/2023 16:10:40 02/28/18 98 Dilation and Curettage completed [facility] 11/28/2023 16:07:26 02/28/18 97 Dilation and Curettage completed [facility] 11/28/2023 16:08:04 02/28/18 96 Dilation and Curettage completed [facility] 11/28/2023 16:08:01 02/28/18 95 Dilation and Curettage completed [facility] 11/28/2023 16:08:27 02/28/18 94 Dilation and Curettage completed [facility] 11/28/2023 16:07:07 Imaging Results Imaging Date Name Status LastModified by Organization Details LastModified Time 12/08/2023 US, pelvis completed jose guadalupe Stokes [address], [place], [address], 12/08/2023 10:29:38 12/08/2023 US, transvaginal completed [email or web address] Bill[address], [place], [address], 12/08/2023 10:29:48 12/08/2023 US, pelvis completed [email or web address] [address], [place], [address], 12/08/2023 22:24:30 Procedure Notes None recorded. Medical Equipment None Reported. Allergies No known drug allergies Medications Name Sig Start Date Stop Date Status Note LastModified by Organization Details LastModified Time Mirena 21 mcg/24 hr (up to 8 years) 52 mg intrauter ine device 03/13 completed Prescrib ed Elsewher e: Yes [facility] By: [email or web address] trick En counter DateTime : 02/10/20 13 10:30:00 AM Not Available Not Available Not Available hydrocodo ne 5 mg-acetam inophen 325 mg tablet 2023 active Not Available Not Available Not Avai lable Flagyl 500 mg tablet take 1 tablet (500MG) by oral route every 12 hours for 10 days 03/12 completed Prescrib ed Elsewher e: No [facility] odify By: [email or web address] En counter DateTime : 03/08/19 02:52:07 PM Not Available Not Available Not Available methylpre dnisolone 8 mg tablet 12/06 completed Not Available Not Available Not Available oseltamiv ir 75 mg capsule 12/06 completed Not Available Not Available Not Available triamcino lone acetonide 0.1 % topical ointment 03/13 completed Not Available Not Available Not Available nystatin 100,000 unit/gram topical cream 03/13 completed Not Available Not Available Not Available prednison e 50 mg tablet TAKE 1 TABLET BY MOUTH DAILY 12/06 completed Not Available Not Available Not Available Clindagel 1 % topical gel, once daily apply by topical route every day a thin layer to the affected area(s) 03/08 completed Prescrib ed Elsewher e: No Locat ion: [facility] odify By: [email or web address] Encount er DateTime : 02/10/20 13 10:30:00 AM Not Available Not Available Not Available hydrochlo rothiazid e 25 mg tablet TAKE 1 TABLET BY MOUTH EVERY DAY IN THE MORNING active Not Available Not Available No t Available amoxicill in 875 mg-potass ium clavulana te 125 mg tablet 12/06 completed Not Available Not Available Not Available Lexapro 20 mg tablet Take 1 tablet every day by oral route. 2024 active Not Available Not Available Not Avai lable nitrofura ntoin monohydra te/macroc rystals 100 mg capsule TAKE 1 CAPSULE BY MOUTH EVERY 12 HOURS FOR 7 DAYS 05/03 completed Not Available Not Available Not Available amitripty line active prn for migraine s Not Available Not Available Not Available Trulicity [...] Updated DateTime 12/13/2023 172.72 cm 38.9 kg/m2 590222.6 5 g 126 mm[Hg] 86 mm[Hg] [facility] 09[facility]00 Date Recorded Body height Body mass index (BMI) Body weight Systolic blood pressure Diastolic blood pressure Provider Name and Address Organization Details Last Updated DateTime 02/13/2024 172.72 cm 40.3 kg/m2 094139.9 8 g 144 mm[Hg] 96 mm[Hg] Hiwot [facility] 4 09:41:17 Date Recorded Body height Body mass index (BMI) Body weight Systolic blood pressure Diastolic blood pressure Provider Name and Address Organization Details Last Updated DateTime 03/01/2024 172.72 cm 39.2 kg/m2 665289.8 3 g 148 mm[Hg] 89 mm[Hg] Hiwot Kenyon [facility] 5 15:46:12 Date Recorded Body height Body mass index (BMI) Body weight Systolic blood pressure Diastolic blood pressure Provider Name and Address Organization Details Last Updated DateTime 03/13/2024 172.72 cm 39.5 kg/m2 598635.0 2 g 123 mm[Hg] 85 mm[Hg] Valery Werner [facility] 5 16:00:16 Date Recorded Body height Body mass index (BMI) Body weight Systolic blood pressure Diastolic blood pressure Provider Name and Address Organization Details Last Updated DateTime 05/05/2024 172.72 cm 40.1 kg/m2 598849.3 9 g 125 mm[Hg] 85 mm[Hg] Taniya Niño [facility] 5 10:51:19 Social History Question Answer Notes LastModified by Organizat ion Details LastModified Time Tobacco Smoking Status Never Smoker Ofelia covington, [facility] 12/07/2023 12:05:33 What Is Your [...] Or The Highest Degree You Have Received? 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 No Information not available 12/07/2023 Do You Feel Stressed (tense, Restless, Nervous, Or Anxious, Or Unable To Sleep At Night)? [id number] Information not available 12/07/2023 Do You Use [...] Organization Details LastModified Time Mother Diabetes mellitus [email or web address] Not available 11/27 15:01:54 Mother Malignant tumor of cervix [email or web address] Not available 11/27 15:02:07 Father Diabetes mellitus [email or web address] Not available 11/27 15:01:54 Sister Diabetes mellitus [email or web address] Not available 11/27 15:01:54 Brother Diabetes mellitus [email or web address] Not available 11/27 15:01:55 Maternal Grandmother Diabetes mellitus [email or web address] Not available 11/27 15:01:55 Paternal Grandmother Diabetes mellitus [email or web address] Not available 11/27 15:01:55 Paternal Grandmother Malignant tumor of lung [email or web address] Not available 11/27 15:02:32 Maternal Grandfather Diabetes mellitus [email or web address] Not available 11/27 15:02:52 Paternal Grandfather Diabetes mellitus [email or web address] Not available 11/27 15:03:00 Medical History Condition Response Allergies (Food, seasonal, environmental ) N Other N Blood Transfusion N Breast Cancer N Drug/Latex Allergies/Reactions N Dermatologic Disorders N Lung Disease N Defects or Inherited Disease N Breast Problem N Gestational Diabetes N Hematologic disorders N Anesthesia Complications N History of STI N Deep Vein Thrombosis N Polycystic ovary syndrome N Anxiety Disorder Y Autoimmune disease N Arthritis N Polyps N Infertility N Acid Reflux (GERD) N History of abnormal pap N Cancer N Varicosities N Stroke N Neurologic/Epilepsy N Endometriosis N High Cholesterol N Fibromyalgia N Headaches Y Kidney Disease N Heart Problems N Thyroid Problems N Kidney or Bladder Problems N GI Problems N Eating Disorder N Anemia N Art (IVF or FET) N Psychiatric Illness N Ovarian Cancer N Diabetes N Pulmonary (TB, Asthma) N Hepatitis/Liver Disease N No Past Medical History N Eczema N Urinary Tract Infection N Abuse/Domestic Violence N Asthma N Trauma/Violence N Depression/ depression Y Heart Disease N Pre-Eclampsia N Hypertension Y Osteoporosis N Thrombophilias N Gynecological History Statement/Question [...] SNOMED-CT Code Diagnosis ICD10 Code Diagnosis Note [id number] Josse Gillespie MD [facility] [address] [address] 12/07/2023 11:45:14 12/07/2023 12:55:02 Menorrhagia 675215240 N92.0 This patient is a 43-year-ol d female presents for heavy vaginal bleeding. She has longstandi ng very heavy bleeding. Her menses are regular. However, they require double protection . Patient has accidents, getting blood on her [...] candidate for hormone /estrogen containing treatment. Discussed endometria l ablation. Showed her the endometria l ablation video. Discussed risks, benefits, and alternativ es. Discussed hysterecto my. Discussed risks, benefits, and alternativ es. She will will obtain pelvic ultrasound and we will consider ablation versus hysterecto my. Spent over 30 minutes on her care. [id number] Odette De Leon [facility] [address] [address] 12/08/2023 09:28:38 12/08/2023 09:52:58 Menorrhagia 511438030 N92.0 This patient is a 43-year-ol d female presents for heavy vaginal bleeding. She has longstandi ng very heavy bleeding. Her menses are regular. However, they require double protection . Patient has accidents, getting blood on her [...] candidate for hormone /estrogen containing treatment. Discussed endometria l ablation. Showed her the endometria l ablation video. Discussed risks, benefits, and alternativ es. Discussed hysterecto my. Discussed risks, benefits, and alternativ es. She will will obtain pelvic ultrasound and we will consider ablation versus hysterecto my. Spent over 30 minutes on her care. [id number] Josse Gillespie MD [facility] [address] [address] 12/13/2023 09:31:22 12/13/2023 12:40:55 Menorrhagia 667231102 N92.0 This patient is a 43-year-ol d female presents for heavy vaginal bleeding. She has longstandi ng very heavy bleeding. Her menses are regular. However, they require double protection . Patient has accidents, getting blood on her [...] candidate for hormone /estrogen containing treatment. Discussed endometria l ablation. Showed her the endometria l ablation video. Discussed risks, benefits, and alternativ es. Discussed hysterecto my. Discussed risks, benefits, and alternativ es. She will will obtain pelvic ultrasound and we will consider ablation versus hysterecto my. Spent over 30 minutes on her care. Family his tory of malignant neoplasm of ovary [id number] Z80.41 [id number] Josse Gillespie MD [facility] [address] [address] 02/13/2024 09:29:03 02/14/2024 07:03:17 Menorrhagia 799106531 N92.0 This patient is a 43-year-ol d female with severe menorrhagi a. We have agreed to perform robotic assisted total hysterecto my bilateral salpingo-o ophorectom y. She understand s the risks, benefits, and alternativ es. She has completed the informed consent process and is ready to proceed. [id number] Josse Gillespie MD [facility] [address] [address] 03/01/2024 15:10:13 03/02/2024 06:39:47 Postoperative care [id number] Z48.89 female Patient presents for postop follow-up. She is 1 week postop from a total robotic hysterecto my bilateral salpingect avis and left oophorecto my . She has no complaints . Her incisions are clean dry and intact. She is recovering normally. She will follow-up as needed. [id number] MARLYN Donovan [facility] [address] [address] 03/13/2024 15:33:51 03/13/2024 16:30:30 Urinary symptoms 277108739 R39.9 UA/cx sentrx sent for presumptiv e UTI - r/b/a reviewedwi ll update pt with culture results when availablep recautions reviewed, to notify office with any worsening/ aditional symptoms, questions answered Patient is to contact office or go to nearest ED/Urgent care if fever >/= 100.1, pain, excessive bleeding, unusual drainage or swelling in area of concern; or experienci ng worsening sx's or new onset of concerning sx's. Understand ing verbalized . All questions answered to patient satisfacti on. Time spent in visit is a total of 18 mins with at least 50% of visit consisting of counseling and review of plan of care. Health Concerns Section Related Observation LastModified by Organization Detai ls LastModified Time None Recorded Concern Status LastModified by Organization Details LastModified Time None Recorded Advance Directives Directive None Recorded Payers Encounter Date Sequence Insurance Name Policy Number Policy [place] Covered Member ID Satorga Member ID Guarantor Name 12/13/2023 1 [facility] (MEDICAID HMO) [id number] Jaja Parry [id number] Jaja Parry 02/13/2024 1 [employer] [facility] [facility] [place] ([place] [id number] Jaja Parry [id number] Jaja Parry 03/01/2024 1 [employer] [facility] [place] [id number] Jaja Parry [id number] Jaja Parry 03/13/2024 1 [employer] [facility] [place] [id number] Jaja Parry [id number] Jaja Parry Notes Date Note Type Note [...] agreed to robotic assisted hysterectomy with bilateral salpingo-oophorectom y. The patient understands the procedure. The procedure [...] infection. Josse Gillespie MD [address], [place], [address], [facility] 12/13/2023 12:34:48 02/13/2024 text/html this patient is a 43-year-old female with severe menorrhagia. We have agreed to perform robotic assisted hysterectomy with bilateral salpingo-oophorectom y. The patient understands the procedure. The procedure [...] infection. Josse Gillespie MD [address], [place], [address], [facility] 02/13/2024 21:10:33 03/01/2024 text/html female Patient presents for postop follow-up. She is 1 week postop from a total robotic hysterectomy bilateral salpingectomy and left oophorectomy . She has no complaints. Her incisions are clean dry and intact. She is recovering normally. She will follow-up as needed. Josse Gillespie MD [address], [place], [address], [facility] 03/01/2024 18:27:47 03/13/2024 text/html 43yopresents for urinary symptomsurinary frequency/urgency and dysuriasymptoms started 3 days agopt is s/p robotic assisted hysterectomy with bilateral salpingo-oophorectom y neg n/v/fneg flu-like symptomsneg flank painsneg vaginal bleedingneg pelvic pain Vera Kuhn WHDENICE [address], [place], [address], [facility] 03/13/2024 16:25:57 OBGyn Episode Ob Episode Information Episode Created Date Number of Fetuses Patient Bloodtype Patient rh Status Prepregnancy Weight lbs Domestic Partner Domestic Partner Phone Father Name Cycle Manager Status 11/28/19 24 1 CLOSED Fetus Data First Name Last Name Admitted to NICU Weight (g) Sex Living Outcome Pediatric Complications Fetus ID Race Codes Race Delivery Type Ectopic [id number] Antony Calculation Initial Antony Date Initial Exam Date Initial Exam Provider Initial Ultrasound Date Last Menstrual Period Date Ultra Sound Weeks Gestation 0 Eighteen To Twenty Week Antony Update Ultra Sound Date Fundal Height At Umbil Quickening Date Ultra Sound Latest Weeks Gestation Final Antony Confirmed By Final Antony Confirmed Date Final Antony Date Ultra Sound Latest Days Gestation 0 [...] Domestic Partner Domestic Partner Phone Father Name Cycle Manager Status 11/28/19 24 1 CLOSED Fetus Data First Name Last Name Admitted to NICU Weight (g) Sex Living Outcome Pediatric Complications Fetus ID Race Codes Race Delivery Type 4309.12 4 M Full Term [id number] Vaginal Delivery Antony Calculation Initial Antony Date Initial Exam Date Initial Exam Provider Initial Ultrasound Date Last Menstrual Period Date Ultra Sound Weeks Gestation 0 Eighteen To Twenty Week Antony Update Ultra Sound Date Fundal Height At Umbil Quickening Date Ultra Sound Latest Weeks Gestation Final Antony Confirmed By Final Antony Confirmed Date Final Antony Date Ultra Sound Latest Days Gestation 0 [...] Domestic Partner Domestic Partner Phone Father Name Cycle Manager Status 11/28/19 24 1 CLOSED Fetus Data First Name Last Name Admitted to NICU Weight (g) Sex Living Outcome Pediatric Complications Fetus ID Race Codes Race Delivery Type 4195.72 6 M Full Term [id number] Primary Antony Calculation Initial Antony Date Initial Exam Date Initial Exam Provider Initial Ultrasound Date Last Menstrual Period Date Ultra Sound Weeks Gestation 0 Eighteen To Twenty Week Antony Update Ultra Sound Date Fundal Height At Umbil Quickening Date Ultra Sound Latest Weeks Gestation Final Antony Confirmed By Final Antony Confirmed Date Final Natony Date Ultra Sound Latest Days Gestation 0 [...]
--- OUTSIDE RECORDS SUMMARY | 2024-05-05 10:25 | XMS_ITS | Data Portability ---
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 PSG is medically necessary to determine the management of sleep apnea. We discussed with the patient the impact of weight on: Sleep disordered breathing Hypertension Plantar fasciitis We discussed with the patient the benefit of PAP therapy on: Sleep disordered breathing Headaches Hypertension Educated the patient on sleep hygiene measures. Relaxing rituals to rest easy, understanding foods with positive and negative impact on sleep, creating a peaceful sleep environment, timing of exercise, using herbal sleep aids, and practicing sleep-friendly meditation were covered. To determine how much sleep is needed, the patient will assess where she falls on the spectrum, examine what lifestyle factors such as work schedules and stress are affecting the quality and quantity of sleep. In general, adults need 7-9 hours of sleep. Educated the patient regarding foods that promote sleep. These include but are not limited to cherries, bananas, toast, oatmeal, and warm milk. Educated the patient regarding foods and drinks to avoid before bedtime. These include but are not limited to aged cheese, chocolate, spicy foods, tomato-based sauces, soy, ginseng tea and processed meat. Advocated influenza vaccination annually and pneumonia vaccination in 2030. Advocated weight loss through diet and exercise. Patient's ideal body weight according to height and gender is up to 150 lbs. Encouraged patient to adjust caloric intake to maintain/achieve ideal body weight, emphasizing on fruits, vegetables, whole grains, and fat-free or low-fat products. These include lean meats, poultry, fish, beans, eggs, and nuts and foods that are low in saturated fats, trans-fats, cholesterol, salt (sodium), and glycemic index. Stressed the importance of regular exercise up to the patient's capacity limits. In this case, we recommend 20 min daily walking, 2 days a week of resistance training. Patient to monitor BP daily and bring records to PCP for further management. Follow-up: 1 week after titration sleep study [email or web address] Not available 03/22/2024 14:46:43 04/04/2024 04/04/2024 Assessment: Early REM onset Mild OSAHS, AHI = 12 Plan: The following were reviewed and explained to the patient: [facility] home sleep study 03/20/24 AHI = 12, supine AHI = 28 [facility] titration sleep study 03/31/24 sleep onset = 7.5 minutes, REM onset = 80.5 minutes, Respironics medium DreamWear full face mask @ 8 cmH2O, PLMI = 0.0 Educated the patient on problems and solutions associated with positive airway pressure (PAP) use. Difficulty tolerating pressure, mask leaks, intolerance of interface, nasal congestion, claustrophobic response, dry mouth, and unintentional mask removal during sleep were covered. ResMed Air Sense 11 auto set unit with heated humidifier, supplies and Respironics medium DreamWear full face mask @ 8 cmH2O ordered. Further titration will be based on clinical response. Provided the patient with a list of local home care stores where positive airway pressure (PAP) units, accoutrement, and services are available. Home care store selection is based on patient's insurance carrier. Patient will setup an appointment with [facility] for supplies and pressure adjustments. A major predictor of success with use of PAP is follow-up with both the respiratory supplier and the treating physician. The respiratory supplier optimally will follow-up within two weeks after starting use while the treating physician optimally will follow-up within 90 days after starting therapy to assess adherence and effectiveness of treatment. The download results can show the treating physician information about adherence to treatment, residual AHI while on treatment and presence of large mask leakage. This information is especially helpful if the patient has residual sleepiness despite treatment. General information on sleep disordered breathing, evaluation of sleep disordered breathing, treatment with PAP therapy, and living with PAP therapy were covered. We discussed with the patient the impact of weight on: Sleep disordered breathing Hypertension Plantar fasciitis We discussed with the patient the benefit of PAP therapy on: Sleep disordered breathing Headaches Hypertension Educated the patient on sleep hygiene measures. Relaxing rituals to rest easy, understanding foods with positive and negative impact on sleep, creating a peaceful sleep environment, timing of exercise, using herbal sleep aids, and practicing sleep-friendly meditation were covered. To determine how much sleep is needed, the patient will assess where she falls on the spectrum, examine what lifestyle factors such as work schedules and stress are affecting the quality and quantity of sleep. In general, adults need 7-9 hours of sleep. Educated the patient regarding foods that promote sleep. These include but are not limited to cherries, bananas, toast, oatmeal, and warm milk. Educated the patient regarding foods and drinks to avoid before bedtime. These include but are not limited to aged cheese, chocolate, spicy foods, tomato-based sauces, soy, ginseng tea and processed meat. Advocated influenza vaccination annually and pneumonia vaccination in 2030. Advocated weight loss through diet and exercise. Patient's ideal body weight according to height and gender is up to 150 lbs. Encouraged patient to adjust caloric intake to maintain/achieve ideal body weight, emphasizing on fruits, vegetables, whole grains, and fat-free or low-fat products. These include lean meats, poultry, fish, beans, eggs, and nuts and foods that are low in saturated fats, trans-fats, cholesterol, salt (sodium), and glycemic index. Stressed the importance of regular exercise up to the patient's capacity limits. In this case, we recommend 20 min daily walking, 2 days a week of resistance training. Patient to monitor BP daily and bring records to PCP for further management. Follow-up: 3 months, June 2024 [email or web address] Not available 04/04/2024 08:49:31 Plan of Treatment Reminders Order Date Submit Date Provider Last Modified By Organization Details Last Modified Time Details Appointments Any 15 2024 07:30A M Ed Reynaga MD Not available Not available Not available Lab None recorded. Referral None recorded. Procedures None recorded. Surgeries None recorded. Imaging polysomno gram, titration study - Please call patient to schedule. 2024 025 CATHERINE [facility], [address] [place], [address], 04/30/2024 15:24:04 Medication Orders None recorded. Patient TargetsNo targets recorded. Patient Instructions Encounter Date Encounter Id Patient Instructions Last Modified By Organization Details Last Modified Time 09/21/2023 [id number] application of cast, short leg cast* CATHERINE Not available 04/01/2024 05:01:47 Reason for Referral None Reported. Results Created Date Observation Date Name Description Value Unit Range Abnormal Flag Note LastModifiedBy Organization Detail LastModifiedTime 03/22/1903/20/2024 home sleep study No observ ation record ed. [facility] Not Available 2024 10:21:02 04/04/1903/31/2024 polys omnog michael, titra tion study No observ ation record ed. [email or web address] [facility] [address] [place], [address], 04/30/2024 15:24:04 Result Notes None recorded. Problems Name Problem SNOMED Code Status Onset Date Resolution Date Notes Provider Name and Address Organization Details Recorded Time Plantar fasciitis of right foot 3823792014287 9101 Active 2023 ANNA MARIE Alvarez null, [facility] 4 15:49:57 Leg length inequality 55502134 Active 2023 Spike Navas DPM [address], [place], [address], [facility] 4 16:21:06 Sleep apnea 01743965 Active 2024 Ed Reynaga MD [address], [place], [address], [employer] 5 14:46:50 Obstructive sleep apnea syndrome 56401136 Active 2024 Ed Reynaga MD [address], [place], [address], [employer] 08:35:25 Notes:[facility] titration sleep s hue 03/31/24 sleep onset = 7.5 minutes, REM onset = 80.5 minutes, Respironics medium DreamWear full face mask @ 8 cmH2O, PLMI = 0.0 Medical History: Migraine headaches Early REM onset Obesity with mild OSAHS, AHI = 12, 03/20/24, on CPAP c/o IVRC Treatment-emergent central apneas Hypertension Right plantar fasciitis Procedure History: 2002 Tubal ligation 2004 Loop electrosurgical excision procedure (LEEP) 2007 Cholecystectomy 2012 ZACH-BSO 2023 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 Procedures Surgical History Date Name Laterality Status Provider Name and Address Organization Details Recorded Time 01/29/20 Hysterectomy completed Jen Thomas MA [facility] [employer] 03/22/2024 14:22:36 10/06/19 Unna boot - LE edema completed Spike Navas DPM [address], [address], [place], [address], [employer] 10/07/2023 09:20:24 09/28/19 24 Unna boot - LE edema completed Spike Navas DPM [address], [address], [place], [address], [employer] [facility] 09/28/2023 12:27:34 09/21/19 24 Trigger Point Injection completed Spike Navas DPM [address], [address], [place], [address], [employer] [facility] 09/22/2023 08:43:43 09/14/19 24 Corticosteroid Injection completed Spike Navas DPM [address], [address], [place], [address], [employer] [facility] 09/14/2023 12:28:46 09/14/19 24 Strapping Foot & Ankle completed Spike Navas DPM [address], [address], [place], [address], [employer] [facility] 09/14/2023 12:28:06 09/07/19 24 Trigger Point Injection completed Spike Navas DPM [address], [address], [place], [address], [facility] [employer] [facility] [employer] [facility] 09/07/2023 14:32:22 09/07/19 24 Strapping Foot & Ankle completed Spike Navas DPM [address], [address], [place], [address], [facility] [employer] [facility] [employer] [facility] 09/07/2023 14:32:40 07/20/19 24 Trigger Point Injection completed Spike Navas DPM [address], [address], [place], [address], [facility] [employer] [facility] 07/20/2023 09:26:00 07/20/19 24 Unna boot - LE edema completed Spike Navas DPM [address], [address], [place], [address], [facility] [employer] [facility] [employer] [facility] 07/20/2023 09:26:07 07/11/19 24 Trigger Point Injection completed Spike Navas DPM [address], [address], [place], [address], [facility] [employer] [facility] 07/11/2023 16:19:47 07/11/19 24 Unna boot - LE edema completed Spike Navas DPM [address], [place], [address], [facility] [employer] [facility] [employer] [facility] 07/11/2023 16:20:08 cholecystectomy completed Jen schwab MA [facility] [employer] [facility] 03/22/2024 14:22:42 section completed Jen alcantara MA [facility] [employer] [facility] 03/22/2024 14:22:58 Imaging Results Imaging Date Name Status LastModified by Organiz ation Details LastModified Time 03/20/2024 home sleep study completed [facility] Information not available 03/22/2024 10:21:02 03/31/2024 polysomnogram, titration study completed [email or web address] [place] [address], [place], [address], 04/30/2024 15:24:04 Procedure Notes None recorded. Medical Equipment None Reported. Allergies No known drug allergies Medications Name Sig Start Date Stop Date Status Note LastModified by Organization Details LastModified Time fluconazole 150 mg tablet 03/21 completed Not Available Not Available Not Available hydrocodone 5 mg-acetamin ophen 325 mg tablet TAKE 1 TO 2 TABLETS BY MOUTH EVERY 6 HOURS NEEDED FOR PAIN 03/22 completed Not Available Not Available Not Available metronidazo le 500 mg tablet 03/21 completed Not Available Not Available Not Available methylpredn isolone 8 mg tablet TAKE 1 TABLET BY MOUTH THREE TIMES DAILY 03/21 completed Not Available Not Available Not Available oseltamivir 75 mg capsule 03/21 completed Not Available Not Available Not Available triamcinolo ne acetonide 0.1 % topical ointment APPLY THIN LAYER TOPICALLY TO THE AFFECTED AREA TWICE DAILY FOR 10 DAYS 03/22 completed Not Available Not Available Not Available nystatin 100,000 unit/gram topical cream APPLY TOPICALLY TO THE AFFECTED AREA TWICE DAILY FOR 7 DAYS 03/22 completed Not Available Not Available Not Available prednisone 50 mg tablet TAKE 1 TABLET BY MOUTH DAILY 03/22 completed Not Available Not Available Not Available lidocaine 5 % topical patch 03/22 completed Not Available Not Available Not Available hydrochloro thiazide 25 mg tablet TAKE 1 TABLET BY MOUTH EVERY DAY IN THE MORNING active Not Available Not Available No t Available gabapentin 100 mg capsule 04/04 completed Not Available Not Available Not Available methylpredn isolone 4 mg tablets in a dose pack 03/21 completed Not Available Not Available Not Available amitriptyli ne 100 mg tablet active Not Available Not Available Not Available amoxicillin 875 mg-potassiu m clavulanate 125 mg tablet 03/21 completed Not Available Not Available Not Available nitrofurant oin monohydrate /macrocryst als 100 mg capsule TAKE 1 CAPSULE BY MOUTH EVERY 12 HOURS FOR 7 DAYS 03/21 completed Not Available Not Available Not Available Trulicity 1.5 mg/0.5 mL subcutaneou s pen injector 03/21 completed Not Available Not Available Not Available Trulicity 0.75 mg/0.5 mL subcutaneou s pen injector 03/21 completed Not Available Not Available Not Available Trulicity 3 mg/0.5 mL subcutaneou s pen injector 03/21 completed Not Available Not Available Not Available Trulicity 4.5 mg/0.5 mL subcutaneou s pen injector 03/22 completed Not Available Not Available Not Available Vitals Date Recorded Body height Body mass index (BMI) Body weight Oxygen saturation Oxygen saturation in Arterial blood by Pulse oximetry Body temperature Heart rate Provider Name and Address Organization Details Last Updated DateTime 4 172.72 cm 39.8 kg/m2 334984. 2 g 98 % 98 % 98.2 [degF] 66 /min Elías Toth [facility] 4 12:04:37 Date Recorded Body height Body mass index (BMI) Body weight Oxygen saturation Oxygen saturation in Arterial blood by Pulse oximetry Body temperature Heart rate Provider Name and Address Organization Details Last Updated DateTime 4 172.72 cm 39.8 kg/m2 266809. 2 g 98 % 98 % 98.2 [degF] 70 /min Elías Toth [facility] 4 11:40:22 Date Recorded Body height Body mass index (BMI) Body weight Oxygen saturation Oxygen saturation in Arterial blood by Pulse oximetry Body temperature Heart rate Provider Name and Address Organization Details Last Updated DateTime 4 172.72 cm 39.8 kg/m2 431352. 2 g 96 % 96 % 98.4 [degF] 77 /min Elías Toth [facility] 4 16:01:00 Date Recorded Body height Body mass index (BMI) Body weight Body temperature Heart rate Oxygen saturation Oxygen saturation in Arterial blood by Pulse oximetry Systolic blood pressure Diastolic blood pressure Provider Name and Address Organization Details Last Updated DateTime 5 172.72 cm 39.5 kg/m2 670196. 02 g 98.1 [degF] 68 /min 97 % 97 % 116 mm[Hg] 82 mm[Hg] Jen Thomas MA [facility] 5 14:25:41 Date Recorded Heart rate Respiratory rate Provider N joselito and Address Organization Details Last Updated DateTime 03/22/2024 68 /min 15 /min Ed Reynaga MD [address], [address], [place], [address], [facility] 03/22/2024 14:33:06 Date Recorded Body height Body mass index (BMI) Body weight Heart rate Oxygen saturation Oxygen saturation in Arterial blood by Pulse oximetry Body temperature Systolic blood pressure Diastolic blood pressure Provider Name and Address Organization Details Last Updated DateTime 172.72 cm 39.8 kg/m2 445500. 76 g 79 /min 97 % 97 % 98.2 [degF] 122 mm[Hg] 78 mm[Hg] Loni Carrera MA [facility] 08:42:27 Date Recorded Heart rate Respiratory rate Provider N joselito and Address Organization Details Last Updated DateTime 04/04/2024 79 /min 14 /min Ed Reynaga MD [address], [address], [place], [address], [facility] 04/04/2024 08:50:01 Social History Question Answer Notes LastModified by Organizat ion Details LastModified Time Tobacco Smoking Status Never Smoker Elías Toth, [facility] null, [facility] 07/11/2023 15:40:48 What Is Your Level Of Alcohol Consumption? Occasional Information not available 07/11/2023 What Is Your Level Of Caffeine Consumption? Moderate [email or web address] Information not available 07/11/2023 In The 14 Days Before Symptom Onset, Have You Had Close Contact With A Laboratory-confi rmed COVID-19 While That Case Was Ill? No Information not available 03/22/2024 In The 14 Days Before Symptom Onset, Have You Had Close Contact With A Person Who Is Under Investigation For COVID-19 While That Person Was Ill? No Information not available 03/22/2024 Are You Currently Employed? Yes Information not available 03/22/2024 What Type Of Diet Are You Following? REGULAR Information not available 03/22/2024 Do You Have An Electrostatic Air Filter? 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 No Not That Aware Of Information not available 04/04/2024 Do You Have A Humidifier? No Information not available 03/22/2024 Where Do You Live? [place] Information not available 04/04/2024 Do You Have Moisture Problems In Your Home? No Information not available 03/22/2024 What Was The Date Of Your Most Recent Tobacco Screening? 04/04/2024 Information not available 04/04/2024 How Many Children Do You Have? 1 Information not available 04/04/2024 Do You Have Any Pets? Yes Information not available 03/22/2024 What Is Your Relationship Status? Single Information not available 04/04/2024 Do You Use Your Seat Belt Or Car Seat Routinely? Yes Information not available 03/22/2024 Do You Have Smoke And Carbon Monoxide Detectors In Your Home? Yes Information not available 03/22/2024 Are You Passively Exposed To Smoke? Yes Information not available 03/22/2024 Do You Feel Stressed (tense, Restless, Nervous, Or Anxious, Or Unable To Sleep At Night)? [id number] Information not available 03/22/2024 Do You Use Any Illicit Or Recreational Drugs? No [email or web address] Information not available 07/11/2023 Do You Use Sunscreen Routinely? No Information not available 03/22/2024 Have You Recently Traveled Abroad? No Information not available 03/22/2024 Do You Have Any Dietary Restrictions? No Information not available 03/22/2024 Do You Or Have You Ever Used Any Other Forms Of Tobacco Or Nicotine? No Information not available 03/22/2024 Sex: Unknown Functional Status Question Answer Note LastModified by Organization D etails LastModified Time What is your exercise level? Moderate Information not available 03/22/2024 Mental Status None recorded. Family History Relationship Description Onset Age of this Age Resolved Age Notes LastModified by Organization Details LastModified Time Father Diabetes mellitus [email or web address] Not available 2023 15:39:08 Father Hypertensive disorder [email or web address] Not available 2023 15:39:34 Father Chronic kidney disease [email or web address] Not available 2024 16:44:54 Mother Diabetes mellitus [email or web address] Not available 2023 15:39:08 Mother Hypertensive disorder [email or web address] Not available 2023 15:39:34 Mother Obstructive sleep apnea syndrome [email or web address] Not available 2024 14:47:59 Mother Chronic kidney disease [email or web address] Not available 2024 14:50:56 Paternal Grandmother Malignant tumor of lung [email or web address] Not available 2024 14:48:16 Paternal Grandfather Myocardial infarction [email or web address] Not available 03/22 14:48:29 Paternal Grandfather Diabetes mellitus [email or web address] Not available 2024 14:48:35 Maternal Grandmother Neoplasm of brain [email or web address] Not available 2024 14:49:04 Maternal Grandmother Congenital blindness [email or web address] Not available 2024 14:49:17 Maternal Grandfather Diabetes mellitus [email or web address] Not available 2024 14:49:38 Paternal Uncle Pancreatitis [email or web address] Not available 03/22 14:50:12 Paternal Uncle Alcoholism [email or web address] Not available 025 14:50:22 Brother Diabetes mellitus [email or web address] Not available 2024 14:51:24 Sister Diabetes mellitus [email or web address] Not available 2024 14:51:28 Medical History Condition Response HEADACHES/MIGRAINES Y Gynecological HistoryNo gynecological history recorded. Obstetrics History GPAL:G 0 P 0 0 0 0 Past Encounters Encounter ID Performer Location Encounter Start Date Encounter Closed Date Diagnosis/Indication Diagnosis SNOMED-CT Code Diagnosis ICD10 Code Diagnosis Note [id number] Spike Navas DPM [facility] [address] [address] 07/11/2023 15:17:13 10/04/2023 17:50:53 Plantar fasciitis of right foot 2853659882 0331329 M72.2 Pain in right foot 08381 27718 99161 M79.671 Edema of l ower extremity 398447837 R60.0 Leg length inequality 45 804738 M21.70 [id number] Spike Navas DPM [facility] [place] [address] [place] [address] [address] 07/20/2023 09:05:50 07/20/2023 09:53:32 Pain in right foot 6564295238 77797 M79.671 Edema of l ower extremity 197191886 R60.0 Plantar fa sciitis of right foot 6039739492 6763430 M72.2 Leg length inequality 45 327984 M21.70 [id number] Spike Navas DPM [facility] [place] [address] [place] [address] [address] 09/07/2023 10:19:16 09/07/2023 14:45:41 Plantar fasciitis 420015651 M72.2 Pain in right foot 40904 36370 25826 M79.415 [id number] Spike Navas DPM [facility] [place] [address] [place] [address] [address] 09/14/2023 12:01:15 09/14/2023 12:35:34 [id number] Spike Navas DPM [facility] [place] [address] [place] [address] 09/21/2023 11:54:24 09/22/2023 10:15:08 Pain in right foot 8618139616 46161 M79.671 Edema of l ower extremity 279486060 R60.0 [id number] Spike Navas DPM [facility] [place] [address] [place] [address] [address] 09/28/2023 11:32:25 09/28/2023 12:52:52 Pain in right foot 6321368555 88065 M79.671 Edema 314057800 R60.9 Edema of l ower extremity 554593845 R60.0 [id number] Spike Navas DPM [facility] [place] [address] [place] [address] 1 10/06/2023 15:56:09 11/28/2023 16:38:07 Pain in right foot 8525200053 21623 M79.671 Edema of l ower extremity 422357009 R60.0 [id number] Ed Reynaga MD [facility] [address] [place] [address] 0 03/22/2024 14:07:32 03/26/2024 15:16:22 Sleep apnea 16733971 G47.30 G47.33 G47.36 G47.61 [id number] Ed Reynaga MD [facility] [address] [place] [address] 0 04/04/2024 08:30:02 04/04/2024 09:10:35 Obstructive sleep apnea syndrome 52668439 G47.33 Health Concerns Section Related Observation LastModified by Organization Detai ls LastModified Time None Recorded Concern Status LastModified by Organization Details LastModified Time None Recorded Advance Directives Directive None Recorded Payers Encounter Date Sequence Insurance Name Policy Number Policy Astorga Covered Member ID Astorga Member ID Guarantor Name 09/21/2023 1 [employer] [place] HMO[place] [id number] Jaja Parry [id number] Jaja Parry 09/28/2023 1 [employer] [place]) [id number] 0003 Jaja Parry [id number] Jaja Parry 10/06/2023 1 [facility] [facility] [place] [id number] 0003 Jaja Parry [id number] Jaja Parry 03/22/2024 1 [place] [facility] [place] [id number] 0003 Jaja Parry [id number] Jaja Parry 04/04/2024 1 [facility] [facility] [place] [id number] 0003 Jaja Parry [id number] Jaja Parry Notes Date Note Type Note Provider Name and Address Organization Details Recorded Time 09/21/2023 text/html Pt RTC for sever PFitis, heel spur, Rt foot. Unrelieved by oral meds, taping and support, injections. Spike Navas DPM [address], [address], [place], [address], [employer] 09/22/2023 09:02:20 09/28/2023 text/html Pt RTC for c/o p ain and edema, Rt leg. BK cast applied last visit. Pt stepped on a nail which pierced the cast and caused significant pain. Pt RT urgent care, where the BK cast was removed. Pt RTC this date w/o any area of ulceration or infection from the trauma. Her pain is mildly improved. Spike Navas DPM [address], [address], [place], [address], [employer] 09/28/2023 12:28:07 10/06/2023 text/html Pt RTC in low pr ofile walker. States that she still has pain during ambulation, 30% improved since pain was at its worst. Pt was instructed on proper application of the device (too loose as worn). Spike Navas DPM [address], [address], [place], [address], [employer] 10/07/2023 09:20:43 03/22/2024 text/html Primary care/Ref erring provider: Jennifer Rico PA-C During the [facility] home sleep study on 03/20/24, AHI = 12, supine AHI = 28. At home, the patient sleeps from 11 pm to 6 am and wakes up with an alarm. Snoring: heavy, since . Snorting: no Choking: yes Coughing: no Gasping: yes Gagging: no Sighing: yes Witnessed apnea: yes Twitching or jerking of leg(s), arm(s), body, head: yes Teeth grinding: no Teeth clenching: no Sleeptalking: yes Sleepwalking: no Sleep crying: no Bedwetting: no Tongue/lip/gum/cheek biting: no Sleeping with open mouth: yes Sleep paralysis: no Hypnagogic hallucinations: no Hypnopompic hallucinations: no Vivid dreams: yes Difficulty with sleep onset: yes Difficulty with sleep maintenance: yes Sleep interruptions: nocturia x 2 Patient wakes up with: fatigue, xerostomia, headaches Daytime cataplexy: no Morning hypersomnolence: no Afternoon hypersomnolence: yes Caffeine sources in diet: chocolate 1/2 candy per week Associated medical and psychiatric conditions: Congestive heart failure: no Coronary artery disease: no Myocardial infarction: no Hypertension: yes Stroke: no Bronchial asthma: no Chronic obstructive pulmonary disease: no Depression: no Bipolar disorder: no Anxiety: no Panic disorder: no Posttraumatic stress disorder: no Attention deficit and hyperactivity disorder: no Obsessive Compulsive disorder: no Schizophrenia: no Schizoaffective disorder: no Personality disorder: no Chronic analgesic use: no Chronic sedative/hypnotic use: no EPWORTH SLEEPINESS SCALE (ESS) CHANCE OF DOZING SCORE 0 = would never doze 1 = slight chance of dozing 2 = moderate chance of dozing 3 = high chance of dozing SITUATION AND CHANCE OF DOZING Sitting and reading - 2 Watching television - 1 Sitting inactive in a public place (e.g. a theater or meeting) - 2 As a passenger in a car for an hour without a break - 3 Lying down to rest in the afternoon when circumstances permit - 1 Sitting and talking to someone - 0 Sitting quietly after lunch without alcohol - 1 In a car, while stopped for a few minutes in the traffic - 0 TOTAL SCORE 10 Subjectively, patient has a moderate chance of dozing. Ed Reynaga MD [address] [place] [address], [id number], [place] [facility] [employer] 03/22/2024 14:58:59 04/04/2024 text/html Primary care/Ref erring provider: Jennifer Rico PA-C During the [facility] home sleep study on 03/20/24, AHI = 12, supine AHI = 28. During the [facility] titration sleep study on 03/31/24, sleep onset = 7.5 minutes, REM onset = 80.5 minutes, PLMI = 0.0. The patient uses a [employer]Med AirSense 11 autoset unit with heated humidification. The patient does not need the ramp to start low and go up slowly on the pressure. There is no xerostomia in a.m. There is no hose/mask condensation with water. The patient wears a Respironics medium DreamWear full face mask without chin strap. There is no claustrophobia, no nostril/nose bridge irritation, no facial rash, no facial numbness, no nosebleeding. The patient feels more refreshed upon waking and daytime alertness is improved. Energy levels are sustained for the remainder of the day. At home, the patient sleeps from 11 pm to 6 am and wakes up with an alarm. Snoring: heavy, since .Snorting: noChoking: yesCoughing: noGasping: yesGagging: noSighing: yesWitnessed apnea: yesTwitching or jerking of leg(s), arm(s), body, head: yesTeeth grinding: noTeeth clenching: noSleeptalking: yesSleepwalking: noSleep crying: noBedwetting: noTongue/lip/gum/cheek biting: noSleeping with open mouth: yesSleep paralysis: noHypnagogic hallucinations: noHypnopompic hallucinations: noVivid dreams: yesDifficulty with sleep onset: yesDifficulty with sleep maintenance: yesSleep interruptions: nocturia x 2Patient wakes up with: fatigue, xerostomia, headachesDaytime cataplexy: noMorning hypersomnolence: noAfternoon hypersomnolence: yesCaffeine sources in diet: chocolate 1/2 candy per week Associated medical and psychiatric conditions:Congestive heart failure: noCoronary artery disease: noMyocardial infarction: noHypertension: yesStroke: noBronchial asthma: noChronic obstructive pulmonary disease: noDepression: noBipolar disorder: noAnxiety: noPanic disorder: noPosttraumatic stress disorder: noAttention deficit and hyperactivity disorder: noObsessive Compulsive disorder: noSchizophrenia: noSchizoaffective disorder: noPersonality disorder: noChronic analgesic use: noChronic sedative/hypnotic use: no EPWORTH SLEEPINESS SCALE (ESS) CHANCE OF DOZING SCORE0 = would never doze1 = slight chance of dozing2 = moderate chance of dozing3 = high chance of dozing SITUATION AND CHANCE OF DOZINGSitting and reading - 2Watching television - 2Sitting inactive in a public place (e.g. a theater or meeting) - 0As a passenger in a car for an hour without a break - 3Lying down to rest in the afternoon when circumstances permit - 2Sitting and talking to someone - 0Sitting quietly after lunch without alcohol - 1In a car, while stopped for a few minutes in the traffic - 0TOTAL SCORE 10Subjectively, patient has a moderate chance of dozing. Ed Reynaga MD [address] [place] [address], [place], [address], [facility] 04/04/2024 08:56:18 OBGyn Episode No OBEpisode recorded.
[2024-05-05 10:27] VITALS: BP 145/90; PULSE 73; RESP 16; TEMP 36.8; O2SAT 99
--- OUTSIDE RECORDS SUMMARY | 2024-05-05 11:24 | XMS_ITS | CONTINUITY OF CARE DOCUMENT ---
Author Name shyla mansfiled Address Unknown Organization [facility] Address [address] [place] [address] Phone [phone] Care Team Providers Care Tripoler Name Role Phone shyla mansfield Unavailable Unavailable INSURANCE PROVIDERS Payer name Policy type / Coverage type [employer] party ID [id number] MEDICAID (2) Medicaid [id number]
[2024-05-05 11:52] LABS: Basophils Absolute Auto 0.1 K/mm3 (0.0-0.1); Basophils Percent Auto 1.1 % (0.2-1.2); Eosinophils Absolute Auto 0.1 K/mm3 (0-0.3); Eosinophils Percent Auto 1.2 % (0-4.4); Hematocrit 42.5 % (37.0-47.0); Hemoglobin 14.3 g/dL (12.0-15.0); Immature Granulocyte Absolute 0.02 K/mm3 (0.00-0.031); Immature Granulocyte Percent A 0.3 % (0-0.5); Lymphocytes Absolute Auto 2.34 K/mm3 (0.9-3.2); Lymphocytes Percent Auto 31.8 % (18.3-44.2); Mean Corpuscular HGB Conc 33.6 g/dl (32-36); Mean Corpuscular Hemoglobin 29.2 pg (26-34); Mean Corpuscular Volume 86.9 fl (80-100); Mean Platelet Volume 10.9 fl (7.4-10.4); Monocytes Absolute Auto 0.7 K/mm3 (0.1-0.6); Monocytes Percent Auto 9.1 % (2.6-8.5); Neutrophils Absolute Auto 4.2 K/mm3 (1.3-6.7); Neutrophils Percent Auto 56.5 % (45.5-73.1); Platelet Count Result 262 k/mm3 (150-375); Red Blood Count 4.89 M/mm3 (4.2-5.4); Red Cell Distribution Width 12.6 % (11.5-14.5); White Blood Count 7.4 K/mm3 (4.5-10.0)
--- NOTE | 2024-05-05 11:55 | ED_ITS ---
HPI - Extremity Problem General Chief complaint: Extremity Problem,Nontraumatic Stated complaint: right leg swelling Time Seen by Provider: 05/05/24 11:11 Source: patient, RN notes reviewed and old records reviewed Mode of arrival: ambulatory Limitations: no limitations History of Present Illness HPI Narrative: This is a 43 year old female who presents for evaluation of right lower leg pain. PAtient reports right leg swelling from her knee to right foot for 2 weeks. She also reports pain around right anterior distal leg. She also reports bruising to her leg and she does not remember any trauma. She states her swelling does not improve with elevation. She reports having gynecological surgery in January. She denies history of DVT, chest pain, shortness of breath, fever. MD Complaint: extremity swelling Onset (ago): week(s) Pain Consistency: constant Location: right and lower extremity Related Data Home Medications ?Medication ?Instructions ?Recorded ?Confirmed ?Last Taken ?Type hydrochlorothiazide 25 mg tablet 25 mg PO DAILY 07/20/22 02/24/24 02/23/24 History Allergies Allergy/AdvReac Type Severity Reaction Status Date / Time No Known Allergies Allergy Verified 05/05/24 10:30 Review of Systems 2 Cardiovascular: Cardiovascular: Denies chest pain Respiratory: Respiratory: Denies dyspnea PMFSH Past Medical History Medical History (Updated 05/05/24 @ 12:40 by Hiwot Mahajan MD) Morbid obesity HTN (hypertension) Hx of migraines Healthy female adult Surgical History Surgical History (Updated 05/05/24 @ 12:00 by Hiwot Mahajan MD) History of hysterectomy No history of previous surgery Family History Family History Mother Family history non-contributory Social History Social History Smoking status: Never smoker Alcohol use details: 1 Beer per month Substance use: never Living arrangements: with family Additional living arrangements comments: Son Gender identity (if verbalized by the patient): Female Sexual Orientation (if Verbalized by the Patient): Straight or Heterosexual Spiritual care concerns: No Exam 2 Const: General: no acute distress and alert Nutritional Appearance: obese Orientation/consciousness: patient oriented x3 HENMT: Head: normal to inspection Eyes: EOM: EOMs intact bilaterally Extrem: General: edema right Other: right lower leg swelling from knee to foot, nonpitting; no calf tenderness; tenderness anteriorly Psych: Mental Status: mental status grossly normal Affect: normal affect Attitude: cooperative Course Reevaluation(s) Reevaluation #1: I discussed with patient that no DVT on US and xray is negative. She has appointment set up with PCP. We discussed wearing compression stocking . Swelling is likely chronic. We also discussed pain management. She declines work note. Date: 05/05/24 Time: 12:37 Vital Signs Vital signs: Vital Signs Temperature 98.2 F 05/05/24 10:27 Pulse Rate 73 05/05/24 10:27 Respiratory Rate 16 05/05/24 10:27 Blood Pressure 145/90 H 05/05/24 10:27 Pulse Oximetry 99 05/05/24 10:27 Oxygen Delivery Room Air 05/05/24 10:27 Temperature 98.6 F 05/05/24 13:00 Pulse Rate 75 05/05/24 13:00 Respiratory Rate 16 05/05/24 13:00 Blood Pressure 136/94 H 05/05/24 13:00 Pulse Oximetry 98 05/05/24 13:00 Oxygen Delivery Room Air 05/05/24 10:27 MDM - Extremity (Nontraumatic) Differential Diagnosis Differential diagnosis: Likely superficial thrombophlebitis, lower extremity edema and deep vein thrombosis of lower extremity Medical Records Attestation: I reviewed the patient's medical records. Lab Data Attestation: I reviewed the patient's lab results. 05/05/24 11:40 05/05/24 11:40 Labs: Lab Results 05/05/24 Range/Units 11:40 WBC 7.4 (4.5-10.0) K/mm3 RBC 4.89 (4.2-5.4) M/mm3 Hgb 14.3 (12.0-15.0) g/dL Hct 42.5 (37.0-47.0) % MCV 86.9 (80-100) fl MCH 29.2 (26-34) pg MCHC 33.6 (32-36) g/dl RDW 12.6 (11.5-14.5) % Plt Count 262 (150-375) k/mm3 MPV 10.9 H (7.4-10.4) fl Immature Gran % (Auto) 0.3 (0-0.5) % Neut % (Auto) 56.5 (45.5-73.1) % Lymph % (Auto) 31.8 (18.3-44.2) % Otoe % (Auto) 9.1 H (2.6-8.5) % Eos % (Auto) 1.2 (0-4.4) % Baso % (Auto) 1.1 (0.2-1.2) % Lymph # (Auto) 2.34 (0.9-3.2) K/mm3 O[place]e # (Auto) 0.7 H (0.1-0.6) K/mm3 Eos # (Auto) 0.1 (0-0.3) K/mm3 Baso # (Auto) 0.1 (0.0-0.1) K/mm3 Abs Immat Gran (auto) 0.02 (0.00-0.031) K/mm3 Absolute Neuts (auto) 4.2 (1.3-6.7) K/mm3 Absolute Nucleated RBC 0.000 (0.0-0.012) K/mm3 Nucleated RBC % 0.0 (0.0-0.2) % D-Dimer 0.31 (<0.48) ug/mL Sodium 138 (137-145) mmol/L Potassium 4.1 (3.4-5.0) mmol/L Chloride 104 (98-107) mmol/L Carbon Dioxide 26 (22-30) mmol/L Anion Gap 8 (4-12) mmol/L BUN 13 D (7-17) mg/dL Creatinine 0.77 (0.7-1.0) mg/dL Estim Creat Clear Calc 109 ml/min Estimated GFR > 60 (59 - ) Glucose 112 H (65-110) mg/dL Calcium 9.8 (8.4-10.2) mg/dL Total Bilirubin 1.4 H (0.2-1.3) mg/dL AST 28 (14-36) U/L ALT 32 (6-35) U/L Alkaline Phosphatase 79 (38-126) U/L Total Creatine Kinase 74 (30-135) U/L Total Protein 8.0 (6.3-8.2) g/dL Albumin 4.5 (3.5-5.1) g/dL Imaging Data Radiologist's impression: ITS Impressions Tibia/Fibula X-Ray 05/05/24 12:03 IMPRESSION: 1. Normal right tibia and fibula. Venous Doppler Study 05/05/24 12:22 IMPRESSION: 1. No deep venous thrombosis. Discharge Plan Discharge Clinical Impression: Pain and swelling of right lower leg Patient Disposition: Home, Self-Care Condition: Stable Instructions: Leg Edema (ED) Additional Instructions: I recommend wearing compression socks or stocking. Take naproxen or ibuprofen for your pain. Follow up with your primary care provider. Patient Language: Estonian Prescriptions: No Action hydrochlorothiazide 25 mg tablet 25 mg PO DAILY hydrocodone-acetaminophen 5-325 mg tablet 1 - 2 tablet PO Q6H PRN (Reason: pain) Qty: 25 0RF Follow-up/Referrals: Berhane,ZANDRA Avila [Primary Care Provider] -
[2024-05-05 12:09] LABS: Alanine Aminotransferase 32 U/L (6-35); Albumin Level 4.5 g/dL (3.5-5.1); Alkaline Phosphatase 79 U/L (38-126); Anion Gap 8 mmol/L (4-12); Aspartate Amino Transferase 28 U/L (14-36); Bilirubin,Total 1.4 mg/dL (0.2-1.3); Blood Urea Nitrogen 13 mg/dL (7-17); Calcium 9.8 mg/dL (8.4-10.2); Carbon Dioxide 26 mmol/L (22-30); Chloride 104 mmol/L (98-107); Creatine Kinase 74 U/L (30-135); Estimated CRCL calculation 109 ml/min; Estimated Glomerular Filt Rate > 60; Glucose 112 mg/dL (65-110); Potassium 4.1 mmol/L (3.4-5.0); Sodium 138 mmol/L (137-145)
[2024-05-05 12:10] LABS: D Dimer 0.31 ug/mL (<0.48)
[2024-05-05 13:00] VITALS: BP 136/94; PULSE 75; RESP 16; TEMP 37; O2SAT 98
== END 2024-05-05 13:22 | disposition home or self-care (01) ==
PROVIDERS: Emergency Provider General Practice; PCP Physician Assistant
DX: M79.661 Pain in right lower leg (principal); R22.41 Localized swelling, mass and lump, right lower limb; I10 Essential (primary) hypertension
CPT/HCPCS: 36415; 73590; 80053; 82550; 85025; 85380; 93971; 99284

== ENCOUNTER 2024-05-23 12:22 | Outpatient (CLI) | payer OTHER, SELFPAY ==
--- NOTE | ~2024-05-23 | XR_ITS ---
XR foot RT min 3V Ordering provider: Margarita Last, ZANDRA History: . pain in rt foot X 1 MONTH. NKI, REDNESS . Comparison: None. FINDINGS: BONES: No acute fracture or dislocation. JOINT SPACES: Normal. No tarsal coalition. SOFT TISSUES: Soft tissue swelling over the area of the metatarsophalangeal joints is seen. Clinical correlation advised. Calcaneus spur is noted. IMPRESSION: No acute osseous abnormality of the right foot. Reviewed, dictated and finalized at location A.
--- OUTSIDE RECORDS SUMMARY | 2024-05-23 13:28 | XMS_ITS | Data Portability ---
Author Organization 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 Plan of Treatment Reminders Order Date Submit Date Provider Last Modified By Organization Details Last Modified Time Details Appointments MED CHECK 2024 09:00A Joshua VIDES MD Not available Not available Not available Lab urinalysi s, dipstick 2024 025 [email or web address] [place], [address], [place], [address], 03/13/2024 16:17:41 Referral None recorded. Procedures None recorded. Surgeries robotic assisted hysterect avis w/bilater al salpingo- oophorect avis (SURG) 2023 024 [facility], [address], [place], [address], 02/24/2024 12:05:32 Imaging None recorded. Medication Orders Lexapro 20 mg tablet 2024 [facility] [address], [place], [id number], 05/05/2024 11:15:39 Macrobid 100 mg capsule 2024 025 [facility], [address], [place], [place], [id number], 05/03/2024 09:21:27 Patient TargetsNo targets recorded. Patient [...] t Abnor mal: No Resul ting Lab: [facility] [address] [address] Tel: CULTU RE ----- ----- ----- --- No growt h in 1 day (dete ction level of 10,00 0 colon ies / ml.) Not Available [facility] (Lab) [address], [place], [address], 03/14/2024 23:53:55 03/13/19 25 03/13/2024 urina lysis , dipst ick Leukocytes + Not Available [facility] [address], [place], [address], 03/13/2024 16:16:30 03/13/19 25 03/13/2024 urina lysis , dipst ick Nitrite - Not Available [place] [address], [place], [address], 03/13/2024 16:16:30 03/13/19 25 03/13/2024 urina lysis , dipst ick Protein ++ Not Available [place] [address], [place], [address], 03/13/2024 16:16:30 03/13/19 25 03/13/2024 urina lysis , dipst ick pH 6 Not Available [place] [address], [place], [address], 03/13/2024 16:16:30 03/13/19 25 03/13/2024 urina lysis , dipst ick Blood ++ Not Available [place] [address], [place], [address], 03/13/2024 16:16:30 03/13/19 25 03/13/2024 urina lysis , dipst ick Specific [place] 1.025 Not Available [facility] [address], [place], [address], 03/13/2024 16:16:30 03/13/19 25 03/13/2024 urina lysis , dipst ick Appearance clear Not Available [facility] arielle [address], [place], [address], 03/13/2024 16:16:30 03/13/19 25 03/13/2024 urina lysis , dipst ick Color Dark Yellow Not Available [place] [address], [place], [address], 03/13/2024 16:16:30 12/08/19 24 12/08/2023 US, pelvi s No observ ation record ed. [email or web address] [place] [address], [place], [address], 12/08/2023 10:29:38 12/08/19 24 12/08/2023 US, trans vagin al No observ ation record ed. [email or web address] [place] [address], [place], [address], 12/08/2023 10:29:48 12/08/19 24 12/08/2023 US, pelvi s No observ ation record ed. [email or web address] [address], [place], [address], 12/08/2023 22:24:30 Result Notes None recorded. Problems Name Problem SNOMED Code Status Onset Date Resolution Date Notes Provider Name and Address Organization Details Recorded Time Hypertensive disorder 55391242 Active 2024 Taniya covington [facility] 10:52:06 Migraine 53317913 Active 2024 Taniya covington [facility] 10:52:11 Problem Notes None recorded. Procedures Surgical History Date Name Laterality Status Provider Name and Address Organization Details Recorded Time 02/24/20 24 ROBOTIC ASSISTED HYSTERECTOMY W/BILATERAL SALPINGO-OOPHORECT AVIS (SURG) completed Jacquelin Thomson [facility] 02/24/2024 12:06:20 04/01/19 23 Date of Last Pap Smear completed Taniyarandi Niño [facility] 11/28/2023 14:54:49 02/28/19 21 [facility] 11/28/2023 16:10:10 10/20/19 08 Dilation [facility]tt[facility] 11/28/2023 16:09:48 10/12/19 08 Colposcopy [facility] 11/28/2023 16:12:36 10/12/19 08 LEEP completed [facility] 11/28/2023 16:10:55 08/29/19 08 Colposcopy completed Taniyarandi Niño [facility] 11/28/2023 16:11:08 02/28/19 06 Dilation and Curettage completed [facility] 11/28/2023 16:09:09 02/28/19 05 Dilation and Curettage completed [facility] 11/28/2023 16:09:31 02/28/19 04 Dilation and Curettage completed [facility] 11/28/2023 16:08:51 12/14/19 02 section completed [facility] 11/28/2023 16:11:50 02/28/19 02 Dilation and Curettage completed [facility] 11/28/2023 16:08:39 02/28/19 01 Dilation and Curettage completed [facility] 11/28/2023 16:07:47 02/28/19 00 Dilation and Curettage completed [facility] 11/28/2023 16:07:42 02/28/19 00 Laparoscopy completed [facility] 11/28/2023 16:10:40 02/28/18 98 Dilation and Curettage completed [facility] 11/28/2023 16:07:26 02/28/18 97 Dilation and Curettage completed [facility] 11/28/2023 16:08:04 02/28/18 96 Dilation and Curettage completed [facility] 11/28/2023 16:08:01 02/28/18 95 Dilation and Curettage completed [facility] 11/28/2023 16:08:27 02/28/18 94 Dilation and Curettage completed [facility] 11/28/2023 16:07:07 Imaging Results Imaging Date Name Status LastModified by Organization Details LastModified Time 12/08/2023 US, pelvis completed [email or web address] [place] [address], [place], [address], 12/08/2023 10:29:38 12/08/2023 US, transvaginal completed [email or web address] [facility]ree [address], [place], [address], 12/08/2023 10:29:48 12/08/2023 US, pelvis completed [email or web address] [address], [place], [address], 12/08/2023 22:24:30 Procedure Notes None recorded. Medical Equipment None Reported. Allergies No known drug allergies Medications Name Sig Start Date Stop Date Status Note LastModified by Organization Details LastModified Time Mirena 21 mcg/24 hr (up to 8 years) 52 mg intrauter ine device 03/13 completed Prescrib ed Elsewher e: Yes [facility] By: [email or web address] trick En counter DateTime : 02/10/20 13 10:30:00 AM Not Available Not Available Not Available hydrocodo ne 5 mg-acetam inophen 325 mg tablet 2023 active Not Available Not Available Not Avai lable Flagyl 500 mg tablet take 1 tablet (500MG) by oral route every 12 hours for 10 days 03/12 completed Prescrib ed Elsewher e: No [facility] odify By: [email or web address] trick En counter [...] Prescrib ed Elsewher e: No Locat ion: [facility] she[facility] M odify By: [email or web address] Encount er DateTime : 02/10/20 13 10:30:00 AM Not Available Not Available Not Available hydrochlo rothiazid e 25 mg tablet TAKE 1 TABLET BY MOUTH EVERY DAY IN THE MORNING active Not Available Not Available No t Available amoxicill in 875 mg-potass ium clavulana te 125 mg tablet 12/06 completed Not Available Not Available Not Available escitalop michael 20 mg tablet TAKE 1 TABLET BY MOUTH EVERY DAY active Not Available Not Available No t Available nitrofura ntoin monohydra te/macroc rystals 100 mg [...] Updated DateTime 12/13/2023 172.72 cm 38.9 kg/m2 094017.6 5 g 126 mm[Hg] 86 mm[Hg] Hiwot Prescott [facility] 4 09:35:00 Date Recorded Body height Body mass index (BMI) Body weight Systolic blood pressure Diastolic blood pressure Provider Name and Address Organization Details Last Updated DateTime 02/13/2024 172.72 cm 40.3 kg/m2 482996.9 8 g 144 mm[Hg] 96 mm[Hg] Hiwot Prescott [facility] 4 09:41:17 Date Recorded Body height Body mass index (BMI) Body weight Systolic blood pressure Diastolic blood pressure Provider Name and Address Organization Details Last Updated DateTime 03/01/2024 172.72 cm 39.2 kg/m2 083693.8 3 g 148 mm[Hg] 89 mm[Hg] Hiwot Prescott [facility] 5 15:46:12 Date Recorded Body height Body mass index (BMI) Body weight Systolic blood pressure Diastolic blood pressure Provider Name and Address Organization Details Last Updated DateTime 03/13/2024 172.72 cm 39.5 kg/m2 902955.0 2 g 123 mm[Hg] 85 mm[Hg] Valery Werner [facility] 5 16:00:16 Date Recorded Body height Body mass index (BMI) Body weight Systolic blood pressure Diastolic blood pressure Provider Name and Address Organization Details Last Updated DateTime 05/05/2024 172.72 cm 40.1 kg/m2 544808.3 9 g 125 mm[Hg] 85 mm[Hg] Taniya Niño [facility] 5 10:51:19 Social History Question Answer Notes LastModified by Organizat ion Details LastModified Time Tobacco Smoking Status Never Smoker Ofelia covington, [facility] 12/07/2023 12:05:33 What [...] Or The Highest Degree You Have Received? 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 No Information not available 12/07/2023 Do You Feel Stressed (tense, Restless, Nervous, Or Anxious, Or Unable To Sleep At Night)? [id number] Information not available 12/07/2023 Do You Use [...] Organization Details LastModified Time Mother Diabetes mellitus [email or web address] Not available 11/27 15:01:54 Mother Malignant tumor of cervix [email or web address] Not available 11/27 15:02:07 Father Diabetes mellitus [email or web address] Not available 11/27 15:01:54 Sister Diabetes mellitus Not available 11/27 15:01:54 Brother Diabetes mellitus [email or web address] Not available 11/27 15:01:55 Maternal Grandmother Diabetes mellitus [email or web address] Not available 11/27 15:01:55 Paternal Grandmother Diabetes mellitus [email or web address] Not available 11/27 15:01:55 Paternal Grandmother Malignant tumor of lung [email or web address] Not available 11/27 15:02:32 Maternal Grandfather Diabetes mellitus [email or web address] Not available 11/27 15:02:52 Paternal Grandfather Diabetes mellitus [email or web address] Not available 11/27 15:03:00 Medical History Condition [...] Disorder Y Autoimmune disease N Arthritis N Infertility N Polyps N Acid Reflux (GERD) N History of abnormal pap N Cancer N Stroke N Varicosities N Neurologic/Epilepsy N Endometriosis N High Cholesterol N Headaches Y Fibromyalgia N Kidney Disease N Heart Problems [...] SNOMED-CT Code Diagnosis ICD10 Code Diagnosis Note [id number] Josse Vides MD [place] [address] [address] 12/07/2023 11:45:14 12/07/2023 12:55:02 Menorrhagia 232012328 N92.0 This patient is a 43-year-ol d [...] Spent over 30 minutes on her care. [id number] [facility] [address] [address] 12/08/2023 09:28:38 12/08/2023 09:52:58 Menorrhagia 623923079 N92.0 This patient is a 43-year-ol d [...] Spent over 30 minutes on her care. [id number] Josse Vides MD [place] [address] [address] 12/13/2023 09:31:22 12/13/2023 12:40:55 Menorrhagia 645677846 N92.0 This patient is a 43-year-ol d [...] his tory of malignant neoplasm of ovary 694567013 Z80.41 [id number] Josse Vides MD [place] [address] [address] 02/13/2024 09:29:03 02/14/2024 07:03:17 Menorrhagia 093714305 N92.0 This patient is a 43-year-ol d female with severe menorrhagi a. We have agreed to perform robotic assisted total hysterecto my bilateral salpingo-o ophorectom y. She understand s the risks, benefits, and alternativ es. She has completed the informed consent process and is ready to proceed. [id number] Josse Vides MD [place] [address] [address] 03/01/2024 15:10:13 03/02/2024 06:39:47 Postoperative care 571663671 Z48.89 female Patient presents for postop follow-up. She is 1 week postop from a total robotic hysterecto my bilateral salpingect avis and left oophorecto my . She has no complaints . Her incisions are clean dry and intact. She is recovering normally. She will follow-up as needed. [id number] MARLYN Donovan [place] [address] [address] 03/13/2024 15:33:51 03/13/2024 16:30:30 Urinary symptoms 136535656 R39.9 UA/cx sentrx sent for presumptiv e [...] counseling and review of plan of care. [id number] Josse Vides MD [place] [address] [address] 05/05/2024 10:36:13 05/07/2024 10:26:08 Major depressive disorder 216248233 F32.9 43-year-ol d female with major depressive disorder. We discussed treatment in detail. We talked about precaution s and instructio ns for the medication . She is prescribed SSRI, Lexapro, 10 mg. She was informed of the risks, benefits, and alternativ es. She will follow up in 4 weeks. She was asked to call immediatel y for any problems. I spent over 30 minutes on her care in total. Health Concerns Section Related Observation LastModified by Organization Detai ls LastModified Time None Recorded Concern Status LastModified by Organization Details LastModified Time None Recorded Advance Directives Directive None Recorded Payers Encounter Date Sequence Insurance Name Policy Number Policy Astorga Covered Member ID Astorga Member ID Guarantor Name 12/13/2023 1 [facility] (MEDICAID HMO) [id number] Jaja Parry [id number] Jaja Parry 02/13/2024 1 [facility] (MEDICAID HMO) [id number] Jaja Parry [id number] Jaja Parry 03/01/2024 1 [facility] (MEDICAID HMO) [id number] Jaja Parry [id number] Jaja Parry 03/13/2024 1 [facility] (MEDICAID HMO) [id number] Jaja Parry [id number] Jaja Parry 05/05/2024 1 [facility] (MEDICAID HMO) [id number] Jaja Parry [id number] Jaja Parry Notes Date Note Type Note [...] is risk of hemorrhage and infection. Josse Vides MD [address], [place], [address], [facility] 12/13/2023 12:34:48 02/13/2024 text/html this patient [...] is risk of hemorrhage and infection. Josse Vides MD [address], [place], [address], [facility] 02/13/2024 21:10:33 03/01/2024 text/html female Patient presents for postop follow-up. She is 1 week postop from a total robotic hysterectomy bilateral salpingectomy and left oophorectomy . She has no complaints. Her incisions are clean dry and intact. She is recovering normally. She will follow-up as needed. Josse Vides MD [address], [place], [address], [facility] 03/01/2024 18:27:47 03/13/2024 text/html 43yopresents for urinary symptomsurinary frequency/urgency and dysuriasymptoms started 3 days agopt is s/p robotic assisted hysterectomy with bilateral salpingo-oophorectom y neg n/v/fneg flu-like symptomsneg flank painsneg vaginal bleedingneg pelvic pain MARLYN Donovan [address], [place], [address], [facility] 03/13/2024 16:25:57 05/05/2024 text/html Anxiety/Depressi onRe ported bypatient.Quality:mo od worse;increased anxiety Severity:denies suicidal ideations;interferen ce with household activities;interfere nce with sleep;interference with work Duration:started:; frequent; symptoms lasting over 2 weeks Onset/Timing:gradual Context:no major life stressors Associated Symptoms:denies homicidal ideations; no significant weight gain; no delusions; no shortness of breath;emotional lability;anxiety;hyp ersensitivity;depres griselda;loneliness;rest lessness/agitation;s leep disturbances;anhedon ia;feeling guilty;low self-esteem;function al impairment Josse Vides MD [address], [place], [address], [facility] 05/06/2024 21:46:36 OBGyn Episode Ob Episode Information Episode Created Date Number of Fetuses Patient Bloodtype Patient rh Status Prepregnancy Weight lbs Domestic Partner Domestic Partner Phone Father Name Package Line Relief Operator Status 11/28/19 24 1 CLOSED Fetus Data First Name Last Name Admitted to NICU Weight (g) Sex Living Outcome Pediatric Complications Fetus ID Race Codes Race Delivery Type Ectopic [id number] Antony Calculation Initial Antony Date Initial Exam [...] Domestic Partner Domestic Partner Phone Father Name Package Line Relief Operator Status 11/28/19 24 1 CLOSED Fetus Data First Name Last Name Admitted to NICU Weight (g) Sex Living Outcome Pediatric Complications Fetus ID Race Codes Race Delivery Type 4309.12 4 M Full Term [id number] Vaginal Delivery Antony Calculation Initial Antony Date [...] Domestic Partner Domestic Partner Phone Father Name Package Line Relief Operator Status 11/28/19 24 1 CLOSED Fetus Data First Name Last Name Admitted to NICU Weight (g) Sex Living Outcome Pediatric Complications Fetus ID Race Codes Race Delivery Type 4195.72 6 M Full Term [id number] Primary Antony Calculation Initial Antony Date Initial [...]
--- OUTSIDE RECORDS SUMMARY | 2024-05-23 13:29 | XMS_ITS | CONTINUITY OF CARE DOCUMENT ---
Author Name shyla mansfield Address Unknown Organization [facility] Address [address] [place] [address] Phone [phone] Care Team Providers Care Senior Associate Name Role Phone shyla mansfield Unavailable Unavailable INSURANCE PROVIDERS Payer name Policy type / Coverage type Roland red alliance party ID [id number] MEDICAID (2) Medicaid [id number]
--- OUTSIDE RECORDS SUMMARY | 2024-05-23 13:29 | XMS_ITS | Data Portability ---
Author Organization [place] - [facility], Main Office Address [address] [place] [address] Assessment Encounter Date Assessment Date Assessment LastModified by Organization Details LastModified Time 03/22/2024 03/22/2024 Assessment: Mild OSAHS, AHI = 12 PLMD Hypoventilation Plan: The following were reviewed and explained to the patient: primary care/referral note [facility] home sleep study 03/20/24 AHI = 12, [...] were reviewed and explained to the patient: [facility] home sleep study 03/20/24 AHI = 12, supine AHI = 28 [facility] titration sleep study 03/31/24 sleep onset = [...] carrier. Patient will setup an appointment with [facility] for supplies and pressure adjustments. A major [...] further management. Follow-up: 3 months, June 2024 [email or web address] Not available 04/04/2024 08:49:31 Plan of Treatment Reminders Order Date Submit Date Provider Last Modified By Organization Details Last Modified Time Details Appointments Any 15 2024 07:30A M Ed Reynaga MD Not available Not available Not available Lab None recorded. Referral None recorded. Procedures None recorded. Surgeries None recorded. Imaging polysomno gram, titration study - Please call patient to schedule. 2024 025 CATHERINE [facility], [address] [place], [address], 04/30/2024 15:24:04 Medication Orders None recorded. Patient TargetsNo targets recorded. Patient Instructions Encounter Date Encounter Id Patient Instructions Last Modified By Organization Details Last Modified Time 09/21/2023 [id number] application of cast, short leg cast* CATHERINE Not available 04/01/2024 05:01:47 Reason for Referral None Reported. Results Created Date Observation Date Name Description Value Unit Range Abnormal Flag Note LastModifiedBy Organization Detail LastModifiedTime 03/22/1903/20/2024 home sleep study No observ ation record ed. [facility] Not Available 2024 10:21:02 04/04/1903/31/2024 polys omnog michael, titra tion study No observ ation record ed. [email or web address] [facility] [address] [place], [address], 04/30/2024 15:24:04 Result Notes None recorded. Problems Name Problem SNOMED Code Status Onset Date Resolution Date Notes Provider Name and Address Organization Details Recorded Time Plantar fasciitis of right foot 3429746766137 9101 Active 2023 ANNA MARIE Alvarez null, [employer] 4 15:49:57 Leg length inequality 63040174 Active 2023 Spike Navas DPM [address], [place], [address], [employer] 4 16:21:06 Sleep apnea 96509572 Active 2024 Ed Reynaga MD [address], [place], [address], [facility] 5 14:46:50 Obstructive sleep apnea syndrome 87610773 Active 2024 Ed Reynaga MD [address], [place], [address], [facility] 08:35:25 Notes:[facility] titration sleep s hue 03/31/24 sleep onset [...] Cholecystectomy 2012 [facility]BSO 2023 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 Procedures Surgical History Date Name Laterality Status Provider Name and Address Organization Details Recorded Time 01/29/20 Hysterectomy completed Jen Thomas MA [employer] [facility] 03/22/2024 14:22:36 10/06/19 Unna boot - LE edema completed Spike Navas DPM [address], [address], [place], [address], [employer] 10/07/2023 09:20:24 09/28/19 24 Unna boot - LE edema completed Spike Navas DPM [address], [address], [place], [address], [employer] 09/28/2023 12:27:34 09/21/19 24 Trigger Point Injection completed Spike Navas DPM [address], [address], [place], [address], [employer] [facility] 09/22/2023 08:43:43 09/14/19 24 Corticosteroid Injection completed Spike Navas DPM [address], [address], [place], [address], [employer] [facility] 09/14/2023 12:28:46 09/14/19 24 Strapping Foot & Ankle completed Spike Navas DPM [address], [address], [place], [address], [employer] [facility] 09/14/2023 12:28:06 09/07/19 24 Trigger Point Injection completed Spike Navas DPM [address], [address], [place], [address], [facility] [employer] [facility] [employer] [facility] 09/07/2023 14:32:22 09/07/19 24 Strapping Foot & Ankle completed Spike Navas DPM [address], [place], [address], [facility] [employer] [facility] [employer] [facility] 09/07/2023 14:32:40 07/20/19 24 Trigger Point Injection completed Spike Navas DPM [address], [place], [address], [employer] [facility] [employer] [facility] 07/20/2023 09:26:00 07/20/19 24 Unna boot - LE edema completed Spike Navas DPM [address], [place], [address], [facility] [employer] [facility] [employer] [facility] 07/20/2023 09:26:07 07/11/19 24 Trigger Point Injection completed Spike Navas DPM [address], [address], [place], [address], [employer] [facility] [employer] [facility] 07/11/2023 16:19:47 07/11/19 24 Unna boot - LE edema completed Spike Navas DPM [address], [place], [address], [facility] [employer] [facility] [employer] [facility] 07/11/2023 16:20:08 cholecystectomy completed Jen schwab MA [employer] [facility] [facility] 03/22/2024 14:22:42 section completed Jen alcantara MA [employer] [facility] [facility] [employer] [facility] 03/22/2024 14:22:58 Imaging Results Imaging Date Name Status LastModified by Organiz ation Details LastModified Time 03/20/2024 home sleep study completed [facility] Information not available 03/22/2024 10:21:02 03/31/2024 polysomnogram, titration study completed [email or web address] [place] [address], [place], [address], 04/30/2024 15:24:04 Procedure Notes None recorded. Medical [...] Updated DateTime 4 172.72 cm 39.8 kg/m2 265155. 2 g 98 % 98 % 98.2 [degF] 66 /min Elías Toth Frank [employer] 4 12:04:37 Date Recorded Body height Body mass index (BMI) Body weight Oxygen saturation Oxygen saturation in Arterial blood by Pulse oximetry Body temperature Heart rate Provider Name and Address Organization Details Last Updated DateTime 4 172.72 cm 39.8 kg/m2 245697. 2 g 98 % 98 % 98.2 [degF] 70 /min Elías Toth Frank [employer] 4 11:40:22 Date Recorded Body height Body mass index (BMI) Body weight Oxygen saturation Oxygen saturation in Arterial blood by Pulse oximetry Body temperature Heart rate Provider Name and Address Organization Details Last Updated DateTime 4 172.72 cm 39.8 kg/m2 890836. 2 g 96 % 96 % 98.4 [degF] 77 /min Elías Toth Frank [employer] 4 16:01:00 Date Recorded Body height Body mass index (BMI) Body weight Body temperature Heart rate Oxygen saturation Oxygen saturation in Arterial blood by Pulse oximetry Systolic blood pressure Diastolic blood pressure Provider Name and Address Organization Details Last Updated DateTime 5 172.72 cm 39.5 kg/m2 759883. 02 g 98.1 [degF] 68 /min 97 % 97 % 116 mm[Hg] 82 mm[Hg] Jen Thomas MA [employer] 5 14:25:41 Date Recorded Heart rate Respiratory rate Provider N joselito and Address Organization Details Last Updated DateTime 03/22/2024 68 /min 15 /min Ed Reynaga MD [address], [address], [place], [address], [employer] 03/22/2024 14:33:06 Date Recorded Body height Body mass index (BMI) Body weight Heart rate Oxygen saturation Oxygen saturation in Arterial blood by Pulse oximetry Body temperature Systolic blood pressure Diastolic blood pressure Provider Name and Address Organization Details Last Updated DateTime 172.72 cm 39.8 kg/m2 328606. 76 g 79 /min 97 % 97 % 98.2 [degF] 122 mm[Hg] 78 mm[Hg] Loni Carrera MA [employer] 08:42:27 Date Recorded Heart rate Respiratory rate Provider N joselito and Address Organization Details Last Updated DateTime 04/04/2024 79 /min 14 /min Ed Reynaga MD [address], [address], [place], [address], [employer] 04/04/2024 08:50:01 Social History Question Answer Notes LastModified by Organizat ion Details LastModified Time Tobacco Smoking Status Never Smoker Elías Toth, [facility] null, [employer] [facility] 07/11/2023 15:40:48 What Is Your Level Of Alcohol Consumption? Occasional [email or web address] Information not available 07/11/2023 What Is Your Level Of Caffeine Consumption? Moderate Information not available 07/11/2023 In The 14 [...] not available 03/22/2024 What Is Your Occupation? [employer] Information not available 03/22/2024 Have You Been [...] Anxious, Or Unable To Sleep At Night)? [id number] Information not available 03/22/2024 Do You Use Any Illicit Or Recreational Drugs? No [email or web address] Information not available 07/11/2023 Do You Use [...] Organization Details LastModified Time Father Diabetes mellitus Not available 2023 15:39:08 Father Hypertensive disorder [email or web address] Not available 2023 15:39:34 Father Chronic kidney disease [email or web address] Not available 2024 16:44:54 Mother Diabetes mellitus [email or web address] Not available 2023 15:39:08 Mother Hypertensive disorder [email or web address] Not available 2023 15:39:34 Mother Obstructive sleep [...] SNOMED-CT Code Diagnosis ICD10 Code Diagnosis Note [id number] Spike Navas DPM [facility] [address] [address] 07/11/2023 15:17:13 10/04/2023 17:50:53 Plantar fasciitis of right foot 5284637996 9072988 M72.2 Pain in right foot 16455 59515 14276 M79.671 Edema of l ower extremity 385472581 R60.0 Leg length inequality 45 507607 M21.70 [id number] Spike Navas DPM [facility] [place] [address] [place] [address] [address] 07/20/2023 09:05:50 07/20/2023 09:53:32 Pain in right foot 4905581590 15013 M79.671 Edema of l ower extremity 074950428 R60.0 Plantar fa sciitis of right foot 0839779058 7853884 M72.2 Leg length inequality 45 153892 M21.70 [id number] Spike Navas DPM [facility] [place] [address] [place] [address] [address] 09/07/2023 10:19:16 09/07/2023 14:45:41 Plantar fasciitis 579132305 M72.2 Pain in right foot 18479 53648 80550 M79.175 [id number] Spike Navas DPM [facility] [place] [address] [place] [address] [address] 09/14/2023 12:01:15 09/14/2023 12:35:34 [id number] Spike Navas DPM [facility] [place] [address] [place] [address] 09/21/2023 11:54:24 09/22/2023 10:15:08 Pain in right foot 6137266412 93594 M79.671 Edema of l ower extremity 075708890 R60.0 [id number] Spike Navas DPM [facility] [place] [address] [place] [address] [address] 09/28/2023 11:32:25 09/28/2023 12:52:52 Pain in right foot 8108987809 12470 M79.671 Edema 938515900 R60.9 Edema of l ower extremity 826505720 R60.0 [id number] Spike Navas DPM [facility] [place] [address] [place] [address] 1 10/06/2023 15:56:09 11/28/2023 16:38:07 Pain in right foot 8064359471 58022 M79.671 Edema of l ower extremity 286481079 R60.0 [id number] Ed Reynaga MD [facility] [address] [place] [address] 0 03/22/2024 14:07:32 03/26/2024 15:16:22 Sleep apnea 23820158 G47.30 G47.33 G47.36 G47.61 [id number] Ed Reynaga MD [facility] [address] [place] [address] 0 04/04/2024 08:30:02 04/04/2024 09:10:35 Obstructive sleep apnea syndrome 06475387 G47.33 Health Concerns Section Related Observation LastModified by Organization Detai ls LastModified Time None Recorded Concern Status LastModified by Organization Details LastModified Time None Recorded Advance Directives Directive None Recorded Payers Encounter Date Sequence Insurance Name Policy Number Policy Astorga Covered Member ID Astorga Member ID Guarantor Name 09/21/2023 1 [employer] [place] [id number] Jaja Parry [id number] Jaja Parry 09/28/2023 1 [employer] [place] [id number] Jaja Parry [id number] Jaja Parry 10/06/2023 1 [employer] [place] [id number] Jaja Parry [id number] Jaja Parry 03/22/2024 1 [employer] [place] [id number] Jaja Parry [id number] Jaja Parry 04/04/2024 1 [employer] [place] [id number] 0003 Jaja Parry [id number] Jaja Parry Notes Date Note Type Note Provider Name and Address Organization Details Recorded Time 09/21/2023 text/html Pt RTC for sever PFitis, heel spur, Rt foot. Unrelieved by oral meds, taping and support, injections. Spike Navas DPM [address], [address], [place], [address], [employer] 09/22/2023 09:02:20 09/28/2023 text/html Pt RTC for [...] Navas DPM [address], [place], [address], [employer] 09/28/2023 12:28:07 10/06/2023 text/html Pt RTC in low pr ofile walker. States that she still has pain during ambulation, 30% improved since pain was at its worst. Pt was instructed on proper application of the device (too loose as worn). Spike Navas DPM [address], [place], [address], [employer] 10/07/2023 09:20:43 03/22/2024 text/html Primary care/Ref erring provider: Jennifer Rico PA-C During the [facility] home sleep study on 03/20/24, AHI = [...] moderate chance of dozing. Ed Reynaga MD [address] [place] [address], [address], [place] [facility] [employer] 03/22/2024 14:58:59 04/04/2024 text/html Primary care/Ref erring provider: Jennifer Rico PA-C During the [facility] home sleep study on 03/20/24, AHI = 12, supine AHI = 28. During the [facility] titration sleep study on 03/31/24, sleep onset [...] moderate chance of dozing. Ed Reynaga MD [address] [place] [address], [place], [address], [facility] 04/04/2024 08:56:18 OBGyn Episode No OBEpisode recorded.
== END 2024-05-23 12:23 | disposition home or self-care (01) ==
PROVIDERS: PCP Physician Assistant; Visit Provider Physician Assistant
DX: M79.671 Pain in right foot (principal)
CPT/HCPCS: 73630

== ENCOUNTER 2024-06-06 08:10 | Outpatient (CLI) | payer OTHER, SELFPAY ==
--- NOTE | ~2024-06-06 | MM_ITS ---
EXAMINATION: MM screening samia BI w mathew HISTORY: Screening TECHNIQUE: Craniocaudal and mediolateral oblique 3-D tomosynthesis images were obtained and synthetic 2-D images were generated. CAD analysis was submitted and interpreted. COMPARISON: Comparison to multiple prior studies sequentially, with oldest reviewed study dated 03/19. BREAST PARENCHYMAL COMPOSITION: Dense: The breasts are heterogeneously dense, which may obscure small masses FINDINGS: There is no evidence of suspicious mass, calcification, or architectural distortion to sugg est malignancy in either breast. There has been no suspicious interval change. IMPRESSION: 1. No mammographic evidence of malignancy. 2. Recommend routine screening mammography in one year. BI-RADS Category 1: Negative Reviewed, dictated and finalized at location A.
--- OUTSIDE RECORDS SUMMARY | 2024-06-06 08:21 | XMS_ITS | CONTINUITY OF CARE DOCUMENT ---
Author Name shyla mansfield Address Unknown Organization [facility] Address [address] [address] [place] [address] Phone [phone] Care Team Providers Care Hub Borer Name Role Phone shyla mansfield Unavailable Unavailable INSURANCE PROVIDERS Payer name Policy type / Coverage type Roland red republican ID [id number] MEDICAID (2) Medicaid [id number]
--- OUTSIDE RECORDS SUMMARY | 2024-06-06 08:21 | XMS_ITS | Data Portability ---
Author Organization [place] - [facility], Main Office Address [address] [place] [address] Assessment Encounter Date Assessment Date Assessment LastModified by Organization Details LastModified Time 03/22/2024 03/22/2024 Assessment: Mild OSAHS, AHI = 12 PLMD Hypoventilation Plan: The following were reviewed and explained to the patient: primary care/referral note [facility] home sleep study 03/20/24 AHI [...] were reviewed and explained to the patient: [facility] home sleep study 03/20/24 AHI = 12, supine AHI = 28 [facility] titration sleep study 03/31/24 sleep [...] carrier. Patient will setup an appointment with [facility] for supplies and pressure adjustments. A major [...] further management. Follow-up: 3 months, June 2024 [facility] Not available 04/04/2024 08:49:31 Plan of [...] call patient to schedule. 2024 025 CATHERINE [facility], [address] [place], [address], 04/30/2024 15:24:04 Medication Orders None recorded. Patient TargetsNo targets recorded. Patient Instructions Encounter Date Encounter Id Patient Instructions Last Modified By Organization Details Last Modified Time 09/21/2023 [id number] application of cast, short leg cast* CATHERINE Not available 04/01/2024 05:01:47 Reason for Referral None Reported. Results Created Date Observation Date Name Description Value Unit Range Abnormal Flag Note LastModifiedBy Organization Detail LastModifiedTime 03/22/1903/20/2024 home sleep study No observ ation record ed. [facility] Not Available 2024 10:21:02 04/04/1903/31/2024 polys omnog michael, titra tion study No observ ation record ed. [facility] [address] [place], [address], 04/30/2024 15:24:04 Result Notes None recorded. Problems Name Problem SNOMED Code Status Onset Date Resolution Date Notes Provider Name and Address Organization Details Recorded Time Plantar fasciitis of right foot 6533130113895 9101 Active 2023 ANNA MARIE Alvarez null, [employer] 4 15:49:57 Leg length inequality 28345371 Active 2023 Spike Navas DPM [address], [place], [address], [employer] 4 16:21:06 Sleep apnea 77822948 Active 2024 Ed Reynaga MD [address], [place], [address], [employer] 5 14:46:50 Obstructive sleep apnea syndrome 68325646 Active 2024 Ed Reynaga MD [address], [place], [address], [employer] 08:35:25 Notes: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 Procedures Surgical History Date Name Laterality Status Provider Name and Address Organization Details Recorded Time 01/29/20 Hysterectomy completed Jen Thomas MA [employer] 03/22/2024 14:22:36 10/06/19 Unna boot - LE edema completed Spike Navas DPM [address], [place], [address], [employer] 10/07/2023 09:20:24 09/28/19 24 Unna boot - LE edema completed Spike Navas DPM [address], [place], [address], [employer] [facility] 09/28/2023 12:27:34 09/21/19 24 Trigger Point Injection completed Spike Navas DPM [address], [place], [address], [employer] [facility] 09/22/2023 08:43:43 09/14/19 24 Corticosteroid Injection completed Spike Navas DPM [address], [place], [address], [employer] [facility] 09/14/2023 12:28:46 09/14/19 24 Strapping Foot & Ankle completed Spike Navas DPM [address], [place], [address], [employer] [facility] 09/14/2023 12:28:06 09/07/19 24 Trigger Point Injection completed Spike Navas DPM [address], [place], [address], [facility] [email or web address] [facility] [place] [employer] [facility] 09/07/2023 14:32:22 09/07/19 24 Strapping Foot & Ankle completed Spike Navas DPM [address], [place], [address], [facility] [email or web address] [facility] [place] [facility] 09/07/2023 14:32:40 07/20/19 24 Trigger Point Injection completed Spike Navas DPM [address], [place], [address], [employer] [facility] [place] [facility] 07/20/2023 09:26:00 07/20/19 24 Unna boot - LE edema completed Spike Navas DPM [address], [place], [address], [facility] [email or web address] [facility] [place] [facility] 07/20/2023 09:26:07 07/11/19 24 Trigger Point Injection completed Spike Navas DPM [address], [place], [address], [employer] [facility] [place] [facility] 07/11/2023 16:19:47 07/11/19 24 Unna boot - LE edema completed Spike Navas DPM [address], [place], [address], [facility] [email or web address] [facility] [place] [facility] 07/11/2023 16:20:08 cholecystectomy completed Jen schwab MA [facility] [employer] [facility] 03/22/2024 14:22:42 section completed Jen alcantara MA [facility] [employer] [facility] 03/22/2024 14:22:58 Imaging Results Imaging Date Name Status LastModified by Organiz ation Details LastModified Time 03/20/2024 home sleep study completed [facility] Information not available 03/22/2024 10:21:02 03/31/2024 polysomnogram, titration study completed [email or web address] [place] [address], [place], [address], 04/30/2024 15:24:04 Procedure Notes None recorded. Medical [...] Updated DateTime 4 172.72 cm 39.8 kg/m2 690532. 2 g 98 % 98 % 98.2 [degF] 66 /min Elías Toth [employer] 4 12:04:37 Date Recorded Body height Body mass index (BMI) Body weight Oxygen saturation Oxygen saturation in Arterial blood by Pulse oximetry Body temperature Heart rate Provider Name and Address Organization Details Last Updated DateTime 4 172.72 cm 39.8 kg/m2 280152. 2 g 98 % 98 % 98.2 [degF] 70 /min Elías Toth [employer] 4 11:40:22 Date Recorded Body height Body mass index (BMI) Body weight Oxygen saturation Oxygen saturation in Arterial blood by Pulse oximetry Body temperature Heart rate Provider Name and Address Organization Details Last Updated DateTime 4 172.72 cm 39.8 kg/m2 181606. 2 g 96 % 96 % 98.4 [degF] 77 /min Elías Toth [facility] [employer] 4 16:01:00 Date Recorded Body height Body mass index (BMI) Body weight Body temperature Heart rate Oxygen saturation Oxygen saturation in Arterial blood by Pulse oximetry Systolic blood pressure Diastolic blood pressure Provider Name and Address Organization Details Last Updated DateTime 5 172.72 cm 39.5 kg/m2 590931. 02 g 98.1 [degF] 68 /min 97 % 97 % 116 mm[Hg] 82 mm[Hg] Jen Thomas MA [employer] 5 14:25:41 Date Recorded Heart rate Respiratory rate Provider N [email or web address] and Address Organization Details Last Updated DateTime 03/22/2024 68 /min 15 /min Ed Reynaga MD [address], [place], [address], [employer] 03/22/2024 14:33:06 Date Recorded Body height Body mass index (BMI) Body weight Heart rate Oxygen saturation Oxygen saturation in Arterial blood by Pulse oximetry Body temperature Systolic blood pressure Diastolic blood pressure Provider Name and Address Organization Details Last Updated DateTime 172.72 cm 39.8 kg/m2 712146. 76 g 79 /min 97 % 97 % 98.2 [degF] 122 mm[Hg] 78 mm[Hg] Loni Carrera MA [employer] 08:42:27 Date Recorded Heart rate Respiratory rate Provider N joselito and Address Organization Details Last Updated DateTime 04/04/2024 79 /min 14 /min Ed Reynaga MD [address], [place], [address], [employer] 04/04/2024 08:50:01 Social History Question Answer Notes LastModified by Organizat ion Details LastModified Time Tobacco Smoking Status Never Smoker Elías Toth, [facility] null, [employer] [facility] 07/11/2023 15:40:48 What Is Your Level Of Alcohol Consumption? Occasional [email or web address] Information not available 07/11/2023 What Is Your Level Of Caffeine Consumption? 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 [id number] Information not available 03/22/2024 Do You Use Any Illicit Or Recreational Drugs? No Information not available 07/11/2023 Do You Use [...] Organization Details LastModified Time Father Diabetes mellitus [email or web address] Not available 2023 15:39:08 Father Hypertensive disorder [email or web address] Not available 2023 15:39:34 Father Chronic kidney disease [email or web address] Not available 2024 16:44:54 Mother Diabetes mellitus [email or web address] Not available 2023 15:39:08 Mother Hypertensive disorder [email or web address] Not available 2023 15:39:34 Mother Obstructive sleep [...] SNOMED-CT Code Diagnosis ICD10 Code Diagnosis Note [id number] Spike Navas DPM [facility] [address] [address] 07/11/2023 15:17:13 10/04/2023 17:50:53 Plantar fasciitis of right foot 0766161650 4153128 M72.2 Pain in right foot 59079 40776 24624 M79.671 Edema of l ower extremity 987873302 R60.0 Leg length inequality 45 544133 M21.70 [id number] Spike Navas DPM [facility] [place] [address] [place] [address] [address] 07/20/2023 09:05:50 07/20/2023 09:53:32 Pain in right foot 8235709488 16798 M79.671 Edema of l ower extremity 572072666 R60.0 Plantar fa sciitis of right foot 3923044205 3564700 M72.2 Leg length inequality 45 893216 M21.70 [id number] Spike Navas DPM [facility] [place] [address] [place] [address] [address] 09/07/2023 10:19:16 09/07/2023 14:45:41 Plantar fasciitis 472657210 M72.2 Pain in right foot 14186 17541 40266 M79.483 [id number] Spike Navas DPM [facility] [place] [address] [place] [address] [address] 09/14/2023 12:01:15 09/14/2023 12:35:34 [id number] Spike Navas DPM [facility] [place] [address] [place] [address] 09/21/2023 11:54:24 09/22/2023 10:15:08 Pain in right foot 8680131785 99481 M79.671 Edema of l ower extremity 236535711 R60.0 [id number] Spike Navas DPM [facility] [place] [address] [place] [address] [address] 09/28/2023 11:32:25 09/28/2023 12:52:52 Pain in right foot 9224803875 63176 M79.671 Edema 182281391 R60.9 Edema of l ower extremity 755284976 R60.0 [id number] Spike Navas DPM [facility] [place] [address] [place] [address] 1 10/06/2023 15:56:09 11/28/2023 16:38:07 Pain in right foot 4374478976 32426 M79.671 Edema of l ower extremity 712865232 R60.0 [id number] Ed Reynaga MD [facility] [address] [place] [address] 0 03/22/2024 14:07:32 03/26/2024 15:16:22 Sleep apnea 25086540 G47.30 G47.33 G47.36 G47.61 [id number] Ed Reynaga MD [facility] [address] [place] [address] 0 04/04/2024 08:30:02 04/04/2024 09:10:35 Obstructive sleep apnea syndrome 10691611 G47.33 Health Concerns Section Related Observation LastModified by Organization Detai ls LastModified Time None Recorded Concern Status LastModified by Organization Details LastModified Time None Recorded Advance Directives Directive None Recorded Payers Encounter Date Sequence Insurance Name Policy Number Policy Astorga Covered Member ID Astorga Member ID Guarantor Name 09/21/2023 1 [employer] [place] [id number] Jaja Parry [id number] Jaja Parry 09/28/2023 1 [employer] [place] [id number] Jaaj Parry [id number] Jaja Parry 10/06/2023 1 [employer] [place] [id number] Jaja Parry [id number] Jaja Parry 03/22/2024 1 [employer] [place] [id number] 0003 Jaja Parry [id number] Jaja Parry 04/04/2024 1 [employer] [place] [id number] 0003 Jaja Parry [id number] Jaja Parry Notes Date Note Type Note Provider Name and Address Organization Details Recorded Time 09/21/2023 text/html Pt RTC for sever PFitis, heel spur, Rt foot. Unrelieved by oral meds, taping and support, injections. Spike Navas DPM [address], [place], [address], [employer] 09/22/2023 09:02:20 09/28/2023 text/html Pt RTC for [...] Navas DPM [address], [place], [address], [employer] 09/28/2023 12:28:07 10/06/2023 text/html Pt RTC in low pr ofile walker. States that she still has pain during ambulation, 30% improved since pain was at its worst. Pt was instructed on proper application of the device (too loose as worn). Spike Navas DPM [address], [place], [address], [employer] 10/07/2023 09:20:43 03/22/2024 text/html Primary care/Ref erring provider: Jennifer Rico PA-C During the [facility] home sleep study on 03/20/24, [...] moderate chance of dozing. Ed Reynaga MD [address] [place] [address], [address], [place] [facility] [facility] [email or web address] 03/22/2024 14:58:59 04/04/2024 text/html Primary care/Ref erring provider: Jennifer Rico PA-C During the [facility] home sleep study on 03/20/24, AHI = 12, supine AHI = 28. During the [facility] titration sleep study on 03/31/24, [...] moderate chance of dozing. Ed Reynaga MD [address] [place] [address], [place], [address], [facility] 04/04/2024 08:56:18 OBGyn Episode No OBEpisode recorded.
== END 2024-06-06 08:11 | disposition home or self-care (01) ==
LOC: ANHIMG 08:12
PROVIDERS: PCP Physician Assistant; Visit Provider Physician Assistant
DX: Z12.31 Encounter for screening mammogram for malignant neoplasm of breast (principal)
CPT/HCPCS: 77063; 77067

== ENCOUNTER 2024-08-21 21:51 | Emergency (ER) | payer OTHER, SELFPAY ==
--- NOTE | ~2024-08-21 | XR_ITS ---
HISTORY: R foot injury COMPARISON: 05/23/2024 TECHNIQUE: 3 views of the right foot were performed FINDINGS: No acute fracture or dislocation is appreciated. Trace degenerative disease is noted. The base of the fifth metatarsal is intact. Moderate calcaneal spur is noted. Ossification of the insertion of the Achilles tendon is present. No significant soft tissue swelling is present. IMPRESSION: Degenerative disease without acute fracture, as detailed above. Reviewed, dictated and finalized at location A.
[2024-08-21 21:53] VITALS: BP 128/68; PULSE 78; RESP 16; TEMP 36.7; O2SAT 100
--- NOTE | 2024-08-21 23:10 | ED.LOWEXIN ---
HPI - Extremity Injury (Lower) General Chief Complaint: Extremity Injury, Lower <Carlene Ramirez APRN - Last Filed: 08/22/24 00:53> Stated Complaint: Right big toe nail ripped off by dog <Carlene Ramirez APRN - Last Filed: 08/22/24 00:53> Time Seen by Provider: 08/21/24 22:42 <Carlene Ramirez APRN - Last Filed: 08/22/24 00:53> History of Present Illness HPI Narrative: Patient is a 44-year-old female who presents to the ER with right great toe pain. She reports she had a blanket over her feet when her her dog jumped and his toenail went inside of her great toenail and bent her toe backward. Patient reports she was bleeding behind her toenail, so her son retracted up and it has since subsided. She denies any history of diabetes. Patient reports she is up-to-date on her tetanus shot, as she had a hysterectomy in January 2024. She also endorses a history of high blood pressure. <Carlene Ramirez APRN - Last Filed: 08/22/24 00:53> Related Data Home Medications: Home Medications ?Medication ?Instructions ?Recorded ?Confirmed ?Last Taken ?Type hydrochlorothiazide 25 mg tablet 25 mg PO DAILY 07/20/22 02/24/24 02/23/24 History <Carlene Ramirez APRN - Last Filed: 08/22/24 00:53> Allergies/Adverse Reactions: Allergies Allergy/AdvReac Type Severity Reaction Status Date / Time No Known Allergies Allergy Verified 05/05/24 10:30 <Carlene Ramirez APRN - Last Filed: 08/22/24 00:53> Review of Systems Review of Systems: All systems reviewed & are unremarkable except as noted in HPI and below <Carlene Ramirez APRN - Last Filed: 08/22/24 00:53> PMFSH Past Medical History Medical History: Medical History Morbid obesity HTN (hypertension) Hx of migraines Healthy female adult <Carlene Ramirez APRN - Last Filed: 08/22/24 00:53> Surgical History Surgical History: Surgical History History of hysterectomy No history of previous surgery <Carlene Ramirez APRN - Last Filed: 08/22/24 00:53> Family History Family History: Family History Mother Family history non-contributory <Carlene Ramirez APRN - Last Filed: 08/22/24 00:53> Social History Social History: Social History Smoking status: Never smoker Alcohol use details: 1 Beer per month Substance use: never Living arrangements: with family Additional living arrangements comments: Son Gender identity (if verbalized by the patient): Female Sexual Orientation (if Verbalized by the Patient): Straight or Heterosexual Spiritual care concerns: No <Carlene Ramirez APRN - Last Filed: 08/22/24 00:53> Exam Narrative: GENERAL: Well appearing, well-nourished, non-toxic, in no acute distress. HEAD: Normocephalic, atraumatic. NECK: Supple. No adenopathy, no masses. RESPIRATORY: Airway patent, respirations nonlabored. Clear to auscultation bilaterally, no rales, rhonchi, wheezing. CARDIOVASCULAR: Regular rate and rhythm without murmurs, rubs, or gallops. Peripheral pulses 2+ and equal bilaterally. ABDOMINAL: Soft, nontender, nondistended, no hepatosplenomegaly. Normoactive BS. MUSCULOSKELETAL: Moves all extremities. Strength/ROM intact without gross deformities. SKIN: Warm, dry, normal color. No rashes. Dried blood behind R great toenail, small tear in L upper corner of toenail NEURO: A&O X3. Speech clear. Cranial nerves II-XII intact. No ataxic movements. PSYCHIATRIC: Appropriate mood and affect. Normal interaction. <Carlene Ramirez APRN - Last Filed: 08/22/24 00:53> Course SEARCH ENGINE OPTIMIZER/PA Physician Supervision For this patient encounter, I reviewed the SEARCH ENGINE OPTIMIZER or PA documentation, treatment plan, and medical decision making; and I had [id number]-[id number] time with this patient. <Damon Savage MD - Last Filed: 08/22/24 01:40> Vital Signs Vital signs: Vital Signs Temperature 98.0 F 08/21/24 21:53 Pulse Rate 78 08/21/24 21:53 Respiratory Rate 16 08/21/24 21:53 Blood Pressure 128/68 08/21/24 21:53 Pulse Oximetry 100 08/21/24 21:53 Oxygen Delivery Room Air 08/21/24 21:53 Temperature 98.0 F 08/21/24 21:53 Pulse Rate 61 08/22/24 00:59 Respiratory Rate 20 08/22/24 00:59 Blood Pressure 102/71 08/22/24 00:59 Pulse Oximetry 97 08/22/24 00:59 Oxygen Delivery Room Air 08/21/24 21:53 <Carlene Ramirez APRN - Last Filed: 08/22/24 00:53> Vital Signs Temperature 98.0 F 08/21/24 21:53 Pulse Rate 78 08/21/24 21:53 Respiratory Rate 16 08/21/24 21:53 Blood Pressure 128/68 08/21/24 21:53 Pulse Oximetry 100 08/21/24 21:53 Oxygen Delivery Room Air 08/21/24 21:53 Temperature 98.0 F 08/21/24 21:53 Pulse Rate 61 08/22/24 00:59 Respiratory Rate 20 08/22/24 00:59 Blood Pressure 102/71 08/22/24 00:59 Pulse Oximetry 97 08/22/24 00:59 Oxygen Delivery Room Air 08/21/24 21:53 <Damon Savage MD - Last Filed: 08/22/24 01:40> MDM - Extremity Injury (Lower) MDM Narrative Medical decision making narrative: Patient is a 44-year-old female who presents to the ER with right great toe pain. She reports she had a blanket over her feet when her her dog jumped and his toenail went inside of her great toenail and bent her toe backward. Patient reports she was bleeding behind her toenail, so her son retracted up and it has since subsided. She denies any history of diabetes. Patient reports she is up-to-date on her tetanus shot, as she had a hysterectomy in January 2024. She also endorses a history of high blood pressure. Imaging Ordered: R foot x-ray Medications Ordered: Lillie PO Results: Patient's right foot x-ray indicates no acute fracture or dislocation is appreciated. Trace degenerative disease is noted. The base of the fifth metatarsal is intact. Moderate calcaneal spur is noted. Ossification of the insertion of the Achilles tendon is present. No significant soft tissue swelling is present. Diagnosis: R great toe sprain Consults: podiatry (outpatient), pt is already established with them Patient Education/Shared MDM: Results of imaging shared with patient. She endorses improvement of symptoms following medication administration. Patient is requesting removal of toenail but it was explained to patient that this would increase her risk of infection. It was advised pt allow the toenail to protect the skin underneath and allow it to fall off on its own. She verbalized understanding. Patient strongly advised to follow-up with her public relations director as soon as possible. Her R great toe will be cleaned and wrapped with coban prior to discharge. She will be discharged home with a prescription for Ibuprofen 800mg. Strict return precautions provided. Patient verbalized understanding and is in agreement with plan. Vital signs stable at time of discharge. All questions answered. <Carlene Ramirez APRN - Last Filed: 08/22/24 00:53> Differential Diagnosis Differential diagnosis: Likely fracture of toe and other (toe sprain, trauma to R great toe, hematoma) <Carlene Ramirez APRN - Last Filed: 08/22/24 00:53> Imaging Data Attestation: I personally reviewed and interpreted this imaging study as follows: <Carlene Ramirez APRN - Last Filed: 08/22/24 00:53> Radiologist's impression: Impressions Foot X-Ray 08/21/24 23:10 IMPRESSION: Degenerative disease without acute fracture, as detailed above. <Carlene Ramirez APRN - Last Filed: 08/22/24 00:53> Discharge Plan Discharge Clinical Impression: Abrasion of great toe, Great toe pain <Carlene Ramirez APRN - Last Filed: 08/22/24 00:53> Patient Disposition: Home <Carlene Ramirez APRN - Last Filed: 08/22/24 00:53> Condition: Stable <Carlene Ramirez APRN - Last Filed: 08/22/24 00:53> Instructions: Antibiotic Form <Carlene Ramirez APRN - Last Filed: 08/22/24 00:53> Additional Instructions: Please return to the ER with any worsening symptoms. Follow-up with your public relations director as soon as possible. Take all medications as prescribed, including regularly scheduled medications. May take Tylenol and ibuprofen together for pain control. Please keep your injured toe elevated when possible. <Carlene Ramirez APRN - Last Filed: 08/22/24 00:53> Patient Language: Cypriot <Carlene Ramirez APRN - Last Filed: 08/22/24 00:53> Prescriptions: New ibuprofen 800 mg tablet 800 mg PO TID PRN (Reason: pain) Qty: 60 0RF No Action hydrochlorothiazide 25 mg tablet 25 mg PO DAILY hydrocodone-acetaminophen 5-325 mg tablet 1 - 2 tablet PO Q6H PRN (Reason: pain) Qty: 25 0RF <Carlene Ramirez APRN - Last Filed: 08/22/24 00:53> Follow-up/Referrals: Ramon,ZANDRA Avila [Primary Care Provider] - <Carlene Ramirez APRN - Last Filed: 08/22/24 00:53> Stand Alone Forms: Work/School Release IP <Carlene Ramirez APRN - Last Filed: 08/22/24 00:53> Time of Disposition: 00:54 <Carlene Ramirez APRN - Last Filed: 08/22/24 00:53> 00:54 <Damon Savage MD - Last Filed: 08/22/24 01:40>
[2024-08-21 23:21] VITALS: BP 110/58; PULSE 68; RESP 17; O2SAT 99
[2024-08-21] MEDS: HYDROcodone/acetaminophen (*CRX) 5-325 MG TABLET 1 TAB PO (23:21)
[2024-08-21 23:32] VITALS: BP 112/57; PULSE 70; RESP 19; O2SAT 97
[2024-08-22 00:59] VITALS: BP 102/71; PULSE 61; RESP 20; O2SAT 97
== END 2024-08-22 01:00 | disposition home or self-care (01) ==
PROVIDERS: Emergency Provider Registered Nurse; PCP Physician Assistant
DX: S90.411A Abrasion, right great toe, initial encounter (principal); I10 Essential (primary) hypertension; E66.01 Morbid (severe) obesity due to excess calories; Z68.41 Body mass index [BMI] 40.0-44.9, adult; Z90.710 Acquired absence of both cervix and uterus; Z79.899 Other long term (current) drug therapy; W54.1XXA Struck by dog, initial encounter
CPT/HCPCS: 73630; 99283; A9270

== ENCOUNTER 2024-11-03 08:59 | Emergency (ER) | payer OTHER, SELFPAY ==
--- NOTE | 2024-11-03 09:04 | ED.EYEPROB ---
HPI - Eye Problem General Chief complaint: Eye Problems Stated complaint: left eye swollen patient presents to the [facility] with waking up this swelling to left eye, matting, drainage, and pain to the left eye. also right eye. Noted due to the swelling she has Loss of vision left eye. Patient does report some sinus pain over the left cheek. Denies fever, chills, body aches, dizziness, headaches, or cough. No medications or remedies attempted for symptoms. Related Data Home Medications ?Medication ?Instructions ?Recorded ?Confirmed ?Last Taken ?Type hydrochlorothiazide 25 mg tablet 25 mg PO DAILY 07/20/22 02/24/24 02/23/24 History Allergies Allergy/AdvReac Type Severity Reaction Status Date / Time No Known Allergies Allergy Verified 11/03/24 09:01 Review of Systems Constitutional: Constitutional: Reports as per HPI, Denies chills, Denies fatigue, Denies fever(s) and Denies weakness Eyes: Eyes: Reports as per HPI, Reports change in vision and Denies photophobia Comments: swelling around left eye. drainage and matting to left eye. some loss of vision due to swelling in left eye. minimal drainage right eye ENT: Reports as per HPI, Denies vertigo, Denies dizziness, Denies nasal congestion and Denies sore throat Comments: sinus pain left cheek Cardiovascular: Cardiovascular: Reports as per HPI Respiratory: Respiratory: Reports as per HPI, Denies chest congestion, Denies cough, Denies dyspnea and Denies wheezing Gastrointestinal: Gastrointestinal: Reports no additional gastrointestinal complaints Genitourinary: Genitourinary: Reports no additional female genitourinary complaints Musculoskeletal: Musculoskeletal: Reports no additional musculoskeletal complaints Integumentary/Breasts: Skin/Breast: Reports as per HPI and Reports erythema Neurologic: Reports as per HPI, Denies vertigo, Denies dizziness, Denies syncope and Denies headache(s) Psychiatric: Psychiatric: Reports no additional psychiatric complaints Endocrine: Endocrine: Reports no additional endocrine complaints Hematologic/Lymphatic: Hematologic/Lymphatic: Reports no additional hematologic/lymphatic complaints Allergic/Immunologic: Allergic/Immunologic: Reports no additional allergic/immunologic complaints [facility] Past Medical History Medical History Morbid obesity HTN (hypertension) Hx of migraines Healthy female adult Surgical History Surgical History History of hysterectomy No history of previous surgery Family History Family History Mother Family history non-contributory Social History Social History Smoking status: Never smoker Alcohol use details: 1 Beer per month Substance use: never Living arrangements: with family Additional living arrangements comments: Son Gender identity (if verbalized by the patient): Female Sexual Orientation (if Verbalized by the Patient): Straight or Heterosexual Spiritual care concerns: No Exam Const: General: healthy appearing and no acute distress Nutritional Appearance: well nourished Orientation/consciousness: patient oriented x3 Limitations: no limitations HENMT: Ears: external ears normal and TM's normal bilaterally Face/Nose/Sinus: Normal external nose present and Normal nares present Face and sinus: sinus tenderness ( left only) maxillary Eyes: Conjunctivae: conjunctival abnormality ( injection and exudate noted) left Pupils: Equal, round and reactive pupils present EOM: EOMs intact bilaterally Direct Ophthalmoscopy: photophobia ( left eye only) Neck: Neck: normal visual inspection and no lymphadenopathy Resp: Effort & Inspection: normal respiratory effort Auscultation: clear to auscultation bilaterally Cardio: Rate: regular rate Rhythm: regular rhythm Skin: General skin exam: normal color Rashes: no rashes Wounds: no wounds Neuro: General: patient oriented x3 Cranial nerves: Yes Nystagmus not present Speech: normal speech Gait exam (Neuro): Normal gait present Psych: Mental Status: mental status grossly normal Affect: normal affect Attitude: cooperative Course Course Level of Care: Express Care Visit MDM - Eye Problem MDM Narrative Medical decision making narrative: given the diffuse swelling and erythema and pain over sinus will put patient on antibiotics for skin infection as well as steroids for allergic reaction. Also given drainage, matting, and pain will place patient antibiotic. Educated patient is follow up with the Ophthalmology if symptoms not improving. The patient was evaluated by myself in the express care. History is obtained from patient who is an independent historian and physical exam was performed. Available medical records were reviewed at this time. Exam findings show no acute concerns or changes; patient is non-toxic appearing and is in no distress. Patient is appropriate for outpatient treatment and follow-up. I have evaluated and discussed social determinants of health with the patient that could potentially impact subsequent diagnosis and treatment plans. Differential diagnosis and treatment plan were discussed with the patient. Patient agrees with discussion and after shared medical decision making agrees with plan of care. All questions were answered to the patient's satisfaction. Differential Diagnosis Differential diagnosis: Likely corneal abrasion, conjunctivitis, periorbital cellulitis, subconjunctival hemorrhage and corneal ulcer Medical Records Attestation: I reviewed the patient's medical records. Discharge Plan Discharge Clinical Impression: Bacterial conjunctivitis, Periorbital edema of left eye Patient Disposition: Home Condition: Stable Instructions: Antibiotic Form, Allergies (ED), Conjunctivitis (ED), Cold Compress or Soak (ED) Additional Instructions: Your exam today shows Conjunctivitis, You have been given a prescription for eye drops. Use the eye drops as instructed. If you are not better in two (2) days, you need to follow up with an dental aide. Do not rub the eye or put anything else in the eye, this can cause abrasions (scratches) on the eye or lead to vision loss. Also it is important not to touch the tube or tip of drops to the eye, as this can cause further infection. Wash your hands very well before instilling the medication. Handwashing can help prevent the spread of disease. Follow up with PCP in 7-10 days Return to ER for problems Contact [facility] if you need an Diabetes Education Coordinator [] Patient Language: Greenlandic Prescriptions: New tobramycin 0.3 % drops 1 drp LEFT EYE Q4H 7 Days Qty: 5 0RF sulfamethoxazole-trimethoprim [Bactrim DS] 800-160 mg tablet 1 tablet PO Q12H Qty: 14 0RF prednisone 50 mg tablet 50 mg PO DAILY Qty: 5 0RF No Action hydrochlorothiazide 25 mg tablet 25 mg PO DAILY ibuprofen 800 mg tablet 800 mg PO TID PRN (Reason: pain) Qty: 60 0RF Follow-up/Referrals: Berhane,ZANDRA Avila [Primary Care Provider, Unknown] Stand Alone Forms: Work/School Release IP Time of Disposition: 09:19
[2024-11-03 09:06] VITALS: BP 134/88; PULSE 86; RESP 20; TEMP 36.4; O2SAT 100
== END 2024-11-03 09:24 | disposition home or self-care (01) ==
PROVIDERS: Emergency Provider Nurse Practitioner Family; PCP Physician Assistant
DX: H10.9 Unspecified conjunctivitis (principal); H05.222 Edema of left orbit; I10 Essential (primary) hypertension; E66.01 Morbid (severe) obesity due to excess calories; Z68.41 Body mass index [BMI] 40.0-44.9, adult
CPT/HCPCS: 99213; G0463